=== PATIENT | female | born 1970 | race Caucasian/White ===

== ENCOUNTER 2023-01-29 20:25 | Inpatient (IN) | payer OTHER, SELFPAY ==
--- NOTE | ~2023-01-29 | XR_ITS ---
XR chest 1V portable 02/01/2023 15:18 Indication: Respiratory failure Procedure: AP portable chest Comparison: Comparison to multiple prior studies sequentially, with oldest reviewed study dated 01/20. Findings: Cardiomegaly. Central venous catheter tip in the SVC. Persistent pulmonary edema. Small rig ht pleural effusion. No significant change. No pneumothorax. No acute osseous abnormality. Impression: 1: Stable pulmonary edema are no significant interval change. Reviewed, dictated and finalized at location A. Impression: 1: Stable pulmonary edema are no significant interval change.
--- NOTE | ~2023-01-29 | XR_ITS ---
Portable chest x-ray Comparison: 02/04/2023 Clinical History: Line placement Findings: Right-sided central venous line is in satisfactory position. Probable minimal bibasilar pu lmonary edema/atelectasis. No pneumothorax. Cardiomediastinal silhouette is stable. Bones and soft t issues are unremarkable. Impression: Support line in place, as above. No pneumothorax. Minimal bibasilar pulmonary edema/atelectasis. Reviewed, dictated and finalized at location . Impression: Support line in place, as above. No pneumothorax. Minimal bibasilar pulmonary edema/atelectasis.
--- NOTE | ~2023-01-29 | XR_ITS ---
XR fl guide central line place DATE: 02/06/2023 09:04 INDICATION: Placement of right subclavian catheter TECHNIQUE: Single spot C-arm radiographic exposure of the mid and right upper chest 24.5 seconds fluoroscopy time 7.07 mGy COMPARISON: 02/04/2023 portable AP chest FINDINGS: There has been interval removal of right internal jugular large-bore dual-lumen catheter, r eplaced by a right subclavian large-bore dual-lumen catheter, distal tip overlying the lower aspect o f the superior vena cava approximately. Another catheter is noted overlying the left subclavian and brachiocephalic veins and superior vena c francesca. No obvious pneumothorax is detected. IMPRESSION: Right subclavian large-bore dual lumen catheter placement Reviewed, dictated and finalized at Location A. Reviewed, dictated and finalized at location B.
--- NOTE | ~2023-01-29 | CT_ITS ---
EXAMINATION: CT brain wo con DATE: 02/02/2023 14:34 INDICATION: Altered mental status TECHNIQUE: Computed tomography (CT) of the head was performed without intravenous contrast. Sagittal and coronal reconstructions were performed. The mA was adjusted according to patient size. Iterative reconstruction technique was employed. The dose-length product was 605.33 mGy-cm. COMPARISON: None FINDINGS: Small region of encephalomalacia at the right temporal parietal occipital region. No acute intracrani al hemorrhage, acute infarction or abnormal extra axial fluid collection. Symmetric prominence of the sulci and and subarachnoid spaces overlying the convexities consistent with mild diffuse cerebral vo lume loss. Ventricles are normal and symmetric. No mass/mass effect. The orbits are normal. Small lef t mastoid effusion. Mild mucosal thickening in the bilateral ethmoid sinuses and small amount of post erior layering fluid in the right maxillary sinus. IMPRESSION: 1. 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 No acute intracranial process. Reviewed, dictated and finalized at location A.
--- NOTE | ~2023-01-29 | XR_ITS ---
Portable chest x-ray Comparison: None Clinical History: Shortness of breath Findings: Right-sided central venous line is in satisfactory position. There is mild pulmonary edema pattern with minimal pleural effusions. Cardiomediastinal silhouette is stable. Bones and soft tiss ues are unremarkable. Impression: Mild pulmonary edema pattern with minimal pleural effusions. Support line, as above. Reviewed, dictated and finalized at location . Impression: Mild pulmonary edema pattern with minimal pleural effusions. Support line, as above.
--- NOTE | ~2023-01-29 | XR_ITS ---
EXAMINATION: XR chest 1V portable DATE: 02/03/2023 05:37 INDICATION: Hypoxia. TECHNIQUE: A single frontal view of the chest was obtained. COMPARISON: Chest single view 02/01/2023 FINDINGS: There is a diffuse interstitial pattern in the lungs. There are airspace opacities in right mid and lower lung zones and left lower lung zone. There are small pleural effusions. No pneumothora x. Cardiomegaly is noted. A right internal jugular central venous catheter is seen with tip in the hernandez perior vena cava. IMPRESSION: 1. Stable diffuse lung disease with a basilar predominance, consistent with pulmonary edema and basil ar atelectasis versus pneumonia. 2. Stable small pleural effusions. 3. Cardiomegaly. Reviewed, dictated and finalized at location E. IMPRESSION: 1. Stable diffuse lung disease with a basilar predominance, consistent with pul monary edema and basilar atelectasis versus pneumonia. 2. Stable small pleural effusions. 3. Cardiomegaly.
--- NOTE | ~2023-01-29 | XR_ITS ---
XR chest 1V portable 01/31/2023 18:24 Indication: Hypoxia Procedure: AP portable chest Comparison: 01/31/2023 Findings: Cardiomegaly. Diffuse bilateral airspace disease is unchanged. Small pleural effusions. No pneumothorax. Large bore central venous catheter tip in the SVC. Impression: 1: Stable diffuse bilateral airspace disease, most likely edema. Pneumonia less favored. 2: Small pleural effusions. Reviewed, dictated and finalized at location A. Impression: 1: Stable diffuse bilateral airspace disease, most likely edema. Pneumonia less favored. 2: Small pleural effusions.
--- NOTE | ~2023-01-29 | XR_ITS ---
Portable chest x-ray Comparison: 01/30/2023 Clinical History: Tube placement Findings: Endotracheal tube and bilateral central venous lines are in satisfactory positions. There is probable central congestive change with mild pulmonary edema pattern. Possible minimal pleural eff usions. Cardiomediastinal silhouette is stable. Bones and soft tissues are unremarkable. Impression: Support tubes, as above. Mild pulmonary edema pattern with probable minimal pleural effusions. Reviewed, dictated and finalized at [facility]. Impression: Support tubes, as above. Mild pulmonary edema pattern with probable minimal pleural effusions.
--- NOTE | ~2023-01-29 | XR_ITS ---
EXAMINATION: XR chest port-a-cath/central INDICATION: Julio catheter insertion TECHNIQUE: Portable AP chest at 1911 hours COMPARISON: 1313 hours FINDINGS: An endotracheal tube has been inserted which ends 3.7 cm above the luzma. A right internal jugular catheter ends with this tip in the right atrium. A left subclavian central venous catheter h as been inserted which ends with its tip in the proximal superior vena cava. Cardiomegaly is noted. T here is diffuse pulmonary edema with interval worsening on the left. There are small pleural effusion s. No pneumothorax is identified. IMPRESSION: 1. Left subclavian central venous catheter inserted ending with its tip in the proximal superior vena cava. 2. Intubation with endotracheal tube in satisfactory position. 3. Diffuse pulmonary edema with interval worsening on the left. 4. Cardiomegaly. Reviewed, dictated and finalized at location F.
--- NOTE | ~2023-01-29 | XR_ITS ---
EXAMINATION: XR fl guide central line place INDICATION: Julio catheter insertion TECHNIQUE: A single intraoperative fluoroscopic images submitted for review. Total fluoroscopic time was 29.6 seconds. COMPARISON: None available FINDINGS: Fluoroscopic images demonstrate a left subclavian catheter ending in the proximal superior vena cava and a right internal jugular catheter ending in the right atrium. An endotracheal tube is n oted. The luzma is not well visualized. IMPRESSION: 1. Please refer to procedure note for full details. Reviewed, dictated and finalized at location F.
--- NOTE | ~2023-01-29 | XR_ITS ---
EXAMINATION: XR chest 1V portable DATE: 02/04/2023 10:00 INDICATION: Hypoxia TECHNIQUE: frontal view of the chest was obtained. COMPARISON: Chest radiograph dated 02/03/2023 FINDINGS: Large-bore dual-lumen right internal jugular central venous catheter with distal tip at the mid super ior vena cava. There is additional smaller bore left subclavian central venous catheter with distal t ip also at the midsuperior vena cava. Opacities at the bilateral lower lung zones with blunting at co stophrenic angles consistent with small bilateral pleural effusions and associated bibasilar atelecta sis and/or pneumonia. No pneumothorax or evident pulmonary edema. Mild cardiomegaly. Chronic nonunite d left clavicle fracture. IMPRESSION: 1. Small bilateral pleural effusions with associated bibasilar atelectasis and/or pneumonia. 2. Cardiomegaly. Reviewed, dictated and finalized at location A. IMPRESSION: 1. Small bilateral pleural effusions with associated bibasilar atelectasis and/ or pneumonia. 2. Cardiomegaly.
[2023-01-29 20:29] VITALS: BP 118/52; PULSE 87; RESP 16; TEMP 36.3; O2SAT 100
[2023-01-29 23:59] VITALS: BP 134/77; PULSE 89; RESP 16; TEMP 36.1; O2SAT 99
[2023-01-30] VITALS (43 sets, daily range): BP systolic 110–163; BP diastolic 52–119; PULSE 65–96; RESP 13–22; TEMP 7–36.8; O2SAT 90–100; BMI 38.7
--- NOTE | 2023-01-30 01:05 | ECG_ITS ---
Measurements Intervals [place] Rate: 84 P: 54 RI: 133 QRS: 46 QRSD: 102 T: -6 QT: 364 QTc: 432 Interpretive Statements SINUS RHYTHM INCOMPLETE RIGHT BUNDLE BRANCH BLOCK [90+ ms QRS DURATION, TERMINAL R IN V1/V2, 40+ ms S IN I/aVL/V4/V5/V6] ST DEVIATION AND MODERATE T-WAVE ABNORMALITY, CONSIDER ANTERIOR ISCHEMIA [-0.1+ mV T WAVE IN V3/V4] ABNORMAL ECG NO PREVIOUS ECG AVAILABLE FOR COMPARISON Electronically Signed On 01-30-2023 10:30:38 CDT by Davis Vazquez M.D.
--- NOTE | 2023-01-30 01:13 | ED.GENADULT ---
HPI - General Adult General Chief complaint: Unspecified Stated complaint: new HD patient with fran cath issues Time Seen by Provider: 01/30/23 00:52 History of Present Illness HPI narrative: Patient brought to the emergency department by EMS. She had a right tunnel catheter placed [address] [facility] in [place]. She has gotten a week of dialysis at home. However she has missed the past 5 days due to the catheter being clogged. She is unsure if she is scheduled to follow-up with vascular surgery. She comes in with generalized edema and shortness of breath. Patient also appears drowsy but answers questions appropriately. At times answers are difficult to understand. Related Data Allergies Allergy/AdvReac Type Severity Reaction Status Date / Time No Known Allergies Allergy Verified 01/29/23 20:25 Review of Systems Review of Systems: Review of systems limited due to being drowsy but overall no additional review of systems other than what is documented in the HPI Exam Narrative: GENERAL: Drowsy HEAD: Normocephalic, atraumatic. EYES: PERRLA and EOMI. ENT: Nares clear, no rhinorrhea or epistaxis. Mucous membranes moist. NECK: Supple. CHEST: Clear to auscultation. No respiratory distress. Right chest tunnel catheter in place HEART: Regular rate and rhythm. ABDOMEN: Soft, nontender, nondistended. EXTREMITIES: Normal range of motion. Bilateral lower extremity edema SKIN: Warm, dry, no rash. NEURO: No focal deficits. Alert and oriented x3. PSYCH: Normal mood and affect. Course Course Emergency Course: Differential diagnosis includes but not limited to pulmonary vascular congestion, fluid overload, hyperkalemia, urinary tract infection, pneumonia Concern the patient will need to see vascular surgery due to tunnel catheter not working appropriately at her needing dialysis. We will have a very low threshold to transfer. Currently vital signs are stable and she is on a couple liters of oxygen nasal cannula Vital Signs Vital signs: Vital Signs Temperature 36.3 C L 01/29/23 20:29 Pulse Rate 87 01/29/23 20:29 Respiratory Rate 16 01/29/23 20:29 Blood Pressure 118/52 L 01/29/23 20:29 Pulse Oximetry 100 01/29/23 20:29 Oxygen Delivery Nasal Cannula 01/29/23 20:29 Oxygen Flow Rate 2 01/29/23 20:29 Temperature 36.8 C 01/30/23 06:12 Pulse Rate 78 01/30/23 06:12 Respiratory Rate 13 01/30/23 06:12 Blood Pressure 135/73 01/30/23 06:12 Pulse Oximetry 100 01/30/23 06:12 Oxygen Delivery Nasal Cannula 01/30/23 01:02 Oxygen Flow Rate 3 01/30/23 01:02 Medical Decision Making MDM Narrative Medical decision making narrative: Potassium normal. BNP significantly elevated over 30,000. Chest x-ray shows pulmonary vascular congestion consistent with fluid overload. Her hemoglobin is 6.4. This is also likely secondary to fluid overload. We will plan to transfer back to hospital where the tunneled catheter was placed Dr Bowman placed the catheter. Discussed transfer with access line at [facility] 04:50a Discussed with hospitalist at [facility]. Also transfer line talked to vascular surgery. They have accepted patient as a transfer and put her on their list Also discussed patient with hospitalist at [facility]. Patient is accepted as a transfer there and she has been placed on their list Lasix and 1 unit of packed red blood cells ordered Due to high probability of clinically significant lift threatening deterioration, the patient required my highest level of preparedness to intervene emergently. Critical care time documented not including procedures needed Vital Signs Vital Signs: Vital Signs Temperature 36.3 C L 01/29/23 20:29 Pulse Rate 87 01/29/23 20:29 Respiratory Rate 16 01/29/23 20:29 Blood Pressure 118/52 L 01/29/23 20:29 Pulse Oximetry 100 01/29/23 20:29 Oxygen Delivery Nasal Cannula 01/29/23 20:29 Oxygen
[2023-01-30 02:10] LABS: Basophils Absolute Auto 0.1 K/mm3 (0.0-0.1); Basophils Percent Auto 0.8 % (0.2-1.2); Eosinophils Absolute Auto 0.1 K/mm3 (0-0.3); Eosinophils Percent Auto 1.3 % (0-4.4); Hematocrit 21.3 % (37.0-47.0); Immature Granulocyte Absolute 0.02 K/mm3 (0.00-0.031); Immature Granulocyte Percent A 0.3 % (0-0.5); Lymphocytes Absolute Auto 2.03 K/mm3 (0.9-3.2); Lymphocytes Percent Auto 25.4 % (18.3-44.2); Mean Corpuscular Hemoglobin 29.9 pg (26-34); Mean Corpuscular Volume 99.5 fl (80-100); Mean Platelet Volume 9.8 fl (7.4-10.4); Monocytes Absolute Auto 0.4 K/mm3 (0.1-0.6); Monocytes Percent Auto 5.5 % (2.6-8.5); Neutrophils Absolute Auto 5.3 K/mm3 (1.3-6.7); Neutrophils Percent Auto 66.7 % (45.5-73.1); Platelet Count Result 262 k/mm3 (150-375); Red Blood Count 2.14 M/mm3 (4.2-5.4); Red Cell Distribution Width 17.4 % (11.5-14.5)
[2023-01-30 02:25] LABS: Alanine Aminotransferase 16 U/L (6-35); Albumin Level 3.6 g/dL (3.5-5.1); Alkaline Phosphatase 82 U/L (38-126); Anion Gap 11 mmol/L (8-16); Aspartate Amino Transferase 22 U/L (14-36); Bilirubin,Total 0.8 mg/dL (0.2-1.3); Blood Urea Nitrogen 66 mg/dL (7-17); Calcium 8.7 mg/dL (8.4-10.2); Carbon Dioxide 25 mmol/L (22-30); Chloride 101 mmol/L (98-107); Estimated CRCL calculation 10 ml/min; Estimated Glomerular Filt Rate 7; Glucose 88 mg/dL (65-110); Hemoglobin 6.4 g/dL (12.0-15.0); Potassium 4.7 mmol/L (3.4-5.0); Sodium 137 mmol/L (137-145)
[2023-01-30 02:36] LABS: NT Pro B Type Natriuretic Pept > 30000 pg/mL (19.9-100); Troponin I < 0.012 ng/mL (0.000-0.034)
[2023-01-30 03:39] LABS: INR 1.1; Prothrombin Time 14.1 Seconds (11.1-14.7)
[2023-01-30 03:40] LABS: Partial Thromboplastin Time 31.2 SECONDS (22.3-36.8)
[2023-01-30 04:01] LABS: Lactic Acid Reflex 0.9 mmol/L (0.7-2.0)
[2023-01-30 04:12] LABS: Troponin I < 0.012 ng/mL (0.000-0.034)
--- NOTE | 2023-01-30 04:49 | PC.NURSE ---
OF 447 PT ON WAIT LIST AT [facility].
--- NOTE | 2023-01-30 05:06 | PC.NURSE ---
This RN spoke derick Hyde from [facility] xfr line for triage questions. Mary Ellen requested a covid test. This RN will verbalized request to EDP Dr. Stark.
[2023-01-30] MEDS: FUROSEMIDE INJ 100 MG/10 ML VIAL 80 MG IV PUSH (05:41)
[2023-01-30 05:50] LABS: Influenza A QL RT-PCR Negative (Negative); Influenza B QL RT-PCR Negative (Negative); RSV RNA, RT-PCR Negative (Negative); SARS-CoV-2 RNA PCR Negative (Negative)
[2023-01-30 05:59] LABS: Appearance Urine Clear (Clear); Bacteria Urine None Seen /hpf; Bilirubin Urine Negative (Negative); Blood Urine Negative (Negative); Color Urine Yellow (Yellow); Glucose Urine UA Negative (Negative); Ketones Urine Negative (Negative); Leukocyte Esterase Ur Negative LEU/UL (Negative); Nitrate Urine Negative (Negative); Non Pathogenic Casts 0-2; Protein Urine 2+ mg/dL (Negative); RBC Urine 0-2 /hpf (0-2); Squamous Epithelial Cell Urine None seen /hpf (Few); Urobilinogen Urine 0.2 mg/dL (<2.0); WBC Urine 0-5 /hpf
[2023-01-30 06:10] LABS: Add Urine Microscopic? YES
[2023-01-30] MEDS: TUBING, BLOOD PLUM PUMP TUBING 1 EACH XX (06:27)
[2023-01-30] MEDS: SODIUM CHLORIDE 0.9% IV 250 ML 30 ML IV CONT (06:54)
--- NOTE | 2023-01-30 07:07 | ED.GENADULT ---
HPI - General Adult General Chief complaint: Unspecified Stated complaint: new HD patient with fran cath issues Time Seen by Provider: 01/30/23 00:52 Related Data Allergies Allergy/AdvReac Type Severity Reaction Status Date / Time No Known Allergies Allergy Verified 01/29/23 20:25 Course Vital Signs Vital signs: Vital Signs Temperature 36.3 C L 01/29/23 20:29 Pulse Rate 87 01/29/23 20:29 Respiratory Rate 16 01/29/23 20:29 Blood Pressure 118/52 L 01/29/23 20:29 Pulse Oximetry 100 01/29/23 20:29 Oxygen Delivery Nasal Cannula 01/29/23 20:29 Oxygen Flow Rate 2 01/29/23 20:29 Temperature 36.4 C 01/30/23 06:28 Pulse Rate 79 01/30/23 06:28 Respiratory Rate 14 01/30/23 06:28 Blood Pressure 134/69 01/30/23 06:28 Pulse Oximetry 100 01/30/23 06:28 Oxygen Delivery Nasal Cannula 01/30/23 01:02 Oxygen Flow Rate 3 01/30/23 01:02 Medical Decision Making Vital Signs Vital Signs: Vital Signs Temperature 36.3 C L 01/29/23 20:29 Pulse Rate 87 01/29/23 20:29 Respiratory Rate 16 01/29/23 20:29 Blood Pressure 118/52 L 01/29/23 20:29 Pulse Oximetry 100 01/29/23 20:29 Oxygen Delivery Nasal Cannula 01/29/23 20:29 Oxygen Flow Rate 2 01/29/23 20:29 Temperature 36.4 C 01/30/23 06:28 Pulse Rate 79 01/30/23 06:28 Respiratory Rate 14 01/30/23 06:28 Blood Pressure 134/69 01/30/23 06:28 Pulse Oximetry 100 01/30/23 06:28 Oxygen Delivery Nasal Cannula 01/30/23 01:02 Oxygen Flow Rate 3 01/30/23 01:02 Lab Data 01/30/23 02:04 01/30/23 02:04 Labs: Lab Results 01/30/23 01/30/23 01/30/23 Range/Units 02:04 03:20 03:43 WBC 8.0 (4.5-10.0) K/mm3 RBC 2.14 L (4.2-5.4) M/mm3 Hgb 6.4 L* (12.0-15.0) g/dL Hct 21.3 L (37.0-47.0) % MCV 99.5 (80-100) fl MCH 29.9 (26-34) pg MCHC 30.0 L (32-36) g/dl RDW 17.4 H (11.5-14.5) % Plt Count 262 (150-375) k/mm3 MPV 9.8 (7.4-10.4) fl Immature Gran % (Auto) 0.3 (0-0.5) % Neut % (Auto) 66.7 (45.5-73.1) % Lymph % (Auto) 25.4 (18.3-44.2) % [place] % (Auto) 5.5 (2.6-8.5) % Eos % (Auto) 1.3 (0-4.4) % Baso % (Auto) 0.8 (0.2-1.2) % Lymph # (Auto) 2.03 (0.9-3.2) K/mm3 [place] # (Auto) 0.4 (0.1-0.6) K/mm3 Eos # (Auto) 0.1 (0-0.3) K/mm3 Baso # (Auto) 0.1 (0.0-0.1) K/mm3 Abs Immat Gran (auto) 0.02 (0.00-0.031) K/mm3 Absolute Neuts (auto) 5.3 (1.3-6.7) K/mm3 Absolute Nucleated RBC 0.0 (0.0-0.012) K/mm3 Nucleated RBC % 0.0 (0.0-0.2) % PT 14.1 (11.1-14.7) Seconds INR 1.1 APTT 31.2 (22.3-36.8) SECONDS Sodium 137 (137-145) mmol/L Potassium 4.7 (3.4-5.0) mmol/L Chloride 101 (98-107) mmol/L Carbon Dioxide 25 (22-30) mmol/L Anion Gap 11 (8-16) mmol/L BUN 66 H (7-17) mg/dL Creatinine 6.60 H (0.7-1.0) mg/dL Estim Creat Clear Calc 10 ml/min Estimated GFR 7 L (59 - ) Glucose 88 (65-110) mg/dL Lactic Acid 0.9 (0.7-2.0) mmol/L Calcium 8.7 (8.4-10.2) mg/dL Total Bilirubin 0.8 (0.2-1.3) mg/dL AST 22 (14-36) U/L ALT 16 (6-35) U/L Alkaline Phosphatase 82 (38-126) U/L Troponin I < 0.012 < 0.012 (0.000-0.034) ng/mL NT-Pro-B Natriuret Pep > 56196 H (19.9-100) pg/mL Total Protein 7.0 (6.3-8.2) g/dL Albumin 3.6 (3.5-5.1) g/dL Urine Color (Yellow) Urine Appearance (Clear) Urine pH (5.0-9.0) Ur Specific [place] (1.001-1.035) Urine Protein (Negative) mg/dL Urine Glucose (UA) (Negative) mg/dL Urine Ketones (Negative) mg/dL Ur Blood (Man) (Negative) Urine Nitrate (Negative) Urine Bilirubin (Negative) Urine Urobilinogen (<2.0) mg/dL Leukocyte Esterase Rfl (Negative) WILLIAM/UL Urine RBC (0-2) /hpf Urine WBC /hpf Ur Squamous Epith Cells (Few) /hpf Urine Bacteria /hpf Urine Casts Influenza A (RT-PCR)
--- NOTE | 2023-01-30 07:09 | PC.NURSE ---
Report given to MISHA Coelho at this time.
--- NOTE | 2023-01-30 09:10 | ADMGEN ---
This patient, Jeanette Owens, was admitted to Medical Room 348-01. Patient/family oriented to hospital policies and general routines including ID bracelet, bed and alarms, visiting hours, pain management, procedures, bathroom and other care routines, personal items, smoking policy, room service/diet, and visiting hours. Information on how to activate the Rapid Response Team has been discussed. Patient/Family are encouraged to report perceived risks to care and to ask questions if they do not understand what they are told or what they should do.
[2023-01-30 10:12] LABS: Hepatitis B Surface Antigen Negative (Negative)
[2023-01-30 10:30] LABS: Hepatitis B Surface Anti Res Negative
--- NOTE | 2023-01-30 11:38 | PM.CNGS ---
Assessment and Plan Assessment and plan (1) Hemodialysis catheter malfunction: Code(s): T82.41XA - Breakdown (mechanical) of vascular dialysis catheter, initial encounter Status: Acute Assessment and Plan: This patient is on hemodialysis for ESRD and has missed at least one of her last dialysis treatments due to malfunction of her tunnelled dialysis catheter. She has fluid overload and Nephrology has been consulted to manage her ESRD. We have discussed the case with Nephrology, who asked us to replace her dialysis catheter today. It seems unlikely that she could tolerate lying flat due to her respiratory status, and will likely need to go to the OR rather than doing this at the bedside if possible. Will plan surgery accordingly with Dr. Painting for placement of temporary hemodialysis catheter placement today and removal of tunnelled dialysis catheter. Discussed the procedure with the patient in detail, as well as the risks, benefits, and expected outcomes. She agrees to proceed. Will keep her NPO. (2) End stage kidney disease: Code(s): N18.6 - End stage renal disease Status: Chronic (3) Fluid overload: Qualifiers: Hypervolemia type: unspecified Qualified Code(s): E87.70 - Fluid overload, unspecified Code(s): E87.70 - Fluid overload, unspecified Status: Acute (4) Anemia: Qualifiers: Anemia type: unspecified type Qualified Code(s): D64.9 - Anemia, unspecified Code(s): D64.9 - Anemia, unspecified Status: Acute Plan I have discussed the patient's case and plan of care with Dr. Painting. History of Present Illness Consult details Consult date: 01/30/23 Reason for consult: other (Replacement of dialysis catheter) Requesting physician: Claribel Stark MD Narrative: This is a 52-year-old woman with end-stage renal disease on hemodialysis who we have been asked to see in surgical consultation for replacement of her dialysis catheter. The patient is a poor historian and her history is primarily obtained by review of the electronic medical record and information that she can recall with her history. She was brought into the ER overnight via EMS from [facility] with shortness of breath and generalized edema. She reportedly missed at least her last treatment of dialysis over the weekend. She reports typically having dialysis on Saturday, , and Saturday. She reports recent confusion and cannot recall her last day of dialysis, but states she was told she was unable to be dialyzed on Saturday. She was previously living at home, but was hospitalized at [facility] a few weeks ago and was started on hemodialysis at that time. She was then discharged to [facility]. She had a temporary dialysis catheter placed at [facility] during the hospitalization and has recently been getting treatment at [facility]. In the ER, labs were significant for hemoglobin of 6.4, BUN 66, and creatinine 6.6. BNP was greater than 30,000. She was given 80 mg of IV push Lasix. She additionally was given 1 unit of packed red blood cells for her anemia. Nephrology was consulted for her end-stage renal disease. We have additionally been consulted due to her malfunctioning dialysis catheter. She is now seen on the medical floor. She is extremely short of breath and it is difficult for her to even complete a sentence due to her work of breathing. This is her only complaint at this time. Nursing has contacted the half-way for some additional history and her home medications. Per nursing, the patient is not currently on any anticoagulation. Review of Systems Review of Systems: ROS unobtainable: Yes unobtainable due to mental status (Limited history as mentioned in HPI) PMF Past Medical History Medical History End stage kidney disease Social History Social History
--- NOTE | 2023-01-30 13:15 | P.CONNP_ITS ---
Assessment and Plan Assessment and plan (1) LEMUEL (acute kidney injury): Code(s): N17.9 - Acute kidney failure, unspecified Status: Acute Assessment and Plan: * recently started on hemodialysis due to ATN secondary to septic shock * baseline creatinine ~ 1.6 - 2.0mg/dl * currently dialysis dependent * DUF today * HD tomorrow * follow electrolytes, volume status, and clearance (2) Hemodialysis catheter malfunction: Code(s): T82.41XA - Breakdown (mechanical) of vascular dialysis catheter, initial encounter Status: Acute Assessment and Plan: * HD catheter non-functional for the last week if not longer * hence, in adequate dialysis in this time frame * temporary HD catheter for dialysis * plan new tunneled HD catheter once respiratory status stabilizes * discussed case with Dr. Painting (3) Acute hypoxemic respiratory failure: Code(s): J96.01 - Acute respiratory failure with hypoxia Status: Acute Assessment and Plan: * due to volume overload/pulmonary edema +/- anemia * fluid removal with DUF/HD today and tomorrow * remains at risk for further respiratory support * continue supportive therapy (4) Anemia: Qualifiers: Anemia type: unspecified type Qualified Code(s): D64.9 - Anemia, un specified Code(s): D64.9 - Anemia, unspecified Status: Acute Assessment and Plan: * as noted on admission * presumable related to LEMUEL/dialysis dependence * GI loss?? * PRBC transfusion per protocol * Epogen with HD * follow trend of H/H Greater than 20 min was spent in detail discussion with the patient, her outpatient dialysis unit, her primary senior quality assurance analyst, Dr. Bradley, as well as ER physician earlier today. Her respiratory status appears to be quite tenuous at the time of my visit. She was informed of the 10th of planned the place a new dialysis catheter sometime today with subsequent dialysis to follow in the hopes that this will improve / stabilize her respiratory status. She appeared to voice understanding. I will continue follow patient with you while she remains hospitalized make further recommendations during her hospital course. Thank you for allowing me to participate in care this patient. History of Present Illness Reason for Consult Consult date: 01/30/23 Reason for consult: acute renal failure (requiring dialysis) Chief Complaint Chief complaint: esrd History of Present Illness Narrative: Almost all the information that I have obtained is from review of the electronic medical record, discussion with the ER physician, as well as discussion with her outpatient dialysis unit and her primary senior quality assurance analyst, Dr. Karen Bradley, as is difficult to get a full and complete history from the patient at this time. The patient is a very pleasant 52-year-old female with a past medical history as outlined below who presented from her nursing facility to [facility] emergency room earlier today with complaints of shortness of breath and difficulty breathing in association with worsening edema. Apparently, for the last week if not longer the patient is has been unable to receive her regularly scheduled dialysis. Apparently her tunneled dialysis catheter has been functioning very well and despite multiple interventions in terms of increased use of heparin, also place, patient positioning...her HD catheter continues to not work properly. She was apparently arrange to get outpatient exchange of her tunnel dialysis catheter but apparently this did not seem to happen at times. The nursing staff noted that the patient's suman
--- NOTE | 2023-01-30 13:15 | PM.CNNEP ---
Assessment and Plan Assessment and plan (1) LEMUEL (acute kidney injury): Code(s): N17.9 - Acute kidney failure, unspecified Status: Acute Assessment and Plan: recently started on hemodialysis due to ATN secondary to septic shock baseline creatinine ~ 1.6 - 2.0mg/dl currently dialysis dependent DUF today HD tomorrow follow electrolytes, volume status, and clearance (2) Hemodialysis catheter malfunction: Code(s): T82.41XA - Breakdown (mechanical) of vascular dialysis catheter, initial encounter Status: Acute Assessment and Plan: HD catheter non-functional for the last week if not longer hence, in adequate dialysis in this time frame temporary HD catheter for dialysis plan new tunneled HD catheter once respiratory status stabilizes discussed case with Dr. Painting (3) Acute hypoxemic respiratory failure: Code(s): J96.01 - Acute respiratory failure with hypoxia Status: Acute Assessment and Plan: due to volume overload/pulmonary edema +/- anemia fluid removal with DUF/HD today and tomorrow remains at risk for further respiratory support continue supportive therapy (4) Anemia: Qualifiers: Anemia type: unspecified type Qualified Code(s): D64.9 - Anemia, unspecified Code(s): D64.9 - Anemia, unspecified Status: Acute Assessment and Plan: as noted on admission presumable related to LEMUEL/dialysis dependence GI loss?? PRBC transfusion per protocol Epogen with HD follow trend of H/H Greater than 20 min was spent in detail discussion with the patient, her outpatient dialysis unit, her primary samples and repairs preparer, Dr. Bradley, as well as ER physician earlier today. Her respiratory status appears to be quite tenuous at the time of my visit. She was informed of the 10th of planned the place a new dialysis catheter sometime today with subsequent dialysis to follow in the hopes that this will improve / stabilize her respiratory status. She appeared to voice understanding. I will continue follow patient with you while she remains hospitalized make further recommendations during her hospital course. Thank you for allowing me to participate in care this patient. History of Present Illness Reason for Consult Consult date: 01/30/23 Reason for consult: acute renal failure (requiring dialysis) Chief Complaint Chief complaint: esrd History of Present Illness Narrative: Almost all the information that I have obtained is from review of the electronic medical record, discussion with the ER physician, as well as discussion with her outpatient dialysis unit and her primary samples and repairs preparer, Dr. Karen Bradley, as is difficult to get a full and complete history from the patient at this time. The patient is a very pleasant 52-year-old female with a past medical history as outlined below who presented from her nursing facility to [facility] emergency room earlier today with complaints of shortness of breath and difficulty breathing in association with worsening edema. Apparently, for the last week if not longer the patient is has been unable to receive her regularly scheduled dialysis. Apparently her tunneled dialysis catheter has been functioning very well and despite multiple interventions in terms of increased use of heparin, also place, patient positioning...her HD catheter continues to not work properly. She was apparently arrange to get outpatient exchange of her tunnel dialysis catheter but apparently this did not seem to happen at times. The nursing staff noted that the patient's breathing started become more radically in association with hypoxia. Furthermore, it was increasing swelling edema in her lower extremities and so she was sent to the emergency room for further assessed Workup and evaluation in the emergency room demonstrated labs consistent with her acute kidney injury/acute renal failure requiring renal placement therapy/d
--- NOTE | 2023-01-30 16:57 | WPDANESEPPF ---
Anes - Initial Pre Proc Eval Procedure: Operation Date: 01/30/23 17:15 Proposed Procedures p Insertion Julio Catheter - Gaudencio Painting MD Date/Time: 01/30/23 16:57 Surgeon: Katie Mares MD Pre Op Diagnosis: esrd Patient Data Age: 52 Gender: F Height: 1.6 m Weight: 99.34 kg Last Vital Signs Temp 36.4 C 01/30/23 14:21 Pulse 88 01/30/23 16:00 Resp 18 01/30/23 14:21 BP 141/79 H 01/30/23 14:21 Pulse Ox 100 01/30/23 14:21 O2 Del Method Nasal Cannula 01/30/23 01:02 O2 Flow Rate 3 01/30/23 01:02 Allergies Allergy/AdvReac Type Severity Reaction Status Date / Time metformin Allergy Unknown Verified 01/30/23 16:58 Home Medications Medication Instructions Recorded Confirmed Type albuterol sulfate 90 mcg/actuation 2 puff inhalation Q4H PRN Wheezing 01/30/23 01/30/23 History aerosol inhaler (Proventil HFA) atorvastatin 20 mg tablet 20 mg PO HS 01/30/23 01/30/23 History bisacodyl 10 mg rectal suppository 10 mg RECTAL DAILY PRN Constipation 01/30/23 01/30/23 History calcium carbonate 600 mg-vitamin 2 tablet PO DAILY 01/30/23 01/30/23 History D3 10 mcg (400 unit) tablet (Calcium 600 + D(3)) carvedilol 6.25 mg tablet 6.25 mg PO BID 01/30/23 01/30/23 History citalopram 40 mg tablet 20 mg PO DAILY 01/30/23 01/30/23 History cyclobenzaprine 10 mg tablet 10 mg PO HS PRN Muscle Spasm 01/30/23 01/30/23 History epoetin pérez 10,000 unit/mL 10,000 unit subcut USEASDIRECTD 01/30/23 01/30/23 History injection solution gabapentin 300 mg capsule 300 mg PO BID 01/30/23 01/30/23 History magnesium citrate (Citroma oral 296 ml PO DAILY PRN Constipation 01/30/23 01/30/23 History solution) magnesium hydroxide 400 mg/5 mL 30 ml PO HS PRN Constipation 01/30/23 01/30/23 History oral suspension (Milk of Magnesia) omeprazole magnesium 20 mg 20 mg PO DAILY 01/30/23 01/30/23 History tablet,delayed release (Prilosec OTC) ondansetron HCl 4 mg tablet 4 mg PO Q6H PRN Nausea And Vomiting 01/30/23 01/30/23 History oxybutynin chloride 5 mg 5 mg PO DAILY 01/30/23 01/30/23 History tablet,extended release 24 hr ropinirole 1 mg tablet 1 mg PO DAILY 01/30/23 01/30/23 History sodium phosphates 19 gram-7 See Rx Instructions .Route 01/30/23 01/30/23 History gram/118 mL enema (Fleet Enema) .COMPLEX PRN Constipation umeclidinium 62.5 mcg/actuation 1 inh inhalation DAILY 01/30/23 01/30/23 History blister powder for inhalation (Incruse Ellipta) Laboratory Tests 01/30/23 01/30/23 01/30/23 02:04 03:20 03:43 WBC 8.0 K/mm3 (4.5-10.0) RBC 2.14 L M/mm3 (4.2-5.4) Hgb 6.4 L* g/dL (12.0-15.0) Hct 21.3 L % (37.0-47.0) MCV 99.5 fl (80-100) MCH 29.9 pg (26-34) MCHC 30.0 L g/dl (32-36) RDW 17.4 H % (11.5-14.5) Plt Count 262 k/mm3 (150-375) MPV 9.8 fl (7.4-10.4) Immature Gran % (Auto) 0.3 % (0-0.5) Neut % (Auto) 66.7 % (45.5-73.1) Lymph % (Auto) 25.4 % (18.3-44.2) [place] % (Auto) 5.5 % (2.6-8.5) Eos % (Auto) 1.3 % (0-4.4) Baso % (Auto) 0.8 % (0.2-1.2) Lymph # (Auto) 2.03 K/mm3 (0.9-3.2) [place] # (Auto) 0.4 K/mm3 (0.1-0.6) Eos # (Auto) 0.1 K/mm3 (0-0.3) Baso # (Auto) 0.1 K/mm3 (0.0-0.1) Abs Immat Gran (auto) 0.02 K/mm3 (0.00-0.031) Absolute Neuts (auto) 5.3 K/mm3 (1.3-6.7) Absolute Nucleated RBC 0.0 K/mm3 (0.0-0.012) Nucleated RBC % 0.0 % (0.0-0.2) PT 14.1 Seconds (11.1-14.7) INR 1.1 APTT 31.2 SECONDS (22.3-36.8) Sodium 137 mmol/L (137-145) Potassium 4.7 mmol/L (3.4-5.0) Chloride 101 mmol/L (98-107) Carbon Dioxide 25 mmol/L (22-30) Anion Gap 11 mmol/L (8-16) BUN 66 H mg/dL (7-17) Creatinine 6.60 H mg/dL
--- NOTE | 2023-01-30 17:06 | PCRCNOTE ---
Per RN, Pt refuses CPAP at this time.
[2023-01-30 17:23] LABS: Glucose Point of Care 83 mg/dl (65-105)
--- NOTE | 2023-01-30 17:52 | WPDHPUPDATE1 ---
History and Physical Update Update Date/Time: 01/30/23 17:52 History and Physical has been reviewed, including an updated exam of the patient. There are NO changes in the patient's condition. Risks, benefits, and alternatives have been discussed and questions answered. Patient agrees to proceed with procedure.
[2023-01-30] MEDS: SODIUM CHLORIDE 0.9% IV 500 ML 30 ML IV CONT (18:04)
[2023-01-30] MEDS: ceFAZolin 2 GM/D5W 50 ML 2 GM/50 ML BAG IVPB (18:31)
--- NOTE | 2023-01-30 19:06 | W.PM.PROC2 ---
Procedure Note - Detailed Date of Procedure 01/30/23 Pre-op Diagnosis End-stage renal disease, volume overload, respiratory distress secondary to volume overload. Post-op Diagnosis Same Procedure Performed Placement of a non tunneled temporary left subclavian vein Julio hemodialysis catheter with intraoperative fluoroscopy Surgeon Gaudencio Paintign MD Anesthesia General Indications Patient is a 52-year-old female who came to the emergency room in respiratory distress. She was volume overloaded as she has end-stage renal disease but her tunneled hemodialysis catheter has not been functional for over a week and she has missed multiple hemodialysis sessions. She needs emergent temporary dialysis access and so she presents now for placement of a Julio non tunneled temporary hemodialysis catheter for hemodialysis this evening. Due to the fact she cannot lie flat due to her respiratory status she is brought to the operating room for general endotracheal intubation anesthesia to ensure adequate oxygenation and control of her airway. Findings None Description of Procedure After informed consent was obtained patient was brought to the operating room where she was placed in the supine position and then general endotracheal anesthesia was administered. The area the left upper anterior chest and neck was then prepped and draped in usual sterile fashion. A time-out was then performed correctly identifying the patient as well as procedure to be performed. She was given 2g of Ancef for perioperative IV antibiotics. I then placed the patient in the head-down Trendelenburg position. A long 18gauge needle was then used to cannulate the left subclavian vein on the 1st pass without any difficulty. There was prompt return of dark venous appearing blood. Utilizing the Seldinger technique a guidewire was then advanced through the needle into the left subclavian vein assessment down into the superior vena cava. Intraoperative fluoroscopy was used to visualize the guidewire and ensuring that it was in the proper position. I then enlarged the insertion site of the guidewire at the tip with a scalpel and then advanced dilators over the guidewire to enlarge to be not a me. Lastly a non tunneled temporary Julio hemodialysis catheter was advanced over the guidewire into the left subclavian vein subsequently down into the proximal superior vena cava. The guide wire was removed and the catheter was secured in place with sutures. All 3 ports of the catheter were then aspirated and flushed easily with good flows. I then flushed each port with heparinized saline solution. There was then cleaned and the sterile dressing was applied. The patient tolerated the procedure well no complications. All sponge, needles, and instrument counts were correct at the end the procedure. Estimated blood loss procedure was 25cc. The patient was taken to the intensive care unit intubated to have control of her airway and because of her respiratory distress prior to surgery until she can get hemodialysis sessions and removed excess fluid correct her volume status. Postprocedure chest x-ray is pending at the time of dictation Implants Non tunneled Julio hemodialysis catheter with 3rd pigtail port Estimated Blood Loss 25 Drains No Packing No Pathology None sent Complications No immediate complications Condition Stable Disposition PACU [facility] Billing Surgery - Charge Forward: Surgery Billing
[2023-01-30] MEDS: FENTANYL 2,500MCG/NS250ML(*CRX 2,500 MCG/250 ML BAG IV CONT (19:58)
[2023-01-30] MEDS: MIDAZOLAM HCL (*CRX) 2 MG/2 ML VIAL IV PUSH (19:58)
[2023-01-30 20:12] LABS: Alveolar/Arterial O2 Gradient 162.1 mmHg; Base Excess ABG -2.8 mEq/l (+/-2.0); Carboxyhemoglobin 0.2 % THb (0-2.0); Fractional Inspired Oxygen 60 %; HCO3 ABG 23.3 mEq/l (22.0-26.0); Methemoglobin ABG 0.6 %THb (0-1.5); Oxygen Content ABG 11.2 %vol (16.0-22.0); Oxygen Saturation ABG 99.4 % (95.0-100.0); Oxyhemoglobin 97.4 % THb (90.0-100.0); PCO2 ABG 46.5 mmHg (35.0-45.0); PO2 ABG 214.6 mmHg (80.0-100.0); PO2 FiO2 Ratio Arterial Blood 3.58 %; Reduced Hemoglobin 1.8 %THb (0-5.0); pH ABG 7.317 (7.350-7.450)
[2023-01-30 20:15] LABS: Device VENTILATOR; Modified Allen's Test Pass; Site Drawn LEFT RADIAL; Total Hemoglobin 7.8 g/dL (12.0-18.0)
[2023-01-30 20:16] LABS: Arterial Blood Gas PEEP 8 cmH2O; Arterial Blood Gas Tidal Volume 400 ml; Arterial Blood Gas Vent Mode CMV; Arterial Blood Gas Ventilator rate 18 /MIN
--- NOTE | 2023-01-30 21:25 | PM.IMHP ---
H&P: HPI History of Present Illness Date/Time: 01/30/23 21:25 Chief Complaint: Generalized Edema, SOB, Missed Dialysis Narrative: 52-year-old female presents here from [facility] with generalized edema, shortness of breath, malfunctioning dialysis catheter with subsequent missed dialysis with past medical history of ESRD requiring HD, COPD, cardiomegaly, diabetes and hypertension. Patient presented to the emergency department early this morning with generalized swelling, shortness of breath. Symptoms started after dialysis catheter malfunctioned, patient is estimated to have missed 1 week of dialysis. Attends dialysis on Tuesdays, , Saturdays. Dialysis catheter was placed approximately 2 weeks ago at [facility] in [place]. Initial lab work showed anemia -hemoglobin of 6.4. Transfused 1 unit and given Lasix. Patient also has a new oxygen requirement, baseline is on 2L nasal cannula and is now requiring 4L initially admitted to the floor, to await surgery for new dialysis catheter. New left-sided dialysis catheter placed this evening with difficulty arousing patient. Remains intubated and was transferred to the ICU. History obtained from ED provider report, chart review, and nursing report due to patient's current condition. Review of Systems Review of Systems: ROS unobtainable: Yes unobtainable due to endotracheal tube, unobtainable due to medical condition and unobtainable due to mental status PMFSH Past Medical History Medical History Cardiomegaly COPD (chronic obstructive pulmonary disease) Diabetes type 2, controlled End stage kidney disease Hypertension Social History Social History Social History: Patient previously lived at home independently and recently was hospitalized at [facility]. She was discharged to [facility] a few weeks ago. Smoking status: Never smoker Alcohol intake: former Substance use: never Lack of Transportation: No Lack of Food: Never True Current Housing: Decline to Answer Concerned About Future Housing: Decline to Answer Difficulty Paying Gas/Electric Bills: Decline to Answer Difficulty Paying for Meds: Decline to Answer Currently Unemployed: Decline to Answer Education: Decline to Answer Difficulty w/ Childcare or Family Care: Decline to Answer Spiritual care concerns: No Meds Home Medications and Allergies Home Medications Medication Instructions Recorded Confirmed Type albuterol sulfate 90 mcg/actuation 2 puff inhalation Q4H PRN Wheezing 01/30/23 01/30/23 History aerosol inhaler (Proventil HFA) atorvastatin 20 mg tablet 20 mg PO HS 01/30/23 01/30/23 History bisacodyl 10 mg rectal suppository 10 mg RECTAL DAILY PRN Constipation 01/30/23 01/30/23 History calcium carbonate 600 mg-vitamin 2 tablet PO DAILY 01/30/23 01/30/23 History D3 10 mcg (400 unit) tablet (Calcium 600 + D(3)) carvedilol 6.25 mg tablet 6.25 mg PO BID 01/30/23 01/30/23 History citalopram 40 mg tablet 20 mg PO DAILY 01/30/23 01/30/23 History cyclobenzaprine 10 mg tablet 10 mg PO HS PRN Muscle Spasm 01/30/23 01/30/23 History epoetin pérez 10,000 unit/mL 10,000 unit subcut USEASDIRECTD 01/30/23 01/30/23 History injection solution gabapentin 300 mg capsule 300 mg PO BID 01/30/23 01/30/23 History magnesium citrate (Citroma oral 296 ml PO DAILY PRN Constipation 01/30/23 01/30/23 History solution) magnesium hydroxide 400 mg/5 mL 30 ml PO HS PRN Constipation 01/30/23 01/30/23 History oral suspension (Milk of Magnesia) omeprazole magnesium 20 mg 20 mg PO DAILY 01/30/23 01/30/23 History tablet,delayed release (Prilosec OTC) ondansetron HCl 4 mg tablet 4 mg PO Q6H PRN Nausea And Vomiting 01/30/23 01/30/23 History oxybutynin chloride 5 mg 5 mg PO DAILY 01/30/23 01/30/23 History tablet,extended release 24 hr ropinirole 1 mg
[2023-01-30] MEDS: MINERAL OIL/WHITE PETROLATUM OINTMENT 1 APPLIC EACH EYE (22:00)
[2023-01-30] MEDS: EPOETIN ALFA-EPBX 10,000 UNITS/ML VIAL 10000 UNITS IV PUSH (22:43)
[2023-01-31] VITALS (34 sets, daily range): BP systolic 106–164; BP diastolic 65–111; PULSE 64–104; RESP 12–20; TEMP 36.5–37.1; O2SAT 88–100; BMI 38.7
[2023-01-31 04:04] LABS: Basophils Absolute Auto 0.1 K/mm3 (0.0-0.1); Basophils Percent Auto 0.9 % (0.2-1.2); Eosinophils Absolute Auto 0.1 K/mm3 (0-0.3); Eosinophils Percent Auto 0.9 % (0-4.4); Hematocrit 23.8 % (37.0-47.0); Hemoglobin 7.2 g/dL (12.0-15.0); Immature Granulocyte Absolute 0.01 K/mm3 (0.00-0.031); Immature Granulocyte Percent A 0.2 % (0-0.5); Lymphocytes Absolute Auto 1.35 K/mm3 (0.9-3.2); Mean Corpuscular HGB Conc 30.3 g/dl (32-36); Mean Corpuscular Volume 99.2 fl (80-100); Mean Platelet Volume 9.6 fl (7.4-10.4); Monocytes Absolute Auto 0.5 K/mm3 (0.1-0.6); Monocytes Percent Auto 7.7 % (2.6-8.5); Neutrophils Percent Auto 67.3 % (45.5-73.1); Platelet Count Result 257 k/mm3 (150-375); Red Cell Distribution Width 17.8 % (11.5-14.5); White Blood Count 5.9 K/mm3 (4.5-10.0)
[2023-01-31 04:16] LABS: Alanine Aminotransferase 13 U/L (6-35); Albumin Level 3.5 g/dL (3.5-5.1); Alkaline Phosphatase 80 U/L (38-126); Anion Gap 12 mmol/L (8-16); Aspartate Amino Transferase 18 U/L (14-36); Bilirubin,Total 0.7 mg/dL (0.2-1.3); Blood Urea Nitrogen 66 mg/dL (7-17); Calcium 9.2 mg/dL (8.4-10.2); Carbon Dioxide 24 mmol/L (22-30); Chloride 102 mmol/L (98-107); Estimated CRCL calculation 10 ml/min; Estimated Glomerular Filt Rate 6; Glucose 73 mg/dL (65-110); Magnesium 1.9 mg/dL (1.6-2.3); Potassium 4.9 mmol/L (3.4-5.0); Sodium 138 mmol/L (137-145)
[2023-01-31 04:56] LABS: Alveolar/Arterial O2 Gradient 152.5 mmHg; Base Excess ABG -2.6 mEq/l (+/-2.0); Carboxyhemoglobin 0.3 % THb (0-2.0); Fractional Inspired Oxygen 40 %; HCO3 ABG 23.4 mEq/l (22.0-26.0); Methemoglobin ABG 0.3 %THb (0-1.5); Oxygen Content ABG 11.9 %vol (16.0-22.0); Oxyhemoglobin 92.4 % THb (90.0-100.0); PCO2 ABG 45.8 mmHg (35.0-45.0); Total Hemoglobin 9.1 g/dL (12.0-18.0); pH ABG 7.326 (7.350-7.450)
[2023-01-31 04:57] LABS: Device VENTILATOR; Modified Allen's Test Pass; Site Drawn RIGHT RADIAL
[2023-01-31 04:58] LABS: Arterial Blood Gas PEEP 8 cmH2O; Arterial Blood Gas Tidal Volume 400 ml; Arterial Blood Gas Vent Mode CMV; Arterial Blood Gas Ventilator rate 20 /MIN
[2023-01-31] MEDS: MINERAL OIL/WHITE PETROLATUM OINTMENT 1 APPLIC EACH EYE (07:30)
--- NOTE | 2023-01-31 07:44 | PC.NURSE ---
01/30/23. Patient received from OR to ICU-9.
--- NOTE | 2023-01-31 10:16 | WPDANESPN ---
Anes - Prog Note Post-Op Date/Time: 01/31/23 10:16 Cardiovascular status: normal Respiratory status: normal Airway patency: baseline Mental status: baseline Post-Op hydration status: normal Vital Signs: Last Vital Signs Temp 97.8 F 01/31/23 08:00 Pulse 84 01/31/23 10:00 Resp 20 01/31/23 08:20 BP 140/76 01/31/23 08:00 Pulse Ox 94 01/31/23 10:00 O2 Del Method Mechanical Ventilation 01/31/23 10:00 O2 Flow Rate 3 01/30/23 18:04 FiO2 40 01/31/23 10:00 Pain Score (VAS): 0/10 I/O: Intake & Output 01/30/23 01/31/23 01/31/23 23:59 07:59 15:59 Output Total 320 450 Balance -320 -450 Laboratory Tests 01/31/23 03:52 01/31/23 03:52 01/30/23 01/30/23 01/30/23 03:43 17:16 19:59 WBC RBC Hgb Hct MCV MCH MCHC RDW Plt Count MPV Immature Gran % (Auto) Neut % (Auto) Lymph % (Auto) [place] % (Auto) Eos % (Auto) Baso % (Auto) Lymph # (Auto) [place] # (Auto) Eos # (Auto) Baso # (Auto) Abs Immat Gran (auto) Absolute Neuts (auto) Absolute Nucleated RBC Nucleated RBC % Puncture Site Left radial ABG pH 7.317 L ABG pCO2 46.5 H ABG pO2 214.6 H ABG PO2/FiO2 Ratio 3.58 ABG HCO3 23.3 ABG O2 Saturation 99.4 ABG O2 Content 11.2 L ABG Base Excess -2.8 A-a Gradient 162.1 Oxyhemoglobin 97.4 Carboxyhemoglobin 0.2 Methemoglobin 0.6 Reduced Hemoglobin 1.8 Total Hemoglobin 7.8 L* O2 Delivery Device Ventilator O2 Liters/Min Not Reportable Minute Volume Not Reportable Vent Rate 18 Vent Mode Cmv FiO2 60 Tidal Volume 400 PEEP 8 Peak Inspir Pressure Not Reportable Pressure Support Not Reportable Sodium Potassium Chloride Carbon Dioxide Anion Gap BUN Creatinine Estim Creat Clear Calc Estimated GFR Glucose POC Capillary Glucose 83 Calcium Magnesium Total Bilirubin AST ALT Alkaline Phosphatase Total Protein Albumin Hep Bs Antibody Negative 01/31/23 01/31/23 03:52 04:39 WBC 5.9 RBC 2.40 L Hgb 7.2 L Hct 23.8 L MCV 99.2 MCH 30.0 MCHC 30.3 L RDW 17.8 H Plt Count 257 MPV 9.6 Immature Gran % (Auto) 0.2 Neut % (Auto) 67.3 Lymph % (Auto) 23.0 [place] % (Auto) 7.7 Eos % (Auto) 0.9 Baso % (Auto) 0.9 Lymph # (Auto) 1.35 [place] # (Auto) 0.5 Eos # (Auto) 0.1 Baso # (Auto) 0.1 Abs Immat Gran (auto) 0.01 Absolute Neuts (auto) 4.0 Absolute Nucleated RBC 0.0 Nucleated RBC % 0.0 Puncture Site Right radial ABG pH 7.326 L ABG pCO2 45.8 H ABG pO2 80.0 ABG PO2/FiO2 Ratio 2.00 ABG HCO3 23.4 ABG O2 Saturation 95.0 ABG O2 Content 11.9 L ABG Base Excess -2.6 A-a Gradient 152.5 Oxyhemoglobin 92.4 Carboxyhemoglobin 0.3 Methemoglobin 0.3 Reduced Hemoglobin 7.0 H Total Hemoglobin 9.1 L O2 Delivery Device Ventilator O2 Liters/Min Not Reportable Minute Volume Not Reportable Vent Rate 20 Vent Mode Cmv FiO2 40 Tidal Volume 400 PEEP 8 Peak Inspir Pressure Not Reportable Pressure Support Not Reportable Sodium 138 Potassium 4.9 Chloride 102 Carbon Dioxide 24 Anion Gap 12 BUN 66 H Creatinine 7.00 H Estim Creat Clear Calc 10 Estimated GFR 6 L Glucose 73 POC Capillary Glucose Calcium 9.2 Magnesium 1.9 Total Bilirubin 0.7 AST 18 ALT 13 Alkaline Phosphatase 80 Total Protein 7.0 Albumin 3.5 Hep Bs Antibody Post-procedural complaints: none Patient Feedback: Patient satisfied with anesthetic care.
[2023-01-31 10:46] LABS: Alveolar/Arterial O2 Gradient 141.5 mmHg; Fractional Inspired Oxygen 40 %; Oxygen Saturation ABG 96.5 % (95.0-100.0); PCO2 ABG 44.3 mmHg (35.0-45.0); PO2 ABG 92.8 mmHg (80.0-100.0); PO2 FiO2 Ratio Arterial Blood 2.32 %; Total Hemoglobin 8.2 g/dL (12.0-18.0); pH ABG 7.313 (7.350-7.450)
[2023-01-31 10:47] LABS: Site Drawn RIGHT RADIAL
[2023-01-31 10:48] LABS: Device VENTILATOR; Modified Allen's Test Pass
[2023-01-31 10:49] LABS: Arterial Blood Gas PEEP 8 cmH2O; Arterial Blood Gas Pressure Support 5 cmH2O; Arterial Blood Gas Vent Mode SPONTANEOUS
[2023-01-31 10:55] LABS: Triglycerides 74 mg/dL (<150)
--- NOTE | 2023-01-31 10:58 | WPDCNINT ---
Assessment and Plan Assessment and plan (1) Acute hypoxemic respiratory failure: Code(s): J96.01 - Acute respiratory failure with hypoxia Status: Acute Assessment and Plan: Patient was intubated due to hypoxia from pulmonary edema and sedation for dialysis catheter placement I reviewed ABG chest x-ray and vent settings. She was on 8 of PEEP and 40% FiO2 She had received dialysis overnight with 4 L fluid was removed I placed patient on 5/8 PSV SBT done for more than 1 hour. Initially patient kept on going into apnea ventilation but as the sedation wore off patient respiratory rate improved. Her rSBI, ABGI and Vitals were acceptable. Pt patient now awake and following commands. I Will extubate and monitor. NPO for now. May need bipap. She is scheduled for another dialysis session today (2) End stage kidney disease: Code(s): N18.6 - End stage renal disease Status: Chronic Assessment and Plan: She received hemodialysis last night and 4 L fluid was removed Electrolytes reviewed this morning and acceptable Discussed with nephrology and plan to do another hemodialysis session today (3) Pulmonary edema: Code(s): J81.1 - Chronic pulmonary edema Status: Acute Assessment and Plan: See above Plan DVT prophylaxis -Lovenox Stress ulcer prophylaxis -PPI Nutrition - NPO Code Status - Full Code Total Critical Care Time - minutes Due to a high probability of clinically significant, life threatening deterioration, the patient required my highest level of preparedness to intervene emergently and I personally spent this critical care time directly and personally managing the patient. This critical care time included obtaining a history; examining the patient; pulse oximetry; ordering and review of studies; arranging urgent treatment with development of a management plan; evaluation of patient's response to treatment; frequent reassessment; and discussions with other providers. It was exclusive of separately billable procedures and treating other patients and teaching time. Please see Assessment and Plan section and the rest of the note for further information on patient assessment and treatment Director Pharmacovigilance Consult Note Consult date: 02/01/23 Reason for consult: Acute respiratory failure HPI: Jeanette wOens is a 52 year old female with history of end-stage renal disease on hemodialysis,, COPD, diabetes, hypertension was admitted yesterday with chief complaint of shortness of breath and missing hemodialysis. Patient had malfunctioning of her catheter and had missed 1 week of dialysis. She was found to be anemic and was given 1 unit of PRBC. Patient was hypoxic on 4 L nasal cannula. Patient was taken to operating room and left-sided temporary dialysis catheter was placed. For the procedure due to hypoxia patient was intubated and later postprocedure she was admitted to ICU intubated for further evaluation management. This morning when I saw the patient she was on mechanical ventilation. Despite low sedation patient was arousable and follows commands. She noted her head no to shortness of breath or pain. History obtained from chart and Physician sign out. Pt intubated and sedated and unable to provide detailed history. Review of Systems Review of Systems: ROS unobtainable: Yes unobtainable due to endotracheal tube PMFSH Past Medical History Medical History (Updated 01/31/23 @ 17:45 by Solitario Suero MD) Cardiomegaly COPD (chronic obstructive pulmonary disease) Diabetes type 2, controlled End stage kidney disease Hypertension Social History Social History Social History: Patient previously lived at home independently and recently was hospitalized at [facility]. She was discharged to [facility] a few weeks ago. Smoking status: Never smoker Alcohol intake: former Substance use: never Lack of Transportation: No
[2023-01-31] MEDS: ENOXAPARIN 30 MG/0.3 ML SYRINGE SUB-Q (12:30)
--- NOTE | 2023-01-31 13:16 | PM.PNGS ---
Progress Note: A&P Assessment and Plan (1) Acute hypoxemic respiratory failure: Code(s): J96.01 - Acute respiratory failure with hypoxia Status: Acute Assessment and Plan: Improved since getting hemodialysis yesterday. Has been extubated off the ventilator. Continue management as per Medicine Service And Nephrology. (2) Hemodialysis catheter malfunction: Code(s): T82.41XA - Breakdown (mechanical) of vascular dialysis catheter, initial encounter Status: Acute Assessment and Plan: The right internal jugular vein Perma catheter is nonfunctional at this time. It is not infected. We will plan on removing it next week and placement of a new Perma catheter on Saturday. (3) End stage kidney disease: Code(s): N18.6 - End stage renal disease Status: Chronic Assessment and Plan: Patient needs new tunneled hemodialysis catheter for access to continue outpatient dialysis treatments. Medical optimization over the weekend then plans are to place a new catheter Saturday. Subjective Subjective Date/Time Seen: 01/31/23 13:16 Interval history: Patient had emergent placement of a left subclavian vein temporary non tunneled Julio hemodialysis catheter last night. She remained intubated in the ICU overnight due to continued respiratory distress. She did get hemodialysis last evening and this morning she was extubated. She is tolerating extubation and appears much better. Exam Skin: Other: Left upper anterior chest quit hemodialysis catheter site dressed and dry. No redness or bleeding. The right-sided right internal jugular vein tunneled hemodialysis catheter site is clean and dry as well. This catheter is nonfunctioning at this time. Objective Data Vital Signs Vital Signs: Vital Signs - 24 hr 01/30/23 14:21 01/30/23 16:00 01/30/23 17:00 Temperature 36.4 C 36.4 C L Pulse Rate 90 88 96 Respiratory Rate 18 22 H Blood Pressure 141/79 H 112/87 Pulse Oximetry 100 98 Oxygen Delivery Nasal Cannula Oxygen Flow Rate 4 Fraction of Inspired Oxygen 01/30/23 18:04 01/30/23 19:41 01/30/23 19:58 Temperature Pulse Rate 91 79 74 Respiratory Rate 22 H 22 H Blood Pressure 110/52 L Pulse Oximetry 100 100 Oxygen Delivery Nasal Cannula Mechanical Ventilation Oxygen Flow Rate 3 Fraction of Inspired Oxygen 75 01/30/23 20:38 01/30/23 20:43 01/30/23 20:50 Temperature Pulse Rate 76 77 Respiratory Rate 18 Blood Pressure 141/70 H 147/75 H Pulse Oximetry 100 Oxygen Delivery Oxygen Flow Rate Fraction of Inspired Oxygen 40 01/30/23 21:00 01/30/23 21:15 01/30/23 21:30 Temperature Pulse Rate 72 70 65 Respiratory Rate Blood Pressure 141/79 H 132/64 140/80 Pulse Oximetry Oxygen Delivery Oxygen Flow Rate Fraction of Inspired Oxygen 01/30/23 22:37 01/30/23 21:45 01/30/23 22:00 Temperature Pulse Rate 78 72 70 Respiratory Rate Blood Pressure 143/74 H 140/77 Pulse Oximetry 97 Oxygen Delivery Mechanical Ventilation Oxygen Flow Rate Fraction of Inspired Oxygen 40 01/30/23 22:15 01/30/23 22:30 01/30/23 22:45 Temperature Pulse Rate 74 82 65 Respiratory Rate Blood Pressure 141/80 H 143/81 H 146/71 H Pulse Oximetry Oxygen Delivery Oxygen Flow Rate Fraction of Inspired Oxygen 01/30/23 23:00 01/30/23 23:15 01/30/23 23:30 Temperature Pulse Rate 68 65 66 Respiratory Rate Blood Pressure 142/119 H 127/63 126/64 Pulse Oximetry Oxygen Delivery Oxygen Flow Rate Fraction of Inspired Oxygen 01/30/23 23:45 01/31/23 01:45 01/31/23 04:51 Temperature Pulse Rate 65 75 74 Respiratory Rate Blood Pressure 130/69 Pulse Oximetry 96 96 Oxygen Delivery Mechanical Ventilation Mechanical Ventilation Oxygen Flow Rate Fraction of Inspired Oxygen 40 40 01/30/23 20:00 01/30/23 22:00 01/31/23 00:00 Temperature 36.6 C 36.5
--- NOTE | 2023-01-31 15:30 | PM.PNNEP ---
Progress Note: A&P Assessment and Plan (1) LEMUEL (acute kidney injury): Code(s): N17.9 - Acute kidney failure, unspecified Status: Acute Assessment and Plan: recently started on hemodialysis due to ATN secondary to septic shock (during hospitalization at [facility]) baseline creatinine ~ 1.6 - 2.0mg/dl currently dialysis dependent DUF yesterday HD today follow electrolytes, volume status, and clearance (2) Hemodialysis catheter malfunction: Code(s): T82.41XA - Breakdown (mechanical) of vascular dialysis catheter, initial encounter Status: Acute Assessment and Plan: right tunneled HD catheter non-functional for the last week if not longer hence, in adequate dialysis/fluid removal in this time frame left subclavian temporary HD catheter in place for dialysis plan new tunneled HD catheter next week (3) Acute hypoxemic respiratory failure: Code(s): J96.01 - Acute respiratory failure with hypoxia Status: Acute Assessment and Plan: resolving -- extubated due to volume overload/pulmonary edema +/- anemia fluid removal with HD today complicated by known history of COPD continue supportive therapy (4) Anemia: Qualifiers: Anemia type: unspecified type Qualified Code(s): D64.9 - Anemia, unspecified Code(s): D64.9 - Anemia, unspecified Status: Acute Assessment and Plan: as noted on admission presumable related to LEMUEL/dialysis dependence PRBC transfusion per protocol Epogen with HD follow trend of H/H (5) Hypertension: Code(s): I10 - Essential (primary) hypertension Status: Chronic Assessment and Plan: reasonable control follow trend of hemodynamics (6) Diabetes: Code(s): E11.9 - Type 2 diabetes mellitus without complications Status: Acute Assessment and Plan: follow accu-checks glycemic control per hospitalists Will continue to follow. Subjective Date/time seen: 01/31/23 15:30 Interval history: Follow-up for acute kidney injury/acute renal failure on hemodialysis. S/P temporary hemodialysis catheter late yesterday afternoon/evening; admitted to ICU post procedure due to being intubated and on mechanical ventilation; tolerated dry ultrafiltration session yesterday evening with 4L fluid removal; extubated earlier today and tolerating dialysis treatment at this time (seen on HD at 3:20PM). Exam Narrative: General: middle aged female in NAD Heart: normal S1 and S2; no rub Lungs: coarse breath sounds; left subclavian temporary HD catheter; tunneled HD catheter on RIJ Abdomen: soft, nontender, nondistended, positive bowel sounds Extremities: no cyanosis or clubbing; trace edema Skin: warm and dry Objective Data Vital Signs Vital Signs: Vital Signs Temp Pulse Resp BP Pulse Ox O2 Del Method O2 Flow Rate 01/31/23 15:15 90 150/74 H 01/31/23 15:09 91 153/86 H 01/31/23 15:00 89 14 145/76 H 01/31/23 14:00 79 13 133/72 97 01/31/23 14:00 79 01/31/23 12:00 95 Nasal Cannula 5 01/31/23 12:00 93 01/31/23 12:36 89 15 01/31/23 12:00 97.9 F 92 19 134/67 95 01/31/23 11:00 91 93 01/31/23 10:00 76 20 148/81 H 95 01/31/23 10:00 84 94 Mechanical Ventilation 01/31/23 10:00 78 01/31/23 08:00 97 Mechanical Ventilation 01/31/23 08:00 69 01/31/23 08:20 68 20 01/31/23 08:00 97.8 F 71 20 140/76 97 01/31/23 08:00 72 20 01/31/23 08:00 01/31/23 07:10 72 94 Mechanical Ventilation 01/30/23 21:00 86 20 01/31/23 06:00 71 20 133/74 98 01/31/23 04:00 01/31/23 00:00 01/31/23 06:00 71 01/31/23 04:00 Mechanical Ventilation 01/31/23 00:00 Mechanical Ventilation 01/30/23 20:00 Mechanical Ventilation 01/31/23 04:00 74 01/31/23 02:00
--- NOTE | 2023-01-31 15:30 | P.PNNP_ITS ---
Progress Note: A&P Assessment and Plan (1) LEMUEL (acute kidney injury): Code(s): N17.9 - Acute kidney failure, unspecified Status: Acute Assessment and Plan: * recently started on hemodialysis due to ATN secondary to septic shock (during hospitalization at [facility]) * baseline creatinine ~ 1.6 - 2.0mg/dl * currently dialysis dependent * DUF yesterday * HD today * follow electrolytes, volume status, and clearance (2) Hemodialysis catheter malfunction: Code(s): T82.41XA - Breakdown (mechanical) of vascular dialysis catheter, initial encounter Status: Acute Assessment and Plan: * right tunneled HD catheter non-functional for the last week if not longer * hence, in adequate dialysis/fluid removal in this time frame * left subclavian temporary HD catheter in place for dialysis * plan new tunneled HD catheter next week (3) Acute hypoxemic respiratory failure: Code(s): J96.01 - Acute respiratory failure with hypoxia Status: Acute Assessment and Plan: * resolving -- extubated * due to volume overload/pulmonary edema +/- anemia * fluid removal with HD today * complicated by known history of COPD * continue supportive therapy (4) Anemia: Qualifiers: Anemia type: unspecified type Qualified Code(s): D64.9 - Anemia, unspecified Code(s): D64.9 - Anemia, unspecified Status: Acute Assessment and Plan: * as noted on admission * presumable related to LEMUEL/dialysis dependence * PRBC transfusion per protocol * Epogen with HD * follow trend of H/H (5) Hypertension: Code(s): I10 - Essential (primary) hypertension Status: Chronic Assessment and Plan: * reasonable control * follow trend of hemodynamics (6) Diabetes: Code(s): E11.9 - Type 2 diabetes mellitus without complications Status: Acute Assessment and Plan: * follow accu-checks * glycemic control per hospitalists Will continue to follow. Subjective Date/time seen: 01/31/23 15:30 Interval history: Follow-up for acute kidney injury/acute renal failure on hemodialysis. S/P temporary hemodialysis catheter late yesterday afternoon/evening; admitted to ICU post procedure due to being intubated and on mechanical ventilation; tolerated dry ultrafiltration session yesterday evening with 4L fluid removal; extubated earlier today and tolerating dialysis treatment at this time (seen on HD at 3:20PM). Exam Narrative: General: middle aged female in NAD Heart: normal S1 and S2; no rub Lungs: coarse breath sounds; left subclavian temporary HD catheter; tunneled HD catheter on RIJ Abdomen: soft, nontender, nondistended, positive bowel sounds Extremities: no cyanosis or clubbing; trace edema Skin: warm and dry Objective Data Vital Signs Vital Signs: Vital Signs Temp Pulse Resp BP Pulse Ox O2 Del Method O2 Flow Rate 01/31/23 15:15 90 150/74 H 01/31/23 15:09 91 153/86 H 01/31/23 15:00 89 14 145/76 H 01/31/23 14:00 79 13 133/72 97 01/31/23 14:00 79 01/31/23 12:00 95 Nasal Cannula 5 01/31/23 12:00 93 01/31/23 12:36 89 15 01/31/23 12:00 97.9 F 92 19 134/67 95 01/31/23 11:00 91 93 01/31/23 10:00 76 20 148/81 H 95 10
--- NOTE | 2023-01-31 17:08 | PM.IMPN ---
Progress Note: A&P Assessment and Plan (1) Acute hypoxemic respiratory failure: Code(s): J96.01 - Acute respiratory failure with hypoxia Status: Acute Assessment and Plan: Patient was intubated due to hypoxia from pulmonary edema and sedation for dialysis catheter placement on 01/30. She had DUF overnight and HD today. She was placed on SBT abd did well. She was able to be extubated earlier today. -continue HFNC and wean as able -appreciate beauty operator input. (2) End stage kidney disease: Code(s): N18.6 - End stage renal disease Status: Chronic Assessment and Plan: Her baseline Cr 1.6-2.0. She developed ATN secondary to septic shock requiring HD when at [facility]. She had DUF yesterday HD today and having trouble with the line again. Appreciated nephrology input (3) Altered mental status: Code(s): R41.82 - Altered mental status, unspecified Status: Acute Assessment and Plan: Patietn confused today. Possibly related to narcotics and poor metabolism. She is improved overall and no focal findings. Will monitor for now. Check B12, TSH. Further evalaution if still confused (4) Hemodialysis catheter malfunction: Code(s): T82.41XA - Breakdown (mechanical) of vascular dialysis catheter, initial encounter Status: Acute Assessment and Plan: Her right tunneled catheter is nonfunctioning x 1 week before admission. She had missed HD resulting in the fluid overload. Left subclavian catheter placed but now having trouble with that line. Will try to continue to use this catheter until we can get another tunneled catheter. (5) Pulmonary edema: Code(s): J81.1 - Chronic pulmonary edema Status: Acute Assessment and Plan: Related to being off HD. See above (6) Anemia: Qualifiers: Anemia type: unspecified type Qualified Code(s): D64.9 - Anemia, unspecified Code(s): D64.9 - Anemia, unspecified Status: Acute Assessment and Plan: Hgb 6.4 on admission. Probably more chronic from her ESRD. bruising noted. She is not on anticoagulation. Transfused 1U PRBC. Hgb better at 7.2. Follow and transfuse as needed. (7) Cellulitis of right leg without foot: Code(s): L03.115 - Cellulitis of right lower limb Status: Acute Assessment and Plan: Rash noted with blistering to the right lower leg. No cultures obtained. Continue Cefazolin and Vanco. (8) Candidiasis of skin: Code(s): B37.2 - Candidiasis of skin and nail Status: Acute Assessment and Plan: Continue current wound care with anti-fungal (9) Diabetes: Code(s): E11.9 - Type 2 diabetes mellitus without complications Status: Acute Assessment and Plan: The patient's blood glucose was reviewed on 01/31 Glucose remains well controlled. AccuCheks covering with sliding scale. Hypoglycemia protocol to be available as needed. Continue to monitor (10) Hypertension: Code(s): I10 - Essential (primary) hypertension Status: Chronic Assessment and Plan: Patient's blood pressure was reviewed on 01/31 Blood pressure noted. Will continue to monitor Plan DVT prophylaxis -Lovenox Stress ulcer prophylaxis -PPI Nutrition - NPO Code Status - Full Code Subjective Date/time seen: 01/31/23 17:08 Interval history: 52yo female with ESRD, COPD, DM and HTN here for shortness of breath and found to be in acute respiratory failure. Patient able to be extubated today. She is somnolent but awake. She is confused and repetitive. She is unable to provide accurate hx. Patient had DUF yesterday without problems. HD tech in the room stated having problems with current line and only able to take 1.5L off. Review of Systems Review of Systems: ROS unobtainable: Yes unobtainable due to mental status Exam Narrative: AF 97.9 150/74 100 18 99% Gen - mildly tachyp
[2023-01-31 18:14] LABS: Alveolar/Arterial O2 Gradient 454.1 mmHg; Base Excess ABG -1.7 mEq/l (+/-2.0); Fractional Inspired Oxygen 80 %; HCO3 ABG 23.5 mEq/l (22.0-26.0); Oxygen Content ABG 10.9 %vol (16.0-22.0); Oxygen Saturation ABG 94.2 % (95.0-100.0); Oxyhemoglobin 91.2 % THb (90.0-100.0); PCO2 ABG 41.5 mmHg (35.0-45.0); PO2 ABG 72.7 mmHg (80.0-100.0); PO2 FiO2 Ratio Arterial Blood 0.91 %; Total Hemoglobin 8.4 g/dL (12.0-18.0)
[2023-01-31 18:16] LABS: Device HIGH FLOW NASAL CANN; Site Drawn RIGHT BRACHIAL
[2023-01-31 18:44] LABS: Glucose Point of Care 69 mg/dl (65-105)
--- NOTE | 2023-01-31 18:51 | PC.NURSE ---
Dr Hanson updated on chest Xray and ABG results. Dr. Puente also notified of results per Dr. Hanson request.
[2023-01-31] MEDS: ceFAZolin 1 GM/NS 50 ML 1 GM/50 ML BAG IVPB (20:25)
[2023-01-31] MEDS: BUMETANIDE INJ 1 MG/4 ML VIAL 3 MG IV PUSH (20:25)
[2023-02-01] VITALS (36 sets, daily range): BP systolic 130–166; BP diastolic 62–97; PULSE 77–97; RESP 8–17; TEMP 36.4–36.9; O2SAT 93–100
--- NOTE | 2023-02-01 02:19 | PCRCNOTE ---
Pt did not want to wear a bipap mask last night (01/31). Pt resting comfortably on high flow therapy 40L and 50%
[2023-02-01 04:22] LABS: Hemoglobin 7.4 g/dL (12.0-15.0); Mean Corpuscular HGB Conc 29.6 g/dl (32-36); Mean Corpuscular Hemoglobin 30.5 pg (26-34); Mean Corpuscular Volume 102.9 fl (80-100); Mean Platelet Volume 9.5 fl (7.4-10.4); Platelet Count Result 261 k/mm3 (150-375); Red Blood Count 2.43 M/mm3 (4.2-5.4); Red Cell Distribution Width 17.8 % (11.5-14.5); White Blood Count 5.8 K/mm3 (4.5-10.0)
[2023-02-01 05:24] LABS: Alanine Aminotransferase 8 U/L (6-35); Albumin Level 3.4 g/dL (3.5-5.1); Alkaline Phosphatase 78 U/L (38-126); Anion Gap 13 mmol/L (8-16); Aspartate Amino Transferase 17 U/L (14-36); Bilirubin,Total 0.8 mg/dL (0.2-1.3); Blood Urea Nitrogen 43 mg/dL (7-17); Calcium 8.8 mg/dL (8.4-10.2); Carbon Dioxide 22 mmol/L (22-30); Chloride 104 mmol/L (98-107); Estimated CRCL calculation 13 ml/min; Estimated Glomerular Filt Rate 9; Glucose 74 mg/dL (65-110); Potassium 4.4 mmol/L (3.4-5.0); Sodium 139 mmol/L (137-145)
[2023-02-01 05:51] LABS: Hemoglobin A1C 5.3 % (<5.7)
[2023-02-01 06:06] LABS: Glucose Point of Care 85 mg/dl (65-105)
[2023-02-01 06:06] LABS: Glucose Point of Care 79 mg/dl (65-105)
[2023-02-01 07:42] LABS: Folic Acid 6.5 ng/mL (2.76->20)
[2023-02-01] MEDS: ALBUTEROL SULFATE NEB 2.5 MG/3 ML INH INHALATION (08:52)
[2023-02-01] MEDS: IPRATROPIUM BR 0.02% INH SOLN 0.5 MG/2.5 ML VIAL INHALATION (08:53)
[2023-02-01] MEDS: ENOXAPARIN 30 MG/0.3 ML SYRINGE SUB-Q (08:55)
[2023-02-01] MEDS: FUROSEMIDE INJ 100 MG/10 ML VIAL 80 MG IV PUSH ×2 (08:55→18:00)
[2023-02-01] MEDS: PANTOPRAZOLE SODIUM IV 40 MG VIAL IV PUSH (08:56)
[2023-02-01 09:03] LABS: Glucose Point of Care 83 mg/dl (65-105)
--- NOTE | 2023-02-01 09:14 | WPDINTPN ---
Progress Note: A&P Assessment and Plan (1) Acute hypoxemic respiratory failure: Code(s): J96.01 - Acute respiratory failure with hypoxia Status: Acute Assessment and Plan: Patient was intubated due to hypoxia from pulmonary edema and sedation for dialysis catheter placement She received dialysis overnight and 4 L fluid was removed 01/31 extubated after a successful weaning trial Yesterday only 1.5 L fluid was removed due to issue with the catheter. Nephrology was notified about the issue with the catheter by the dialysis nurse. Patient was on nasal cannula later after dialysis became more hypoxic and was placed on Airvo. Airvo has been weaned down to 50% and fluids at 40 L. I ordered a BiPAP but patient as per reports refused to wear it. She is not in any respiratory distress although she is hypoxic. I will order bronchodilators Dialysis is again scheduled for this morning to remove additional fluids. Patient produces some monitor urine and I will give Lasix Chest x-ray done01/31 consistent with pulmonary edema. She is afebrile and has normal WBC She was negative for influenza and COVID PCR (2) End stage kidney disease: Code(s): N18.6 - End stage renal disease Status: Chronic Assessment and Plan: 01/30 She received hemodialysis and 4 L fluid was removed 01/31 only 1.5 L fluid was removed due to issue with the catheter. Nephrology was notified about the issue with the catheter by the dialysis nurse. Electrolytes reviewed this morning and acceptable Plan to do another hemodialysis session today (3) Pulmonary edema: Code(s): J81.1 - Chronic pulmonary edema Status: Acute Assessment and Plan: See above Check echo (4) Hypertension: Code(s): I10 - Essential (primary) hypertension Status: Chronic Assessment and Plan: Blood pressure controlled at this time. Monitor and treat accordingly. Coreg is on hold Plan DVT prophylaxis -Lovenox Stress ulcer prophylaxis -PPI Nutrition -clear liquid diet Code Status - Full Code Total Critical Care Time - 30 minutes Due to a high probability of clinically significant, life threatening deterioration, the patient required my highest level of preparedness to intervene emergently and I personally spent this critical care time directly and personally managing the patient. This critical care time included obtaining a history; examining the patient; pulse oximetry; ordering and review of studies; arranging urgent treatment with development of a management plan; evaluation of patient's response to treatment; frequent reassessment; and discussions with other providers. It was exclusive of separately billable procedures and treating other patients and teaching time. Please see Assessment and Plan section and the rest of the note for further information on patient assessment and treatment Subjective Date/time seen: 02/01/23 Overnight events reviewed. Afebrile Patient was extubated yesterday after a successful weaning trial but later after dialysis patient became more hypoxic and was placed on Airvo. She refused to wear BiPAP overnight as per reports Hemodialysis was limited due to issues with dialysis catheter and only 1.5 L fluid was removed. Machine Brusher was notified by the dialysis nurse. This morning patient is drowsy but easily arousable she nodes her head no to pain or shortness of breath. She does have moist cough. Patient unable to provide detailed history review of systems Sinus rhythm on the monitor. Other Vitals acceptable Interval history: 52yo female with ESRD, COPD, DM and HTN here for shortness of breath and found to be in acute respiratory failure. Extubated 01/31 Exam Narrative: General: Pt is awake but drowsy. No distress Lungs/Chest: Trachea central Coarse BS B/L, by lateral occasional wheezing. Bibasilar crackles left subclavian temporary dialysis catheter and right side tunneled dialysis catheter Ca
--- NOTE | 2023-02-01 10:06 | P.PNNP_ITS ---
Progress Note: A&P Assessment and Plan (1) LEMUEL (acute kidney injury): Code(s): N17.9 - Acute kidney failure, unspecified Status: Acute Assessment and Plan: * recently started on hemodialysis due to ATN secondary to septic shock (during hospitalization at [facility]) * baseline creatinine ~ 1.6 - 2.0mg/dl * currently dialysis dependent * DUF on admission * HD yesterday but poor treatment * DUF again today and plan HD tomorrow (normally T/T/S schedule) * follow electrolytes, volume status, and clearance (2) Hemodialysis catheter malfunction: Code(s): T82.41XA - Breakdown (mechanical) of vascular dialysis catheter, initial encounter Status: Acute Assessment and Plan: * right tunneled HD catheter non-functional for the last week if not longer * hence, in adequate dialysis/fluid removal in this time frame * left subclavian temporary HD catheter in place for dialysis -- poor function noted as well * discussed with Dr. Painting -- place guidewire exchange of temporary HD catheter this afternoon * plan new tunneled HD catheter next week (3) Acute hypoxemic respiratory failure: Code(s): J96.01 - Acute respiratory failure with hypoxia Status: Acute Assessment and Plan: * resolving -- extubated * due to volume overload/pulmonary edema +/- anemia * fluid removal with DUF today; plan more fluid removal with HD tomorrow * complicated by known history of COPD * continue supportive therapy (4) Anemia: Qualifiers: Anemia type: unspecified type Qualified Code(s): D64.9 - Anemia, uns pecified Code(s): D64.9 - Anemia, unspecified Status: Acute Assessment and Plan: * as noted on admission * presumable related to LEMUEL/dialysis dependence * PRBC transfusion per protocol * Epogen with HD * follow trend of H/H (5) Hypertension: Code(s): I10 - Essential (primary) hypertension Status: Chronic Assessment and Plan: * reasonable control * follow trend of hemodynamics (6) Diabetes: Code(s): E11.9 - Type 2 diabetes mellitus without complications Status: Acute Assessment and Plan: * follow accu-checks * glycemic control per hospitalists Will continue to follow. Subjective Date/time seen: 02/01/23 10:06 Interval history: Follow-up for acute kidney injury/acute renal failure on hemodialysis. Dialysis treatment yesterday was suboptimal due to temporary HD catheter dysfunction -- treatment ended early and limited fluid removal noted; receiving DUF treatment currently (seen on DUF at 9:55AM) and able to achieve fluid rem oval but blood flows are quite low and significant alarms noted during DUF treatment; patient somewhat frustrated by machine alarms as well; no apparent respiratory distress noted but continues to be hypoxic with CXR findings noted. Exam Narrative: General: middle aged female in NAD Heart: normal S1 and S2; no rub Lungs: coarse breath sounds with some bibasilar crackles; left subclavian temporary HD catheter; tunneled HD catheter on right Abdomen: soft, nontender, nondistended, positive bowel sounds Extremities: no cyanosis or clubbing; trace edema Skin: warm and intact Objective Data Vital Signs Vital Signs: Vital Signs Temp Pulse Resp BP Pulse Ox O2 Del Method O2 Flow Rate 02/01/23 10:00 86 148/69 H 02/01/23 09:45
--- NOTE | 2023-02-01 10:06 | PM.PNNEP ---
Progress Note: A&P Assessment and Plan (1) LEMUEL (acute kidney injury): Code(s): N17.9 - Acute kidney failure, unspecified Status: Acute Assessment and Plan: recently started on hemodialysis due to ATN secondary to septic shock (during hospitalization at [facility]) baseline creatinine ~ 1.6 - 2.0mg/dl currently dialysis dependent DUF on admission HD yesterday but poor treatment DUF again today and plan HD tomorrow (normally T/T/S schedule) follow electrolytes, volume status, and clearance (2) Hemodialysis catheter malfunction: Code(s): T82.41XA - Breakdown (mechanical) of vascular dialysis catheter, initial encounter Status: Acute Assessment and Plan: right tunneled HD catheter non-functional for the last week if not longer hence, in adequate dialysis/fluid removal in this time frame left subclavian temporary HD catheter in place for dialysis -- poor function noted as well discussed with Dr. Painting -- place guidewire exchange of temporary HD catheter this afternoon plan new tunneled HD catheter next week (3) Acute hypoxemic respiratory failure: Code(s): J96.01 - Acute respiratory failure with hypoxia Status: Acute Assessment and Plan: resolving -- extubated due to volume overload/pulmonary edema +/- anemia fluid removal with DUF today; plan more fluid removal with HD tomorrow complicated by known history of COPD continue supportive therapy (4) Anemia: Qualifiers: Anemia type: unspecified type Qualified Code(s): D64.9 - Anemia, unspecified Code(s): D64.9 - Anemia, unspecified Status: Acute Assessment and Plan: as noted on admission presumable related to LEMUEL/dialysis dependence PRBC transfusion per protocol Epogen with HD follow trend of H/H (5) Hypertension: Code(s): I10 - Essential (primary) hypertension Status: Chronic Assessment and Plan: reasonable control follow trend of hemodynamics (6) Diabetes: Code(s): E11.9 - Type 2 diabetes mellitus without complications Status: Acute Assessment and Plan: follow accu-checks glycemic control per hospitalists Will continue to follow. Subjective Date/time seen: 02/01/23 10:06 Interval history: Follow-up for acute kidney injury/acute renal failure on hemodialysis. Dialysis treatment yesterday was suboptimal due to temporary HD catheter dysfunction -- treatment ended early and limited fluid removal noted; receiving DUF treatment currently (seen on DUF at 9:55AM) and able to achieve fluid removal but blood flows are quite low and significant alarms noted during DUF treatment; patient somewhat frustrated by machine alarms as well; no apparent respiratory distress noted but continues to be hypoxic with CXR findings noted. Exam Narrative: General: middle aged female in NAD Heart: normal S1 and S2; no rub Lungs: coarse breath sounds with some bibasilar crackles; left subclavian temporary HD catheter; tunneled HD catheter on right Abdomen: soft, nontender, nondistended, positive bowel sounds Extremities: no cyanosis or clubbing; trace edema Skin: warm and intact Objective Data Vital Signs Vital Signs: Vital Signs Temp Pulse Resp BP Pulse Ox O2 Del Method O2 Flow Rate 02/01/23 10:00 86 148/69 H 02/01/23 09:45 83 148/77 H 02/01/23 09:42 82 151/75 H 02/01/23 09:42 40 02/01/23 09:30 97.6 F 87 12 147/77 H 98 02/01/23 09:18 88 10 L 02/01/23 08:00 97.6 F 87 10 L 147/77 H 98 02/01/23 08:00 98 High Flow Therapy with Na 40 02/01/23 08:00 80 02/01/23 08:55 82 10 L 02/01/23 06:00 79 12 142/84 H 100 02/01/23 06:00 82 02/01/23 02:30 84 98 High Flow Therapy with Na 40 02/01/23 04:00 97.7 F 77 10 L 141/75 H 97 02/01/23 04:00 84 11 L 98 High Flow Therapy with Na 40 02/01/23 04:00
[2023-02-01] MEDS: EPOETIN ALFA-EPBX 10,000 UNITS/ML VIAL 10000 UNITS IV PUSH (11:09)
--- NOTE | 2023-02-01 11:12 | PCFNICU ---
ICU Rounding Note: Pt current nutrition is Clear liquids. Last recorded weight is 101.3 kg, up from 99.3 kg on admit Bowel Motility:Last BM reported 01/30 Labs Reviewed:Cr 5.2, BUN 43, Hct 25.0, Hgb 7.4 Meds Noted:Lasix, Protonix Skin: Bilateral Groin-maceration. Additional Notes: Patient has advanced to a clear liquid diet. Plans for dialysis today. When diet order advances recommend a renal dialysis diet. Agree with diet orders at this time. Following daily in ICU rounds. Monitoring diet advancement, labs, weights, stool patterns, meds, plan of care every 3 days.
[2023-02-01] MEDS: HEPARIN SODIUM 1,000 UNITS/ML VIAL 1000 UNITS IV PUSH (12:58)
[2023-02-01 13:01] LABS: Glucose Point of Care 80 mg/dl (65-105)
--- NOTE | 2023-02-01 14:42 | PM.IMPN ---
Progress Note: A&P Assessment and Plan (1) Acute hypoxemic respiratory failure: Code(s): J96.01 - Acute respiratory failure with hypoxia Status: Acute Assessment and Plan: Patient was intubated due to hypoxia from pulmonary edema and sedation for dialysis catheter placement on 01/30. She had DUF 01/30 and HD 01/31. She was placed on SBT and did well. She was able to be extubated on 01/31 -continue HFNC and wean as able -appreciate visual basic developer input. (2) End stage kidney disease: Code(s): N18.6 - End stage renal disease Status: Chronic Assessment and Plan: Her baseline Cr 1.6-2.0. She developed ATN secondary to septic shock requiring HD when at [facility]. She had DUF 01/30. HD 01/31 and again today but was having trouble with the line GenSurg changed out the left SC HD line today. Appreciated nephrology and GenSurg input (3) Altered mental status: Code(s): R41.82 - Altered mental status, unspecified Status: Acute Assessment and Plan: Patient confused. Possibly related to no HD, narcotics and poor metabolism. B12 and TSH normal. She is improved overall and no focal findings. Will monitor for now. Further evaluation if still confused. ST to evaluate (4) Hemodialysis catheter malfunction: Code(s): T82.41XA - Breakdown (mechanical) of vascular dialysis catheter, initial encounter Status: Acute Assessment and Plan: Her right tunneled catheter is nonfunctioning x 1 week before admission. She had missed HD resulting in the fluid overload. Left subclavian catheter placed but now having trouble with that line. Line changed out today. Plan for tunneled catheter on Saturday. (5) Pulmonary edema: Code(s): J81.1 - Chronic pulmonary edema Status: Acute Assessment and Plan: Related to being off HD. See above (6) Anemia: Qualifiers: Anemia type: unspecified type Qualified Code(s): D64.9 - Anemia, unspecified Code(s): D64.9 - Anemia, unspecified Status: Acute Assessment and Plan: Hgb 6.4 on admission. Probably more chronic from her ESRD. bruising noted. She is not on anticoagulation. Transfused 1U PRBC. Hgb better in the 7 range and stable. Follow and transfuse as needed. (7) Cellulitis of right leg without foot: Code(s): L03.115 - Cellulitis of right lower limb Status: Acute Assessment and Plan: Rash noted with blistering to the right lower leg. No cultures obtained. Continue Cefazolin and Vanco. (8) Candidiasis of skin: Code(s): B37.2 - Candidiasis of skin and nail Status: Acute Assessment and Plan: Continue current wound care with anti-fungal (9) Diabetes: Code(s): E11.9 - Type 2 diabetes mellitus without complications Status: Acute Assessment and Plan: The patient's blood glucose was reviewed on 02/01 Glucose remains well controlled. AccuCheks covering with sliding scale. Hypoglycemia protocol to be available as needed. Continue to monitor (10) Hypertension: Code(s): I10 - Essential (primary) hypertension Status: Chronic Assessment and Plan: Patient's blood pressure was reviewed on 02/01 Blood pressure more elevated but better now Will continue to monitor Plan DVT prophylaxis -Lovenox Stress ulcer prophylaxis -PPI Nutrition - NPO Code Status - Full Code Subjective Date/time seen: 02/01/23 14:42 Interval history: 52yo female with ESRD, COPD, DM and HTN here for shortness of breath and found to be in acute respiratory failure. Patient able to be extubated today. Patient had HD catheter changed over a wire today. She has HD prior to the exchange and 2.5L removed. She remains on HFNC. She is alert but confused. Family at the bedside and state no hx of confusion. Review of Systems Review of Systems: ROS unobtainable: Yes unobtainable due to mental status Exam
--- NOTE | 2023-02-01 14:57 | PM.PNGS ---
Progress Note: A&P Assessment and Plan (1) Hemodialysis catheter malfunction: Code(s): T82.41XA - Breakdown (mechanical) of vascular dialysis catheter, initial encounter Status: Acute Assessment and Plan: Patient is having problems getting full dialysis via the left subclavian non tunneled Julio hemodialysis catheter. It is felt that putting a longer catheter further into the superior vena cava may solve this problem. We will go ahead and perform exchange of the left subclavian he Julio non tunneled hemodialysis catheter over guidewire at the bedside today. Hopefully this will get her through full treatments of hemodialysis until she can be taken to the operating room early next week to have the nonfunctioning right internal jugular vein tunneled hemodialysis catheter removed and a new tunneled hemodialysis catheter placed. Subjective Subjective Date/Time Seen: 02/01/23 14:57 Interval history: Patient remains extubated in the intensive care unit. Her breathing is better. They were able to remove about 4L of fluid with dialysis 2 days ago and yesterday on removed 1.5 L. today she had another treatment but the catheter was flowing very slowly and it was felt that the flows would not be high enough to perform full hemodialysis over the weekend. X-ray shows the tip of the existing left subclavian Julio catheter to be in the proximal superior vena cava. It was thought that longer catheter may be needed to improve the blood flows if it is deeper in the superior vena cava. She otherwise is very stable. White blood cell count is normal. Hemodynamically stable. Exam Skin: Other: Left upper anterior chest subclavian Julio hemodialysis or site is clean without any hematoma or drainage or bleeding. Objective Data Vital Signs Vital Signs: Vital Signs - 24 hr 01/31/23 15:00 01/31/23 15:09 01/31/23 15:15 Temperature Pulse Rate 89 91 90 Respiratory Rate 14 Blood Pressure 145/76 H 153/86 H 150/74 H Pulse Oximetry Oxygen Delivery Oxygen Flow Rate Fraction of Inspired Oxygen 01/31/23 16:00 01/31/23 16:25 01/31/23 17:55 Temperature Pulse Rate 100 79 Respiratory Rate 18 12 Blood Pressure Pulse Oximetry 88 L 99 99 Oxygen Delivery Nasal Cannula High Flow Therapy with Na High Flow Therapy with Na Oxygen Flow Rate 5 35 35 Fraction of Inspired Oxygen 90 80 01/31/23 16:00 01/31/23 18:00 01/31/23 16:00 Temperature 36.9 C Pulse Rate 102 H 87 102 H Respiratory Rate 14 Blood Pressure 135/65 Pulse Oximetry 88 L Oxygen Delivery Oxygen Flow Rate Fraction of Inspired Oxygen 01/31/23 18:00 01/31/23 15:30 01/31/23 17:15 Temperature Pulse Rate 98 91 98 Respiratory Rate 18 16 Blood Pressure 144/76 H 140/111 H 161/77 H Pulse Oximetry 98 Oxygen Delivery Oxygen Flow Rate Fraction of Inspired Oxygen 01/31/23 15:45 01/31/23 16:00 01/31/23 16:15 Temperature Pulse Rate 98 104 H 103 H Respiratory Rate Blood Pressure 143/76 H 135/65 160/77 H Pulse Oximetry Oxygen Delivery Oxygen Flow Rate Fraction of Inspired Oxygen 01/31/23 16:25 01/31/23 16:30 01/31/23 16:45 Temperature Pulse Rate 97 97 98 Respiratory Rate Blood Pressure 164/106 H 164/106 H 146/78 H Pulse Oximetry Oxygen Delivery Oxygen Flow Rate Fraction of Inspired Oxygen 01/31/23 17:00 01/31/23 17:04 01/31/23 20:00 Temperature Pulse Rate 92 98 64 Respiratory Rate Blood Pressure 162/69 H 131/103 H Pulse Oximetry Oxygen Delivery Oxygen Flow Rate Fraction of Inspired Oxygen 01/31/23 20:00 01/31/23 20:00 01/31/23 20:10 Temperature Pulse Rate 98 64 89 Respiratory Rate 18 12 Blood Pressure 120/85 Pulse Oximetry 98 100 100 Oxygen Delivery High Flow Therapy with Na High Flow Therapy with Na Oxygen Flow Rate 30 35 Fraction of Inspired Oxygen 80 80 01/31/23 21:00 02/01/23 01:45 01/31/23 22:0
--- NOTE | 2023-02-01 15:01 | W.PM.PROC2 ---
Procedure Note - Detailed Date of Procedure 02/01/23 Pre-op Diagnosis esrd, Malfunctioning non tunneled temporary hemodialysis catheter left subclavian vein Post-op Diagnosis Same Procedure Performed exchange of Julio non tunneled hemodialysis catheter over guidewire left subclavian vein. Surgeon Gaudencio Painting MD Anesthesia Local Indications Patient is a 52-year-old female in the intensive care unit due to volume overload after missing several treatments of hemodialysis. She had an emergent placement of a left subclavian vein non tunneled Julio hemodialysis catheter. It functioned well the 1st evening but since that time there has been problems with getting adequate flows through the catheter to perform full hemodialysis treatments. X-ray show tip of the catheter to be in the proximal superior vena cava. It was thought that exchange of the catheter over guidewire to a longer 1 where the tip is further in the superior vena cava may solve this problem. Findings None significant Description of Procedure informed consent was obtained patient was placed supine on the bed in the intensive care unit. The area the left upper anterior chest was then prepped and draped in usual sterile fashion with the existing Julio catheter in place. Time-out was then performed correctly identifying the patient as well as procedure to be performed. I then cut the securing sutures of the existing catheter to the skin. A guidewire was then advanced through the blue port of the existing 16cm non tunneled hemodialysis catheter into the superior vena cava. The existing catheter was backed out over the guidewire. A new 20cm non tunneled Julio hemodialysis catheter was advanced over the guidewire into the left subclavian vein is subsequently down into the superior vena cava. The catheter was secured at the skin level with some 2-0 nylon sutures. The 3 ports of the catheter were then aspirated eric back blood easily and then were flushed with Heparinized saline solution. A sterile dressing was then placed. As this was exchanged over guidewire without a new stick to the subclavian vein and there was no difficulty with change of her guidewire I felt there was no need to obtain a postprocedure chest x-ray. Patient tolerated the procedure well no complications. Estimated blood loss procedure was about 25cc. Patient was left in the intensive care unit in stable condition. The catheter can be used for hemodialysis. Implants 20cm non tunneled Julio hemodialysis catheter Estimated Blood Loss 25 Drains No Packing No Pathology None sent Complications No immediate complications Condition Stable Disposition ICU [facility] Billing Surgery - Charge Forward: Surgery Billing
[2023-02-01] MEDS: ceFAZolin 1 GM/NS 50 ML 1 GM/50 ML BAG IVPB (18:00)
[2023-02-01 18:12] LABS: Glucose Point of Care 130 mg/dl (65-105)
[2023-02-02] VITALS (34 sets, daily range): BP systolic 102–164; BP diastolic 56–89; PULSE 76–104; RESP 12–20; TEMP 31.6–37.1; O2SAT 84–100
--- NOTE | 2023-02-02 | ECHO_ITS ---
Patient Info Name: Jeanette Owens Age: 52 years : 1970 Gender: Female Ht: 63 in Wt: 223 lbs BSA: 2.17 m2 HR: 82 bpm BP: 155 / 76 mmHg Heart Rhythm: Sinus Rhythm Technical Quality: Good Exam Date: 02/02/2023 9:56 AM Exam Location: [facility] Patient Status: Inpatient Admit Date: 01/30/2023 Staff Ordering Physician: Rodrigo Hanson MD Drying Supervisor: Robert Rocha RDCS Attending Provider: Katie Mares MD Exam Type: CA echo doppler color flow Study Info Indications - CHF, ESRD Complete two-dimensional, color flow and Doppler transthoracic echocardiogram is performed. Summary 1. Complete two-dimensional, color flow and Doppler transthoracic echocardiogram is performed. 2. Mild LVH, borderline LV enlargement, normal LV systolic function, ejection fraction about 55%. Diastolic dysfunction is present. Normal RV size and systolic function. Mild left atrial enlargement. Normal mitral valve structure, mild MR. No aortic stenosis or regurgitation. Trace TR. Unable to assess RVSP due to inadequate TR jet. Left Ventricle Left ventricular chamber dimension is mildly enlarged. Left ventricular systolic function is normal, estimated at 50-55%. There is mildly increased left ventricular wall thickness. The left ventricular diastolic function is abnormal. Left Atria Left atrial chamber dimension is mildly enlarged. Right Atria Right atrial chamber dimension is normal. Aortic Valve The aortic valve is normal. There is no aortic valve stenosis. Pulmonic Valve The pulmonic valve is not well visualized. Mitral Valve The mitral valve has normal leaflets. There is mild mitral valve regurgitation. Tricuspid Valve The tricuspid valve leaflets are normal. There is trace tricuspid valve regurgitation. Pericardium/Pleural The pericardium appears epicardial fat pad. Aorta The aortic root size at the sinus of Valsalva is normal. Left Ventricular Outflow Tract Name Value Normal LVOT 2D LVOT Diameter 2.3 cm LVOT Doppler LVOT Peak Gradient 3 mmHg LVOT Mean Gradient 2 mmHg LVOT VTI 22 cm LVOT VTI/AV VTI Ratio 0.8 LVOT Stroke Volume 91 ml LVOT CO 7.1 l/min LVOT CI 3.3 l/min/m2 Pulmonic Valve Name Value Normal RVOT Doppler RVOT Peak Gradient 3 mmHg PV Doppler PV Peak Gradient 3 mmHg Mitral Valve Name Value Normal MV Regurgitation Doppler MR Peak Gradient 119 m
[2023-02-02 00:08] LABS: Glucose Point of Care 85 mg/dl (65-105)
[2023-02-02 05:12] LABS: Hematocrit 24.4 % (37.0-47.0); Hemoglobin 7.4 g/dL (12.0-15.0); Mean Corpuscular HGB Conc 30.3 g/dl (32-36); Mean Corpuscular Hemoglobin 30.5 pg (26-34); Mean Corpuscular Volume 100.4 fl (80-100); Mean Platelet Volume 9.4 fl (7.4-10.4); Platelet Count Result 244 k/mm3 (150-375); Red Blood Count 2.43 M/mm3 (4.2-5.4); Red Cell Distribution Width 17.6 % (11.5-14.5); White Blood Count 5.3 K/mm3 (4.5-10.0)
[2023-02-02 05:21] LABS: Alanine Aminotransferase 7 U/L (6-35); Albumin Level 3.3 g/dL (3.5-5.1); Alkaline Phosphatase 79 U/L (38-126); Anion Gap 8 mmol/L (8-16); Aspartate Amino Transferase 16 U/L (14-36); Bilirubin,Total 0.8 mg/dL (0.2-1.3); Blood Urea Nitrogen 42 mg/dL (7-17); Calcium 8.8 mg/dL (8.4-10.2); Carbon Dioxide 27 mmol/L (22-30); Chloride 105 mmol/L (98-107); Estimated CRCL calculation 11 ml/min; Estimated Glomerular Filt Rate 7; Glucose 89 mg/dL (65-110); Magnesium 1.7 mg/dL (1.6-2.3); Potassium 3.7 mmol/L (3.4-5.0); Sodium 140 mmol/L (137-145)
--- NOTE | 2023-02-02 08:42 | WPDINTPN ---
Progress Note: A&P Assessment and Plan (1) Acute hypoxemic respiratory failure: Code(s): J96.01 - Acute respiratory failure with hypoxia Status: Acute Assessment and Plan: Patient was intubated due to hypoxia from pulmonary edema and sedation for dialysis catheter placement She received dialysis overnight and 4 L fluid was removed 01/31 extubated after a successful weaning trial 01/31 only 1.5 L fluid was removed due to issue with the catheter. Nephrology was notified about the issue with the catheter by the dialysis nurse. Patient was on nasal cannula later after dialysis became more hypoxic and was placed on Airvo. Airvo was weaned down to 50% and fluids at 40 L. I ordered a BiPAP but patient as per reports refused to wear it. She is not in any respiratory distress although she is hypoxic. 02/01 patient received another session of dialysis and 2.5 L fluid was removed. HD catheter was exchanged by surgery Plan for hemodialysis again today to remove additional fluid Currently on BiPAP 40% FiO2 saturating 100%. Will transition to Airvo during the day continue p.r.n. bronchodilators Dialysis is again scheduled for this morning to remove additional fluids. Patient produces some urine and will continue diuretics Chest x-ray reviewed and is consistent with pulmonary edema. She is afebrile and has normal WBC She was negative for influenza and COVID PCR (2) End stage kidney disease: Code(s): N18.6 - End stage renal disease Status: Chronic Assessment and Plan: 01/30 She received hemodialysis and 4 L fluid was removed 01/31 only 1.5 L fluid was removed due to issue with the catheter. Nephrology was notified about the issue with the catheter by the dialysis nurse. 02/01 patient received hemodialysis 2 L fluid was removed Electrolytes reviewed this morning and acceptable Plan to do another hemodialysis session today (3) Pulmonary edema: Code(s): J81.1 - Chronic pulmonary edema Status: Acute Assessment and Plan: See above Pending echo (4) Hypertension: Code(s): I10 - Essential (primary) hypertension Status: Chronic Assessment and Plan: Resume Coreg P.r.n. labetalol Plan DVT prophylaxis -Lovenox Stress ulcer prophylaxis -PPI Nutrition -clear liquid diet Code Status - Full Code Total Critical Care Time - 30 minutes Due to a high probability of clinically significant, life threatening deterioration, the patient required my highest level of preparedness to intervene emergently and I personally spent this critical care time directly and personally managing the patient. This critical care time included obtaining a history; examining the patient; pulse oximetry; ordering and review of studies; arranging urgent treatment with development of a management plan; evaluation of patient's response to treatment; frequent reassessment; and discussions with other providers. It was exclusive of separately billable procedures and treating other patients and teaching time. Please see Assessment and Plan section and the rest of the note for further information on patient assessment and treatment Subjective Date/time seen: 02/02/23 Patient was dialyzed yesterday and post dialysis her dialysis catheter was exchanged by general surgeon. Patient was on airway yesterday and was placed on BiPAP overnight. She slept well and denies any complaints this morning. She has BiPAP mask on and hence history and review of system is limited. She nodes her head no to pain or shortness of breath. Interval history: 52yo female with ESRD, COPD, DM and HTN here for shortness of breath and found to be in acute respiratory failure. Extubated 01/31 Exam Narrative: General: Pt is awake but drowsy. No distress Lungs/Chest: Trachea central Coarse BS B/L, by lateral occasional wheezing. Bibasilar crackles left subclavian temporary dialysis catheter and right side tunneled dialysis catheter Ca
--- NOTE | 2023-02-02 10:05 | PCSTNOTE ---
Therapist attempted to see patient for a bedside swallow study. Informed by nursing staff pt. was beginning dialysis for the next 3-4 hours.
[2023-02-02] MEDS: FUROSEMIDE INJ 100 MG/10 ML VIAL 80 MG IV PUSH ×2 (10:19→17:04)
[2023-02-02] MEDS: ENOXAPARIN 30 MG/0.3 ML SYRINGE SUB-Q (10:19)
[2023-02-02] MEDS: PANTOPRAZOLE SODIUM IV 40 MG VIAL IV PUSH (10:19)
[2023-02-02] MEDS: carvediloL 6.25 MG TABLET PO ×2 (10:25→21:09)
[2023-02-02 11:04] LABS: Triglycerides 73 mg/dL (<150)
--- NOTE | 2023-02-02 11:33 | PM.IMPN ---
Progress Note: A&P Assessment and Plan (1) Acute hypoxemic respiratory failure: Code(s): J96.01 - Acute respiratory failure with hypoxia Status: Acute Assessment and Plan: Patient was intubated due to hypoxia from pulmonary edema and sedation for dialysis catheter placement on 01/30. She had DUF 01/30 and HD 01/31. She was placed on SBT and did well. She was able to be extubated on 01/31 HD again on 02/01 with plans today. -transition back to HFNC and wean as able -appreciate water treatment plant engineer input. Discussed with water treatment plant engineer. (2) End stage kidney disease: Code(s): N18.6 - End stage renal disease Status: Chronic Assessment and Plan: Her baseline Cr 1.6-2.0. She developed ATN secondary to septic shock requiring HD when at [facility]. She had HD catheter malfunction. HD catheter placed left Subclavian on 01/30 She had DUF 01/30. HD 01/31 and 02/01; plan for HD again today. Catheter was working poorly so GenSurg changed out the left SC HD line over a wire on 02/01 Continue HD. Plan for tunnelled catheter on saturday Appreciated nephrology and GenSurg input (3) Altered mental status: Code(s): R41.82 - Altered mental status, unspecified Status: Acute Assessment and Plan: Patient confused. Possibly related to no HD, narcotics and poor metabolism. B12 and TSH normal. She is improved overall and no focal findings. Check CT brain. ST/PT/OT ordered. (4) Hemodialysis catheter malfunction: Code(s): T82.41XA - Breakdown (mechanical) of vascular dialysis catheter, initial encounter Status: Acute Assessment and Plan: Her right tunneled catheter was nonfunctioning x 1 week before admission resulting in the fluid overload. Left subclavian catheter placed but now having trouble with that line. Line changed out . Plan for tunneled catheter on Saturday. (5) Pulmonary edema: Code(s): J81.1 - Chronic pulmonary edema Status: Acute Assessment and Plan: Related to being off HD. See above (6) Anemia: Qualifiers: Anemia type: unspecified type Qualified Code(s): D64.9 - Anemia, unspecified Code(s): D64.9 - Anemia, unspecified Status: Acute Assessment and Plan: Hgb 6.4 on admission. Probably more chronic from her ESRD. bruising noted. She is not on anticoagulation. Transfused 1U PRBC. EPO started. Hgb better in the 7 range and stable. Follow and transfuse as needed. (7) Cellulitis of right leg without foot: Code(s): L03.115 - Cellulitis of right lower limb Status: Acute Assessment and Plan: Rash noted with blistering to the right lower leg. No cultures obtained. Started on Cefazolin and Vanco. Rash has resolved. Okay to stop abx if okay with others. (8) Candidiasis of skin: Code(s): B37.2 - Candidiasis of skin and nail Status: Acute Assessment and Plan: Skin much improved. Continue current wound care with anti-fungal (9) Diabetes: Code(s): E11.9 - Type 2 diabetes mellitus without complications Status: Acute Assessment and Plan: The patient's blood glucose was reviewed on 02/02 Glucose remains well controlled. AccuCheks covering with sliding scale. Hypoglycemia protocol to be available as needed. Continue to monitor (10) Hypertension: Code(s): I10 - Essential (primary) hypertension Status: Chronic Assessment and Plan: Patient's blood pressure was reviewed on 02/02 Blood pressure more elevated. medications adjusted. Follow. Will continue to monitor Plan DVT prophylaxis -Lovenox Stress ulcer prophylaxis -PPI Nutrition - NPO Code Status - Full Code Subjective Date/time seen: 02/02/23 11:33 Interval history: 52yo female with ESRD, COPD, DM and HTN here for shortness of breath and found to be in acute respiratory failure. Patient able to be extubated today. Patient agreed to wear BiPAP
[2023-02-02] MEDS: EPOETIN ALFA-EPBX 10,000 UNITS/ML VIAL 10000 UNITS IV PUSH (11:38)
--- NOTE | 2023-02-02 11:44 | P.PNNP_ITS ---
Progress Note: A&P Assessment and Plan (1) LEMUEL (acute kidney injury): Code(s): N17.9 - Acute kidney failure, unspecified Status: Acute Assessment and Plan: * recently started on hemodialysis due to ATN secondary to septic shock (during hospitalization at [facility]) * baseline creatinine ~ 1.6 - 2.0mg/dl * currently dialysis dependent * DUF on admission * HD yesterday but poor treatment today's blood flow seems to be better. * With see how the numbers are tomorrow but probably the next hemodialysis will be on Saturday * Volume status shows fluid overload. Will try for 4L if her blood pressure will tolerate it. * Potassium is okay and bicarbonate is okay as well (2) Hemodialysis catheter malfunction: Code(s): T82.41XA - Breakdown (mechanical) of vascular dialysis catheter, initial encounter Status: Acute Assessment and Plan: * right tunneled HD catheter non-functional for the last week if not longer * hence, in adequate dialysis/fluid removal in this time frame * left subclavian temporary HD catheter in place for dialysis -- poor function noted as well * discussed with Dr. Painting -- place guidewire exchange of temporary HD catheter this afternoon * plan new tunneled HD catheter next week (3) Acute hypoxemic respiratory failure: Code(s): J96.01 - Acute respiratory failure with hypoxia Status: Acute Assessment and Plan: * resolving -- extubated * due to volume overload/pulmonary edema +/- anemia * fluid removal with hemodialysis today. * continue supportive therapy (4) Anemia: Qualifiers: Anemia type: unspecified type Qualified Code(s): D64.9 - Anemia, unspecified Code(s): D64.9 - Anemia, unspecified Status: Acute Assessment and Plan: * as noted on admission * presumable related to LEMUEL/dialysis dependence * PRBC transfusion per protocol * Epogen with HD * Hemoglobin 7.4 today, stable. (5) Hypertension: Code(s): I10 - Essential (primary) hypertension Status: Chronic Assessment and Plan: * Systolic running in the 140s and 150s. It did drop to 119 as soon as she was placed on HD so nurse cut back from4L to3L. I instructed her to increase back to4L in 20minutes if the blood pressures looks stable at that point. (6) Diabetes: Code(s): E11.9 - Type 2 diabetes mellitus without complications Status: Acute Assessment and Plan: * follow accu-checks * glycemic control per hospitalists Subjective Date/time seen: 02/02/23 11:44 Interval history: Jeanette is awake but very weak and tired. Somewhat distracted. She is not short of breath. She is in no pain She is on dialysis and tolerating it well. She was seen at 10 30 a.m. Exam Narrative: General: middle aged female in NAD Heart: normal S1 and S2; no rub Lungs: coarse breath sounds with some bibasilar crackles; left subclavian temporary HD catheter; tunneled HD catheter on right Abdomen: soft, nontender, nondistended, positive bowel sounds Extremities: no cyanosis or clubbing; trace edema Skin: warm and intact Objective Data Vital Signs Vital Signs: Vital Signs - 24 hr 02/01/23 11:45 02/01/23 12:00 02/01/23 12:15 Temperature Pulse Rate 82 80 83 Respiratory Rate Blood Pressure 150/76 H 158/83 H 153/79 H Pulse Oximetry Oxygen Delive
--- NOTE | 2023-02-02 11:44 | PM.PNNEP ---
Progress Note: A&P Assessment and Plan (1) LEMUEL (acute kidney injury): Code(s): N17.9 - Acute kidney failure, unspecified Status: Acute Assessment and Plan: recently started on hemodialysis due to ATN secondary to septic shock (during hospitalization at [facility]) baseline creatinine ~ 1.6 - 2.0mg/dl currently dialysis dependent DUF on admission HD yesterday but poor treatment today's blood flow seems to be better. With see how the numbers are tomorrow but probably the next hemodialysis will be on Saturday Volume status shows fluid overload. Will try for 4L if her blood pressure will tolerate it. Potassium is okay and bicarbonate is okay as well (2) Hemodialysis catheter malfunction: Code(s): T82.41XA - Breakdown (mechanical) of vascular dialysis catheter, initial encounter Status: Acute Assessment and Plan: right tunneled HD catheter non-functional for the last week if not longer hence, in adequate dialysis/fluid removal in this time frame left subclavian temporary HD catheter in place for dialysis -- poor function noted as well discussed with Dr. Painting -- place guidewire exchange of temporary HD catheter this afternoon plan new tunneled HD catheter next week (3) Acute hypoxemic respiratory failure: Code(s): J96.01 - Acute respiratory failure with hypoxia Status: Acute Assessment and Plan: resolving -- extubated due to volume overload/pulmonary edema +/- anemia fluid removal with hemodialysis today. continue supportive therapy (4) Anemia: Qualifiers: Anemia type: unspecified type Qualified Code(s): D64.9 - Anemia, unspecified Code(s): D64.9 - Anemia, unspecified Status: Acute Assessment and Plan: as noted on admission presumable related to LEMUEL/dialysis dependence PRBC transfusion per protocol Epogen with HD Hemoglobin 7.4 today, stable. (5) Hypertension: Code(s): I10 - Essential (primary) hypertension Status: Chronic Assessment and Plan: Systolic running in the 140s and 150s. It did drop to 119 as soon as she was placed on HD so nurse cut back from4L to3L. I instructed her to increase back to4L in 20minutes if the blood pressures looks stable at that point. (6) Diabetes: Code(s): E11.9 - Type 2 diabetes mellitus without complications Status: Acute Assessment and Plan: follow accu-checks glycemic control per hospitalists Subjective Date/time seen: 02/02/23 11:44 Interval history: Jeanette is awake but very weak and tired. Somewhat distracted. She is not short of breath. She is in no pain She is on dialysis and tolerating it well. She was seen at 10 30 a.m. Exam Narrative: General: middle aged female in NAD Heart: normal S1 and S2; no rub Lungs: coarse breath sounds with some bibasilar crackles; left subclavian temporary HD catheter; tunneled HD catheter on right Abdomen: soft, nontender, nondistended, positive bowel sounds Extremities: no cyanosis or clubbing; trace edema Skin: warm and intact Objective Data Vital Signs Vital Signs: Vital Signs - 24 hr 02/01/23 11:45 02/01/23 12:00 02/01/23 12:15 Temperature Pulse Rate 82 80 83 Respiratory Rate Blood Pressure 150/76 H 158/83 H 153/79 H Pulse Oximetry Oxygen Delivery Oxygen Flow Rate Fraction of Inspired Oxygen 02/01/23 12:30 02/01/23 12:00 02/01/23 12:00 Temperature Pulse Rate 82 78 Respiratory Rate Blood Pressure 155/85 H Pulse Oximetry 99 Oxygen Delivery High Flow Therapy with Na Oxygen Flow Rate 40 Fraction of Inspired Oxygen 50 02/01/23 12:00 02/01/23 12:42 02/01/23 12:50 Temperature 97.6 F 97.6 F Pulse Rate 85 85 85 Respiratory Rate 12 12 Blood Pressure 153/79 H 156/97 H 166/85 H Pulse Oximetry 98 99 Oxygen Delivery Oxygen Flow Rate Fraction of Inspired Oxygen 02/01/23 15:01
[2023-02-02 14:07] LABS: Glucose Point of Care 175 mg/dl (65-105)
[2023-02-02] MEDS: ceFAZolin 1 GM/NS 50 ML 1 GM/50 ML BAG IVPB (17:04)
[2023-02-02] MEDS: INSULIN ASPART (*BKC) 100 UNITS/ML SUB-Q (17:17)
[2023-02-02 17:24] LABS: Glucose Point of Care 285 mg/dl (65-105)
[2023-02-03] VITALS (19 sets, daily range): BP systolic 106–132; BP diastolic 34–68; PULSE 72–100; RESP 10–20; TEMP 36.3–37.3; O2SAT 93–100
[2023-02-03 00:21] LABS: Glucose Point of Care 92 mg/dl (65-105)
[2023-02-03 05:49] LABS: Hematocrit 25.5 % (37.0-47.0); Hemoglobin 7.7 g/dL (12.0-15.0); Mean Corpuscular HGB Conc 30.2 g/dl (32-36); Mean Corpuscular Hemoglobin 30.1 pg (26-34); Mean Corpuscular Volume 99.6 fl (80-100); Mean Platelet Volume 9.6 fl (7.4-10.4); Platelet Count Result 237 k/mm3 (150-375); Red Blood Count 2.56 M/mm3 (4.2-5.4); Red Cell Distribution Width 17.8 % (11.5-14.5); White Blood Count 5.1 K/mm3 (4.5-10.0)
[2023-02-03 06:32] LABS: Alanine Aminotransferase 6 U/L (6-35); Albumin Level 3.3 g/dL (3.5-5.1); Alkaline Phosphatase 82 U/L (38-126); Anion Gap 9 mmol/L (8-16); Aspartate Amino Transferase 15 U/L (14-36); Bilirubin,Total 0.8 mg/dL (0.2-1.3); Blood Urea Nitrogen 31 mg/dL (7-17); Carbon Dioxide 29 mmol/L (22-30); Chloride 102 mmol/L (98-107); Estimated CRCL calculation 12 ml/min; Estimated Glomerular Filt Rate 8; Glucose 95 mg/dL (65-110); Magnesium 1.6 mg/dL (1.6-2.3); Phosphorus 5.4 mg/dL (2.5-4.5); Potassium 3.4 mmol/L (3.4-5.0); Sodium 140 mmol/L (137-145)
--- NOTE | 2023-02-03 08:23 | PM.IMPN ---
Progress Note: A&P Assessment and Plan (1) Acute hypoxemic respiratory failure: Code(s): J96.01 - Acute respiratory failure with hypoxia Status: Acute Assessment and Plan: Patient was intubated due to hypoxia from pulmonary edema and sedation for dialysis catheter placement on 01/30. She had DUF 01/30 and HD 01/31. She was placed on SBT and did well. She was able to be extubated on 01/31 HD on 02/01 and 02/02 Negative fluid balance -10L -transitioned to 2L NC. Wean as able -appreciate blast setter input. Discussed with blast setter. (2) End stage kidney disease: Code(s): N18.6 - End stage renal disease Status: Chronic Assessment and Plan: Her baseline Cr was 1.6-2.0. She developed ATN secondary to septic shock requiring HD when at [facility]. She had Rt tunneled HD catheter malfunction. A new HD catheter placed left subclavian on 01/30 She had DUF 01/30. HD 01/31- New catheter was working poorly so GenSurg changed out the left SC HD line over a wire on 02/01 Continue HD. Plan for tunnelled catheter on Saturday Remove [place] Appreciated nephrology and GenSurg input (3) Altered mental status: Code(s): R41.82 - Altered mental status, unspecified Status: Acute Assessment and Plan: Patient confused. 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 B12 and TSH normal. Possibly related to no HD, narcotics and poor metabolism. She is improved overall and no focal findings. Continue ST/PT/OT. (4) Hemodialysis catheter malfunction: Code(s): T82.41XA - Breakdown (mechanical) of vascular dialysis catheter, initial encounter Status: Acute Assessment and Plan: Her right tunneled catheter was nonfunctioning x 1 week before admission resulting in the fluid overload. Left subclavian catheter placed but then had trouble with that line. Line changed out 02/01. Plan for tunneled catheter on Saturday. Appreciate GenSurg input (5) Pulmonary edema: Code(s): J81.1 - Chronic pulmonary edema Status: Acute Assessment and Plan: Related to being off HD. Much better with reinstituting HD -10L fluid balance (6) Anemia: Qualifiers: Anemia type: unspecified type Qualified Code(s): D64.9 - Anemia, unspecified Code(s): D64.9 - Anemia, unspecified Status: Acute Assessment and Plan: Hgb 6.4 on admission. Probably more chronic from her ESRD. bruising noted. She is not on anticoagulation. Transfused 1U PRBC. EPO started. Hgb better in the 7 range and stable. Follow and transfuse as needed. (7) Cellulitis of right leg without foot: Code(s): L03.115 - Cellulitis of right lower limb Status: Acute Assessment and Plan: Rash noted with blistering to the right lower leg. No cultures obtained. Started on Cefazolin and Vanco. Rash has resolved. Okay to stop abx if okay with others. (8) Candidiasis of skin: Code(s): B37.2 - Candidiasis of skin and nail Status: Acute Assessment and Plan: Skin much improved. Continue current wound care with anti-fungal (9) Diabetes: Code(s): E11.9 - Type 2 diabetes mellitus without complications Status: Acute Assessment and Plan: The patient's blood glucose was reviewed on 02/03 Glucose remains well controlled. AccuCheks covering with sliding scale. Hypoglycemia protocol to be available as needed. Continue to monitor (10) Hypertension: Code(s): I10 - Essential (primary) hypertension Status: Chronic Assessment and Plan: Patient's blood pressure was reviewed on 02/03 Blood pressure well controlled Will continue to monitor Plan DVT prophylaxis -Lovenox Stress ulcer prophylaxis -PPI Code Status - Full Code Subjective Date/time seen: 02/03/23 08:23 Interval history: 52yo female with ESRD, COPD, DM and HTN here for shortness of br
[2023-02-03] MEDS: ENOXAPARIN 30 MG/0.3 ML SYRINGE SUB-Q (09:26)
[2023-02-03] MEDS: PANTOPRAZOLE SODIUM IV 40 MG VIAL IV PUSH (09:27)
[2023-02-03] MEDS: carvediloL 6.25 MG TABLET PO ×2 (09:27→21:45)
[2023-02-03] MEDS: BUMETANIDE 1 MG TABLET 2 MG PO ×2 (09:27→17:39)
--- NOTE | 2023-02-03 09:57 | PCSTNOTE ---
Please refer to the Bedside Swallow Evaluation in the EMR. Please note, silent aspiration cannot be ruled out at bedside.
[2023-02-03 11:56] LABS: Glucose Point of Care 242 mg/dl (65-105)
[2023-02-03] MEDS: INSULIN ASPART (*BKC) 100 UNITS/ML SUB-Q (11:57)
--- NOTE | 2023-02-03 13:24 | WPDINTPN ---
Progress Note: A&P Assessment and Plan (1) Acute hypoxemic respiratory failure: Code(s): J96.01 - Acute respiratory failure with hypoxia Status: Acute Assessment and Plan: Patient was intubated due to hypoxia from pulmonary edema and sedation for dialysis catheter placement She received dialysis overnight and 4 L fluid was removed 01/31 extubated after a successful weaning trial 01/31 only 1.5 L fluid was removed due to issue with the catheter. Nephrology was notified about the issue with the catheter by the dialysis nurse. Patient was on nasal cannula later after dialysis became more hypoxic and was placed on Airvo. Airvo was weaned down to 50% and fluids at 40 L. I ordered a BiPAP but patient as per reports refused to wear it. She is not in any respiratory distress although she is hypoxic. 02/01 patient received another session of dialysis and 2.5 L fluid was removed. HD catheter was exchanged by surgery -02/02: 3500 mL in fluid removed with dialysis -on 2 L nasal cannula with adequate O2 sats. (patient does use 2 L oxygen at home) - continue p.r.n. bronchodilators -dialysis per Nephrology -patient does make urine, Chest x-ray this morning: ?Stable diffuse lung disease with a basilar predominance, consistent with pulmonary edema and basilar atelectasis versus pneumonia. She was negative for influenza and COVID PCR (2) End stage kidney disease: Code(s): N18.6 - End stage renal disease Status: Chronic Assessment and Plan: 01/30 She received hemodialysis and 4 L fluid was removed 01/31 only 1.5 L fluid was removed due to issue with the catheter. Nephrology was notified about the issue with the catheter by the dialysis nurse. 02/01 patient received hemodialysis 2 L fluid was removed 05/05: 3500 mL in fluid removal with dialysis Electrolytes reviewed this morning and acceptable Nephrology following, will leave dialysis up to Nephrology (3) Pulmonary edema: Code(s): J81.1 - Chronic pulmonary edema Status: Acute Assessment and Plan: See above 02/02/2023 echocardiogram showed EF of 55%, diastolic dysfunction was present, normal RV size and systolic function. Normal mitral valve structure. No aortic stenosis or regurgitation, no pulmonary hypertension (4) Hypertension: Code(s): I10 - Essential (primary) hypertension Status: Chronic Assessment and Plan: Continue Coreg, bumetanide P.r.n. labetalol Plan DVT prophylaxis -Lovenox Stress ulcer prophylaxis -PPI Nutrition -clear liquid diet, advance as tolerated Code Status - Full Code Total Critical Care Time - 32 minutes Discuss with hospitalist, yung to transfer out of the ICU Due to a high probability of clinically significant, life threatening deterioration, the patient required my highest level of preparedness to intervene emergently and I personally spent this critical care time directly and personally managing the patient. This critical care time included obtaining a history; examining the patient; pulse oximetry; ordering and review of studies; arranging urgent treatment with development of a management plan; evaluation of patient's response to treatment; frequent reassessment; and discussions with other providers. It was exclusive of separately billable procedures and treating other patients and teaching time. Please see Assessment and Plan section and the rest of the note for further information on patient assessment and treatment Subjective Date/time seen: 02/03/23 13:24 Interval history: 52yo female with ESRD, COPD, DM and HTN here for shortness of breath and found to be in acute respiratory failure. Extubated 01/3102/03/2023: Patient seen and examined the ICU. Patient is awake, alert, answers to questions appropriately. Denies any shortness of breath, abdominal pain, nausea vomiting at this time. She is afebrile, hemodynamically stable, 2 L nasal cannula with good O2 sats. Patient w
--- NOTE | 2023-02-03 14:03 | P.PNNP_ITS ---
Progress Note: A&P Assessment and Plan (1) LEMUEL (acute kidney injury): Code(s): N17.9 - Acute kidney failure, unspecified Status: Acute Assessment and Plan: * recently started on hemodialysis due to ATN secondary to septic shock (during hospitalization at [facility]) * baseline creatinine ~ 1.6 - 2.0mg/dl * currently dialysis dependent * yesterday's dialysis went well. * Will do another treatment tomorrow. (2) Hemodialysis catheter malfunction: Code(s): T82.41XA - Breakdown (mechanical) of vascular dialysis catheter, initial encounter Status: Acute Assessment and Plan: * Temporary dialysis catheter in now. * It worked well yesterday. * She will need another tunneled line shortly. (3) Acute hypoxemic respiratory failure: Code(s): J96.01 - Acute respiratory failure with hypoxia Status: Acute Assessment and Plan: * resolving -- extubated * Now back on baseline oxygen support. * continue supportive therapy with oxygen, inhalers etc. (4) Anemia: Qualifiers: Anemia type: unspecified type Qualified Code(s): D64.9 - Anemia, unspecified Code(s): D64.9 - Anemia, unspecified Status: Acute Assessment and Plan: * as noted on admission * presumable related to LEMUEL * Epogen with HD * Hemoglobin 7.7 today, stable. (5) Hypertension: Code(s): I10 - Essential (primary) hypertension Status: Chronic Assessment and Plan: * Systolic running 106 to 125. * on no antihypertensives. (6) Diabetes: Code(s): E11.9 - Type 2 diabetes mellitus without complications Status: Acute Assessment and Plan: * follow accu-checks * glycemic control per hospitalists Subjective Date/time seen: 02/03/23 14:03 Interval history: Jeanette is feeling a little better. She is up in a chair. She is back on her baseline oxygen [id number]/minute. Exam Narrative: General: middle aged female in NAD Heart: normal S1 and S2; no rub or gallop Lungs: coarse breath sounds with some bibasilar crackles; left subclavian temporary HD catheter; tunneled HD catheter on right Abdomen: bowel sounds positive nontender Extremities: no cyanosis or clubbing; trace edema Skin: No rash Objective Data Vital Signs Vital Signs: Vital Signs - 24 hr 02/02/23 16:00 02/02/23 16:00 02/02/23 18:00 Temperature 98.4 F Pulse Rate 84 90 76 Respiratory Rate 12 Blood Pressure 121/56 L Pulse Oximetry 100 Oxygen Delivery Oxygen Flow Rate 02/02/23 16:00 02/02/23 18:00 02/02/23 20:45 Temperature Pulse Rate 77 Respiratory Rate 12 Blood Pressure 121/64 Pulse Oximetry 96 96 96 Oxygen Delivery High Flow Nasal Cannula High Flow Nasal Cannula Oxygen Flow Rate 8 5 02/02/23 21:09 02/02/23 20:00 02/02/23 20:00 Temperature Pulse Rate 84 80 Respiratory Rate Blood Pressure Pulse Oximetry 96 Oxygen Delivery High Flow Nasal Cannula Oxygen Flow Rate 5 02/03/23 00:00 02/02/23 22:00 02/03/23 00:00 Temperature 98.7 F 98.8 F Pulse Rate 76 77 Respiratory Rate 13 10 L
--- NOTE | 2023-02-03 14:03 | PM.PNNEP ---
Progress Note: A&P Assessment and Plan (1) LEMUEL (acute kidney injury): Code(s): N17.9 - Acute kidney failure, unspecified Status: Acute Assessment and Plan: recently started on hemodialysis due to ATN secondary to septic shock (during hospitalization at [facility]) baseline creatinine ~ 1.6 - 2.0mg/dl currently dialysis dependent yesterday's dialysis went well. Will do another treatment tomorrow. (2) Hemodialysis catheter malfunction: Code(s): T82.41XA - Breakdown (mechanical) of vascular dialysis catheter, initial encounter Status: Acute Assessment and Plan: Temporary dialysis catheter in now. It worked well yesterday. She will need another tunneled line shortly. (3) Acute hypoxemic respiratory failure: Code(s): J96.01 - Acute respiratory failure with hypoxia Status: Acute Assessment and Plan: resolving -- extubated Now back on baseline oxygen support. continue supportive therapy with oxygen, inhalers etc. (4) Anemia: Qualifiers: Anemia type: unspecified type Qualified Code(s): D64.9 - Anemia, unspecified Code(s): D64.9 - Anemia, unspecified Status: Acute Assessment and Plan: as noted on admission presumable related to LEMUEL Epogen with HD Hemoglobin 7.7 today, stable. (5) Hypertension: Code(s): I10 - Essential (primary) hypertension Status: Chronic Assessment and Plan: Systolic running 106 to 125. on no antihypertensives. (6) Diabetes: Code(s): E11.9 - Type 2 diabetes mellitus without complications Status: Acute Assessment and Plan: follow accu-checks glycemic control per hospitalists Subjective Date/time seen: 02/03/23 14:03 Interval history: Jeanette is feeling a little better. She is up in a chair. She is back on her baseline oxygen [id number]/minute. Exam Narrative: General: middle aged female in NAD Heart: normal S1 and S2; no rub or gallop Lungs: coarse breath sounds with some bibasilar crackles; left subclavian temporary HD catheter; tunneled HD catheter on right Abdomen: bowel sounds positive nontender Extremities: no cyanosis or clubbing; trace edema Skin: No rash Objective Data Vital Signs Vital Signs: Vital Signs - 24 hr 02/02/23 16:00 02/02/23 16:00 02/02/23 18:00 Temperature 98.4 F Pulse Rate 84 90 76 Respiratory Rate 12 Blood Pressure 121/56 L Pulse Oximetry 100 Oxygen Delivery Oxygen Flow Rate 02/02/23 16:00 02/02/23 18:00 02/02/23 20:45 Temperature Pulse Rate 77 Respiratory Rate 12 Blood Pressure 121/64 Pulse Oximetry 96 96 96 Oxygen Delivery High Flow Nasal Cannula High Flow Nasal Cannula Oxygen Flow Rate 8 5 02/02/23 21:09 02/02/23 20:00 02/02/23 20:00 Temperature Pulse Rate 84 80 Respiratory Rate Blood Pressure Pulse Oximetry 96 Oxygen Delivery High Flow Nasal Cannula Oxygen Flow Rate 5 02/03/23 00:00 02/02/23 22:00 02/03/23 00:00 Temperature 98.7 F 98.8 F Pulse Rate 76 77 Respiratory Rate 13 10 L Blood Pressure 102/68 114/54 L Pulse Oximetry 97 100 97 Oxygen Delivery High Flow Nasal Cannula Oxygen Flow Rate 5 02/02/23 22:00 02/03/23 00:00 02/03/23 02:00 Temperature Pulse Rate 76 77 75 Respiratory Rate 10 L Blood Pressure 116/53 L Pulse Oximetry 97 Oxygen Delivery Oxygen Flow Rate 02/03/23 02:00 02/03/23 04:00 02/03/23 04:00 Temperature Pulse Rate 75 81 Respiratory Rate Blood Pressure Pulse Oximetry 100 Oxygen Delivery High Flow Nasal Cannula Oxygen Flow Rate 4 02/03/23 06:00 02/03/23 06:49 02/03/23 04:00 Temperature 99.1 F Pulse Rate 72 81 Respiratory Rate 15 Blood Pressure 110/53 L Pulse Oximetry 100 99 Oxygen Delivery High Flow Nasal Cannula Oxygen Flow Rate 3 02/03/23 06:00 02/03/23 07:29 02/03/23 07:57 Temperature 99.2
[2023-02-03 16:52] LABS: Glucose Point of Care 98 mg/dl (65-105)
[2023-02-03] MEDS: ceFAZolin 1 GM/NS 50 ML 1 GM/50 ML BAG IVPB (17:38)
[2023-02-03 20:28] LABS: Glucose Point of Care 120 mg/dl (65-105)
[2023-02-04] VITALS (19 sets, daily range): BP systolic 96–148; BP diastolic 52–65; PULSE 69–86; RESP 18–24; TEMP 36.2–36.5; O2SAT 94–99
[2023-02-04 07:28] LABS: Glucose Point of Care 86 mg/dl (65-105)
[2023-02-04 08:15] LABS: Basophils Percent Auto 0.5 % (0.2-1.2); Eosinophils Absolute Auto 0.1 K/mm3 (0-0.3); Eosinophils Percent Auto 2.5 % (0-4.4); Hematocrit 25.4 % (37.0-47.0); Hemoglobin 7.7 g/dL (12.0-15.0); Immature Granulocyte Absolute 0.02 K/mm3 (0.00-0.031); Immature Granulocyte Percent A 0.4 % (0-0.5); Lymphocytes Absolute Auto 1.45 K/mm3 (0.9-3.2); Lymphocytes Percent Auto 25.4 % (18.3-44.2); Mean Corpuscular HGB Conc 30.3 g/dl (32-36); Mean Corpuscular Hemoglobin 29.8 pg (26-34); Mean Corpuscular Volume 98.4 fl (80-100); Mean Platelet Volume 9.4 fl (7.4-10.4); Monocytes Absolute Auto 0.8 K/mm3 (0.1-0.6); Monocytes Percent Auto 13.5 % (2.6-8.5); Neutrophils Absolute Auto 3.3 K/mm3 (1.3-6.7); Neutrophils Percent Auto 57.7 % (45.5-73.1); Platelet Count Result 239 k/mm3 (150-375); Red Blood Count 2.58 M/mm3 (4.2-5.4); White Blood Count 5.7 K/mm3 (4.5-10.0)
[2023-02-04 08:24] LABS: Alanine Aminotransferase 6 U/L (6-35); Albumin Level 3.4 g/dL (3.5-5.1); Alkaline Phosphatase 73 U/L (38-126); Anion Gap 8 mmol/L (8-16); Aspartate Amino Transferase 16 U/L (14-36); Bilirubin,Total 0.9 mg/dL (0.2-1.3); Blood Urea Nitrogen 43 mg/dL (7-17); Calcium 8.9 mg/dL (8.4-10.2); Carbon Dioxide 28 mmol/L (22-30); Chloride 99 mmol/L (98-107); Estimated CRCL calculation 12 ml/min; Estimated Glomerular Filt Rate 8; Glucose 96 mg/dL (65-110); Magnesium 1.5 mg/dL (1.6-2.3); Phosphorus 5.8 mg/dL (2.5-4.5); Potassium 3.4 mmol/L (3.4-5.0); Sodium 135 mmol/L (137-145); Triglycerides 82 mg/dL (<150)
[2023-02-04] MEDS: carvediloL 6.25 MG TABLET PO ×2 (08:35→20:40)
--- NOTE | 2023-02-04 09:17 | PM.IMPN ---
Progress Note: A&P Assessment and Plan (1) Acute hypoxemic respiratory failure: Code(s): J96.01 - Acute respiratory failure with hypoxia Status: Acute Assessment and Plan: Patient was intubated due to hypoxia from pulmonary edema and sedation for dialysis catheter placement on 01/30. She had DUF 01/30 and HD 01/31. She was placed on SBT and did well. She was able to be extubated on 01/31. HD on 02/01 and 02/02 Negative fluid balance -10L -transitioned to 2L NC but higher o2 requirement again this morning. She did not wear BiPAP last night. Check ABG, CXR. (2) End stage kidney disease: Code(s): N18.6 - End stage renal disease Status: Chronic Assessment and Plan: Her baseline Cr was 1.6-2.0. She developed ATN secondary to septic shock requiring HD when at [facility]. She had Rt tunneled HD catheter malfunction prompting this admission. A new HD catheter placed left subclavian on 01/30 She had DUF 01/30. HD 01/31- New catheter was working poorly so GenSurg changed out the left SC HD line over a wire on 02/01 Continue HD. Plan was for tunnelled catheter today but now more hypoxic. As above Appreciated nephrology and GenSurg input (3) Altered mental status: Code(s): R41.82 - Altered mental status, unspecified Status: Acute Assessment and Plan: Patient confused but better. 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 B12 and TSH normal. [place] related to no HD, narcotics and poor metabolism. She continues to improve overall and no focal findings. Continue ST/PT/OT. (4) Hemodialysis catheter malfunction: Code(s): T82.41XA - Breakdown (mechanical) of vascular dialysis catheter, initial encounter Status: Acute Assessment and Plan: Her right tunneled catheter was nonfunctioning x 1 week before admission resulting in the fluid overload. Left subclavian catheter placed but then had trouble with that line. Line changed out 02/01. Plan for tunneled catheter but now on hold Appreciate GenSurg input (5) Pulmonary edema: Code(s): J81.1 - Chronic pulmonary edema Status: Acute Assessment and Plan: Related to being off HD. Much better with reinstituting HD Negative fluid balance (6) Anemia: Qualifiers: Anemia type: unspecified type Qualified Code(s): D64.9 - Anemia, unspecified Code(s): D64.9 - Anemia, unspecified Status: Acute Assessment and Plan: Hgb 6.4 on admission. Probably more chronic from her ESRD. bruising noted. She is not on anticoagulation. Transfused 1U PRBC. EPO started. Hgb better in the 7 range and stable. Follow and transfuse as needed. (7) Cellulitis of right leg without foot: Code(s): L03.115 - Cellulitis of right lower limb Status: Acute Assessment and Plan: Rash noted with blistering to the right lower leg. No cultures obtained. Started on Cefazolin and Vanco. Rash has resolved. Okay to stop abx if okay with others. (8) Candidiasis of skin: Code(s): B37.2 - Candidiasis of skin and nail Status: Acute Assessment and Plan: Skin much improved. Continue current wound care (9) Diabetes: Code(s): E11.9 - Type 2 diabetes mellitus without complications Status: Acute Assessment and Plan: The patient's blood glucose was reviewed on 02/04 Glucose remains well controlled. AccuCheks covering with sliding scale. Hypoglycemia protocol to be available as needed. Continue to monitor (10) Hypertension: Code(s): I10 - Essential (primary) hypertension Status: Chronic Assessment and Plan: Patient's blood pressure was reviewed on 02/04 Blood pressure well controlled Will continue to monitor Plan DVT prophylaxis -Lovenox on hold; SCDs Stress ulcer prophylaxis -PPI Code Status - Full Code Subjective Date/time seen: 02/04/23
--- NOTE | 2023-02-04 10:48 | PM.PNNEP ---
Progress Note: A&P Assessment and Plan (1) LEMUEL (acute kidney injury): Code(s): N17.9 - Acute kidney failure, unspecified Status: Acute Assessment and Plan: recently started on hemodialysis due to ATN secondary to septic shock ([facility] baseline creatinine ~ 1.6 - 2.0mg/dl currently dialysis dependent plan HD tomorrow (normally does T/T/S) (2) Hemodialysis catheter malfunction: Code(s): T82.41XA - Breakdown (mechanical) of vascular dialysis catheter, initial encounter Status: Acute Assessment and Plan: temporary dialysis catheter in now. will keep using this for now planning new HD catheter this week for ongoing outpatient dialysis needs (3) Acute hypoxemic respiratory failure: Code(s): J96.01 - Acute respiratory failure with hypoxia Status: Acute Assessment and Plan: resolving however, worsening hypoxia noted this AM continue supportive therapy with oxygen, inhalers etc. (4) Anemia: Qualifiers: Anemia type: unspecified type Qualified Code(s): D64.9 - Anemia, unspecified Code(s): D64.9 - Anemia, unspecified Status: Acute Assessment and Plan: as noted on admission presumable related to LEMUEL Epogen with HD follow trend of H/H (5) Hypertension: Code(s): I10 - Essential (primary) hypertension Status: Chronic Assessment and Plan: reasonable control follow trend of hemodynamics (6) Diabetes: Code(s): E11.9 - Type 2 diabetes mellitus without complications Status: Acute Assessment and Plan: follow accu-checks glycemic control per hospitalists Will continue to follow. Subjective Date/time seen: 02/04/23 10:48 Interval history: Follow-up for acute kidney injury/acute renal failure on hemodialysis. Noted to be more hypoxic this AM requiring an increase in supplemental oxygen although she denied any complaints of shortness of breath; no other apparent complaints voiced at the the time of my visit; no events overnight noted. Exam Narrative: General: middle aged female in NAD Heart: normal S1 and S2; no rub or gallop Lungs: coarse breath sounds with some bibasilar crackles; left subclavian temporary HD catheter; tunneled HD catheter on right Abdomen: soft, nontender, + BS Extremities: no cyanosis or clubbing; trace edema Skin: No nodules Objective Data Vital Signs Vital Signs: Vital Signs Temp Pulse Resp BP Pulse Ox O2 Del Method O2 Flow Rate 02/04/23 10:00 86 02/04/23 08:00 84 02/04/23 08:00 96 High Flow Nasal Cannula 8 02/04/23 09:38 99 High Flow Nasal Cannula 3 02/04/23 08:51 98 High Flow Nasal Cannula 8 02/04/23 08:35 81 02/04/23 08:00 97.3 F L 81 24 H 125/54 L 95 02/04/23 06:00 76 02/04/23 04:00 70 02/04/23 04:00 75 18 97 High Flow Nasal Cannula 2 02/04/23 03:28 97.7 F 75 18 96/53 L 97 02/04/23 02:00 69 02/03/23 22:00 75 02/04/23 00:00 79 02/03/23 20:00 91 02/04/23 00:00 98 High Flow Nasal Cannula 2 02/03/23 23:35 97.4 F L 79 16 132/68 96 02/03/23 20:00 90 20 100 High Flow Nasal Cannula 2 02/03/23 20:00 98.1 F 90 20 127/62 100 02/03/23 18:00 84 Intake/Output Intake/Output: Intake & Output 02/01/23 02/02/23 02/03/23 02/04/23 23:59 23:59 23:59 23:59 Intake Total 652 068 6388 120 Output Total 3225 4900 750 550 Balance -0735 -0719 368 -430 Meds/Results Medications: Active Medications Generic Name Dose Route Start Last Admin Trade Name Freq PRN Reason Stop Dose Admin Albuterol 2.5 mg 02/01/23 08:36 02/01/23 08:52 Albuterol Sulfate Neb 2.5 Mg/3 Ml Inh INHALATION 2.5 mg Q4HRT PRN Administration Shortness Of Breath Or Wheezing Bumetanide 2 mg 02/03/23 09:00 02/04/23 11:39 Bumetanide 1 Mg Tablet PO
[2023-02-04 10:51] LABS: Alveolar/Arterial O2 Gradient 91.9 mmHg; Base Excess ABG 2.6 mEq/l (+/-2.0); Fractional Inspired Oxygen 28 %; HCO3 ABG 26.9 mEq/l (22.0-26.0); Oxygen Saturation ABG 92.3 % (95.0-100.0); Oxyhemoglobin 89.2 % THb (90.0-100.0); PCO2 ABG 39.9 mmHg (35.0-45.0); PO2 ABG 60.7 mmHg (80.0-100.0); PO2 FiO2 Ratio Arterial Blood 2.17 %; Total Hemoglobin 9.5 g/dL (12.0-18.0); pH ABG 7.446 (7.350-7.450)
[2023-02-04 10:52] LABS: Device NASAL CANNULA; Modified Allen's Test Pass; Site Drawn LEFT RADIAL
[2023-02-04] MEDS: PANTOPRAZOLE SODIUM IV 40 MG VIAL IV PUSH (11:39)
[2023-02-04] MEDS: BUMETANIDE 1 MG TABLET 2 MG PO ×2 (11:39→18:30)
[2023-02-04 12:33] LABS: Glucose Point of Care 151 mg/dl (65-105)
--- NOTE | 2023-02-04 13:25 | PCNFU ---
Nutrition Follow-Up Complete: Increased protein energy needs related to hemodialysis as evidenced by ESRD Goal:Meet estimated protein energy needs Pt current nutrition is Renal / Diabetic consistent carb. Nutrition recommendation: Add Nepro shakes daily Last recorded weight is 87.1 kg. Bowel Motility: +BM 02/03 Labs Reviewed: Hgb:7.7, HCT:25.4, Alb:3.4, NA:135, BUN:43, Cr:5.4 Meds Noted: bumex, lovenox, protonix Skin: cellulitis BLE Additional Notes: Pt is now on a renal diabetic consistent carb diet, intake 25-50% at this time. Pt agrees to Nepro shakes for additional caloric and protein intake. Monitor intake, labs, weights Follow up in 5 days.
[2023-02-04 18:16] LABS: Glucose Point of Care 115 mg/dl (65-105)
[2023-02-04] MEDS: ceFAZolin 1 GM/NS 50 ML 1 GM/50 ML BAG IVPB (18:30)
[2023-02-04 20:47] LABS: Glucose Point of Care 144 mg/dl (65-105)
[2023-02-05] VITALS (30 sets, daily range): BP systolic 109–151; BP diastolic 49–87; PULSE 69–91; RESP 18–20; TEMP 36.4–37; O2SAT 96–98
[2023-02-05 05:33] LABS: Hematocrit 24.2 % (37.0-47.0); Hemoglobin 7.5 g/dL (12.0-15.0); Mean Corpuscular Volume 96.8 fl (80-100); Mean Platelet Volume 9.1 fl (7.4-10.4); Platelet Count Result 218 k/mm3 (150-375); Red Cell Distribution Width 17.6 % (11.5-14.5); White Blood Count 5.5 K/mm3 (4.5-10.0)
[2023-02-05 05:43] LABS: Albumin Level 3.3 g/dL (3.5-5.1); Alkaline Phosphatase 72 U/L (38-126); Anion Gap 11 mmol/L (8-16); Aspartate Amino Transferase 18 U/L (14-36); Bilirubin,Total 0.8 mg/dL (0.2-1.3); Blood Urea Nitrogen 52 mg/dL (7-17); Calcium 8.6 mg/dL (8.4-10.2); Carbon Dioxide 27 mmol/L (22-30); Chloride 97 mmol/L (98-107); Estimated CRCL calculation 10 ml/min; Estimated Glomerular Filt Rate 7; Glucose 120 mg/dL (65-110); Magnesium 1.4 mg/dL (1.6-2.3); Potassium 3.6 mmol/L (3.4-5.0); Sodium 135 mmol/L (137-145)
[2023-02-05 05:53] LABS: Alanine Aminotransferase < 6 U/L (6-35)
[2023-02-05] MEDS: PANTOPRAZOLE SODIUM IV 40 MG VIAL IV PUSH (08:32)
[2023-02-05] MEDS: carvediloL 6.25 MG TABLET PO ×2 (08:32→20:32)
[2023-02-05] MEDS: BUMETANIDE 1 MG TABLET 2 MG PO ×2 (08:32→16:40)
[2023-02-05] MEDS: MAGNESIUM SULF 1 GM/D5W 100 ML 1 GM/100 ML BAG IVPB (08:33)
--- NOTE | 2023-02-05 09:55 | PC.NURSE ---
Pt to dialysis via bed
--- NOTE | 2023-02-05 10:10 | PCOTNOTE ---
Patient out of the room at this time. Per RN, Patient is in dialysis this A.M.
--- NOTE | 2023-02-05 10:45 | PM.PNNEP ---
Progress Note: A&P Assessment and Plan (1) LEMUEL (acute kidney injury): Code(s): N17.9 - Acute kidney failure, unspecified Status: Acute Assessment and Plan: recently started on hemodialysis due to ATN secondary to septic shock (during hospitalization at [facility]) baseline creatinine ~ 1.6 - 2.0mg/dl currently dialysis dependent HD today since outpatient schedule is T/T/S (2) Hemodialysis catheter malfunction: Code(s): T82.41XA - Breakdown (mechanical) of vascular dialysis catheter, initial encounter Status: Acute Assessment and Plan: temporary dialysis catheter in place will keep using this for now planning new HD catheter tentatively tomorrow (3) Acute hypoxemic respiratory failure: Code(s): J96.01 - Acute respiratory failure with hypoxia Status: Acute Assessment and Plan: resolving continue supportive therapy with oxygen, inhalers etc. continue fluid removal to maintain euvolemia (4) Anemia: Qualifiers: Anemia type: unspecified type Qualified Code(s): D64.9 - Anemia, unspecified Code(s): D64.9 - Anemia, unspecified Status: Acute Assessment and Plan: as noted on admission presumable related to LEMUEL Epogen with HD follow trend of H/H (5) Hypertension: Code(s): I10 - Essential (primary) hypertension Status: Chronic Assessment and Plan: reasonable control follow trend of hemodynamics (6) Diabetes: Code(s): E11.9 - Type 2 diabetes mellitus without complications Status: Acute Assessment and Plan: follow accu-checks glycemic control per hospitalists Will continue to follow. Subjective Date/time seen: 02/05/23 10:45 Interval history: Follow-up for acute kidney injury/acute renal failure on hemodialysis. Tolerating hemodialysis treatment at the time of my visit (seen at 10:30AM); breathing/respiratory status seems stable; no apparent distress noted; Exam Narrative: General: middle aged female in NAD Heart: normal S1 and S2; no rub Lungs: coarse breath sounds and decreased at bases; left subclavian temporary HD catheter; tunneled HD catheter on right Abdomen: soft, nontender, + BS Extremities: no cyanosis or clubbing; trace edema Skin: Warm and dry Objective Data Vital Signs Vital Signs: Vital Signs Temp Pulse Resp BP Pulse Ox O2 Del Method O2 Flow Rate 02/05/23 10:00 76 02/05/23 08:00 81 02/05/23 08:00 97 Nasal Cannula 2 02/05/23 08:32 83 02/05/23 07:43 98.1 F 82 18 131/53 L 97 02/05/23 06:00 72 02/05/23 04:00 72 02/05/23 02:00 81 02/05/23 00:00 75 02/05/23 04:00 76 20 98 Nasal Cannula 2 02/05/23 04:00 97.7 F 79 20 144/63 H 96 02/05/23 00:00 76 20 98 Nasal Cannula 2 02/05/23 00:00 97.8 F 76 20 139/62 98 02/04/23 22:00 76 02/04/23 20:00 81 02/04/23 20:40 81 02/04/23 20:00 79 20 98 Nasal Cannula 2 02/04/23 16:00 94 Nasal Cannula 2 02/04/23 18:00 84 02/04/23 16:00 85 02/04/23 19:36 97.4 F L 79 20 146/53 H 98 02/04/23 15:47 97.6 F 79 22 H 148/65 H 94 02/04/23 14:00 77 Intake/Output Intake/Output: Intake & Output 02/02/23 02/03/23 02/04/23 02/05/23 23:59 23:59 23:59 23:59 Intake Total 609 1303 690 360 Output Total 4900 750 1250 500 Balance -4291 553 -560 -140 Meds/Results Medications: Active Medications Generic Name Dose Route Start Last Admin Trade Name Freq PRN Reason Stop Dose Admin Albuterol 2.5 mg 02/01/23 08:36 02/01/23 08:52 Albuterol Sulfate Neb 2.5 Mg/3 Ml Inh INHALATION 2.5 mg Q4HRT PRN Administration Shortness Of Breath Or Wheezing Bumetanide 2 mg 02/03/23 09:00 02/05/23 08:32 Bumetanide 1 Mg Tablet PO 2 mg BID ISSAC Administration Carvedilol 6.25 mg 02/02/23 09:00 02/05/23
--- NOTE | 2023-02-05 11:17 | PCPTNOTE ---
The patient treatment was not able to be completed due to patient out of room for dialysis. Will plan to continue treatment per plan of care.
--- NOTE | 2023-02-05 14:20 | PC.NURSE ---
Pt returned from dialysis via bed, with no issues noted.
--- NOTE | 2023-02-05 14:22 | PM.PNGS ---
Progress Note: A&P Assessment and Plan (1) Hemodialysis catheter malfunction: Code(s): T82.41XA - Breakdown (mechanical) of vascular dialysis catheter, initial encounter Status: Acute Assessment and Plan: Will try to add patient onto surgery schedule tomorrow for removal and replacement of tunneled dialysis catheter by Dr. Painting. Description of the procedure, alternatives, risks, and benefits were discussed with the patient and she agrees to proceed. Will make her NPO after midnight. Plan I have discussed the patient's case and plan of care with Dr. Painting. Subjective Subjective Date/Time Seen: 02/05/23 12:22 Patient reports: no new complaints Interval history: Yesterday, patient was scheduled to have her permacath placed and she had some hypoxia with increased oxygen requirements. She went from 2 liters to reportedly 12 liters of O2 requirements. At that point, surgery was cancelled. Per nursing, this was a short event and she was quickly able to be titrated back down to her baseline 2 liters of O2. Patient is now seen in dialysis. Per dialysis nurse, they are able to do their treatment. They had an issue at first with not having any blood draw back on the venous port, but this improved after heparin. She is being dialyzed without any issues at this time. She is back on 2 liters O2 and is doing well with no respiratory complaints today. Exam Narrative: Right chest tunneled dialysis cath with dressing dry and intact. Left chest Julio catheter with some bloody drainage, currently on hemodialysis. Resp: Effort & Inspection: normal respiratory effort Auscultation: clear to auscultation bilaterally Objective Data Vital Signs Vital Signs: Vital Signs - 24 hr 02/04/23 15:47 02/04/23 19:36 02/04/23 16:00 Temperature 97.6 F 97.4 F L Pulse Rate 79 79 85 Respiratory Rate 22 H 20 Blood Pressure 148/65 H 146/53 H Pulse Oximetry 94 98 Oxygen Delivery Oxygen Flow Rate Fraction of Inspired Oxygen 02/04/23 18:00 02/04/23 16:00 02/04/23 20:00 Temperature Pulse Rate 84 79 Respiratory Rate 20 Blood Pressure Pulse Oximetry 94 98 Oxygen Delivery Nasal Cannula Nasal Cannula Oxygen Flow Rate 2 2 Fraction of Inspired Oxygen 60 02/04/23 20:40 02/04/23 20:00 02/04/23 22:00 Temperature Pulse Rate 81 81 76 Respiratory Rate Blood Pressure Pulse Oximetry Oxygen Delivery Oxygen Flow Rate Fraction of Inspired Oxygen 02/05/23 00:00 02/05/23 00:00 02/05/23 04:00 Temperature 97.8 F 97.7 F Pulse Rate 76 76 79 Respiratory Rate 20 20 20 Blood Pressure 139/62 144/63 H Pulse Oximetry 98 98 96 Oxygen Delivery Nasal Cannula Oxygen Flow Rate 2 Fraction of Inspired Oxygen 60 02/05/23 04:00 02/05/23 00:00 02/05/23 02:00 Temperature Pulse Rate 76 75 81 Respiratory Rate 20 Blood Pressure Pulse Oximetry 98 Oxygen Delivery Nasal Cannula Oxygen Flow Rate 2 Fraction of Inspired Oxygen 60 02/05/23 04:00 02/05/23 06:00 02/05/23 07:43 Temperature 98.1 F Pulse Rate 72 72 82 Respiratory Rate 18 Blood Pressure 131/53 L Pulse Oximetry 97 Oxygen Delivery Oxygen Flow Rate Fraction of Inspired Oxygen 02/05/23 08:32 02/05/23 08:00 02/05/23 08:00 Temperature Pulse Rate 83 81 Respiratory Rate Blood Pressure Pulse Oximetry 97 Oxygen Delivery Nasal Cannula Oxygen Flow Rate 2 Fraction of Inspired Oxygen 02/05/23 10:00 02/05/23 12:00 02/05/23 10:07 Temperature Pulse Rate 76 81 Respiratory Rate Blood Pressure Pulse Oximetry Oxygen Delivery Oxygen Flow Rate 2 Fraction of Inspired Oxygen Intake/Output Intake/Output: Intake & Output 02/02/23 02/03/23 02/04/23 02/05/23 23:59 23:59 23:59 23:59 Intake Total 609 1303 690 360 Output Total 3506 750 1250 500 [facility] -4291 553 -560 -140 Meds/Results Medications: Active Medications Generic Name Dose Route St
[2023-02-05] MEDS: INSULIN ASPART (*BKC) 100 UNITS/ML SUB-Q (16:40)
[2023-02-05 16:46] LABS: Glucose Point of Care 207 mg/dl (65-105)
[2023-02-05] MEDS: ACETAMINOPHEN 325 MG TABLET 650 MG PO (16:52)
--- NOTE | 2023-02-05 17:07 | PM.IMPN ---
Progress Note: A&P Assessment and Plan (1) Acute hypoxemic respiratory failure: Code(s): J96.01 - Acute respiratory failure with hypoxia Status: Acute Assessment and Plan: Patient was intubated due to hypoxia from pulmonary edema and sedation for dialysis catheter placement on 01/30. She had DUF 01/30 and HD 01/31. She was placed on SBT and did well. She was able to be extubated on 01/31. HD used to control fluid balance with negative fluid balance -10L Transitioned to 2L NC. She is not wearing BiPAP at night. CXR 02/04:Small bilateral pleural effusions with associated airspace disease. Follow (2) End stage kidney disease: Code(s): N18.6 - End stage renal disease Status: Chronic Assessment and Plan: Her baseline Cr was 1.6-2.0. She developed ATN secondary to septic shock requiring HD when at [facility]. She ws discharged with Rt tunneled HD catheter for chronic HD but the catheter malfunctioned prompting this admission. A new HD catheter placed left subclavian on 01/30. HD with sluggish flow b/c new catheter was working poorly so GenSurg changed out the left SC HD line over a wire on 02/01 This newest cathaeter also performing poorly. Continue HD as tolerated. Plan was for tunnelled catheter tomorrow Appreciated nephrology and GenSurg input (3) Altered mental status: Code(s): R41.82 - Altered mental status, unspecified Status: Acute Assessment and Plan: Patient confused on admission and post extubation. 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 B12 and TSH normal. [place] related to no HD, narcotics and poor metabolism. Mental status continues to improve overall Continue ST/PT/OT. (4) Hemodialysis catheter malfunction: Code(s): T82.41XA - Breakdown (mechanical) of vascular dialysis catheter, initial encounter Status: Acute Assessment and Plan: Her right tunneled catheter was nonfunctioning x 1 week before admission resulting in the fluid overload. Left subclavian catheter placed but then had trouble with that line. Line changed out 02/01 but again having trouble. Plan for tunneled catheter tomorrow Appreciate GenSurg input (5) Pulmonary edema: Code(s): J81.1 - Chronic pulmonary edema Status: Acute Assessment and Plan: Related to being off HD. Much better with reinstituting HD Negative fluid balance (6) Anemia: Qualifiers: Anemia type: unspecified type Qualified Code(s): D64.9 - Anemia, unspecified Code(s): D64.9 - Anemia, unspecified Status: Acute Assessment and Plan: Hgb 6.4 on admission. Probably more chronic from her ESRD. Bruising noted. She is not on anticoagulation. Transfused 1U PRBC. EPO started. B12/folate normal. Hgb better in the 7 range and stable. Follow and transfuse as needed. Check iron studies (7) Cellulitis of right leg without foot: Code(s): L03.115 - Cellulitis of right lower limb Status: Acute Assessment and Plan: Rash noted with blistering to the right lower leg. No cultures obtained. Started on Cefazolin and Vanco. Rash has resolved. Okay to stop abx if okay with others. (8) Candidiasis of skin: Code(s): B37.2 - Candidiasis of skin and nail Status: Acute Assessment and Plan: Skin much improved. Continue current wound care (9) Diabetes: Code(s): E11.9 - Type 2 diabetes mellitus without complications Status: Acute Assessment and Plan: The patient's blood glucose was reviewed on 02/05 Glucose remains reasonably well controlled. AccuCheks covering with sliding scale. Hypoglycemia protocol to be available as needed. Continue to monitor (10) Hypertension: Code(s): I10 - Essential (primary) hypertension Status: Chronic Assessment and Plan: Patient's blood pressure was reviewed on 02/05 Blood pressure well
[2023-02-05] MEDS: ceFAZolin 1 GM/NS 50 ML 1 GM/50 ML BAG IVPB (17:29)
[2023-02-05 20:20] LABS: Glucose Point of Care 160 mg/dl (65-105)
--- NOTE | 2023-02-05 21:34 | PC.NURSE ---
Report given to Mabel RN. Patient to 315. All patient belongings gathered.
[2023-02-06] VITALS (16 sets, daily range): BP systolic 105–144; BP diastolic 51–83; PULSE 66–81; RESP 12–20; TEMP 35.8–36.7; O2SAT 93–100
[2023-02-06 06:01] LABS: Basophils Percent Auto 0.7 % (0.2-1.2); Eosinophils Absolute Auto 0.1 K/mm3 (0-0.3); Eosinophils Percent Auto 1.1 % (0-4.4); Hematocrit 24.6 % (37.0-47.0); Hemoglobin 7.4 g/dL (12.0-15.0); Immature Granulocyte Absolute 0.04 K/mm3 (0.00-0.031); Immature Granulocyte Percent A 0.7 % (0-0.5); Lymphocytes Absolute Auto 1.66 K/mm3 (0.9-3.2); Lymphocytes Percent Auto 29.3 % (18.3-44.2); Mean Corpuscular HGB Conc 30.1 g/dl (32-36); Mean Corpuscular Hemoglobin 29.5 pg (26-34); Mean Platelet Volume 9.9 fl (7.4-10.4); Monocytes Absolute Auto 1.2 K/mm3 (0.1-0.6); Monocytes Percent Auto 20.5 % (2.6-8.5); Neutrophils Absolute Auto 2.7 K/mm3 (1.3-6.7); Neutrophils Percent Auto 47.7 % (45.5-73.1); Platelet Count Result 213 k/mm3 (150-375); Red Blood Count 2.51 M/mm3 (4.2-5.4); Red Cell Distribution Width 18.4 % (11.5-14.5); White Blood Count 5.7 K/mm3 (4.5-10.0)
[2023-02-06 06:15] LABS: Albumin Level 3.3 g/dL (3.5-5.1); Anion Gap 11 mmol/L (8-16); Blood Urea Nitrogen 30 mg/dL (7-17); Calcium 8.9 mg/dL (8.4-10.2); Carbon Dioxide 24 mmol/L (22-30); Chloride 100 mmol/L (98-107); Estimated CRCL calculation 16 ml/min; Estimated Glomerular Filt Rate 12; Glucose 94 mg/dL (65-110); Magnesium 1.8 mg/dL (1.6-2.3); Phosphorus 4.7 mg/dL (2.5-4.5); Potassium 3.7 mmol/L (3.4-5.0); Sodium 135 mmol/L (137-145)
[2023-02-06 06:18] LABS: Triglycerides 59 mg/dL (<150)
[2023-02-06 06:32] LABS: Iron 22 ug/dL (37-170)
[2023-02-06 06:41] LABS: Percent Iron Saturation 12 % (20-50)
--- NOTE | 2023-02-06 07:19 | WPDANESEPPF ---
Anes - Initial Pre Proc Eval Procedure: Operation Date: 01/30/23 17:15 Proposed Procedures p Insertion Julio Catheter - Gaudencio Painting MD Operation Date: 02/06/23 07:30 Proposed Procedures p Removal and Replacement of Tunneled Dialysis Catheter - Gaudencio Painting MD s Insertion Permacath - Gaudencio Painting MD Date/Time: 02/06/23 07:19 Surgeon: Katie Mares MD Pre Op Diagnosis: esrd Patient Data Age: 52 Gender: F Height: 1.6 m Weight: 86.2 kg Last Vital Signs Temp 35.8 C L 02/06/23 04:45 Pulse 81 02/06/23 04:45 Resp 16 02/06/23 04:45 BP 113/57 L 02/06/23 04:45 Pulse Ox 93 02/06/23 04:45 O2 Del Method Nasal Cannula 02/05/23 16:00 O2 Flow Rate 2 02/05/23 16:00 FiO2 60 02/05/23 04:00 Allergies Allergy/AdvReac Type Severity Reaction Status Date / Time metformin Allergy Unknown Verified 01/30/23 16:58 Home Medications Medication Instructions Recorded Confirmed Type albuterol sulfate 90 mcg/actuation 2 puff inhalation Q4H PRN Wheezing 01/30/23 01/30/23 History aerosol inhaler (Proventil HFA) atorvastatin 20 mg tablet 20 mg PO HS 01/30/23 01/30/23 History bisacodyl 10 mg rectal suppository 10 mg RECTAL DAILY PRN Constipation 01/30/23 01/30/23 History calcium carbonate 600 mg-vitamin 2 tablet PO DAILY 01/30/23 01/30/23 History D3 10 mcg (400 unit) tablet (Calcium 600 + D(3)) carvedilol 6.25 mg tablet 6.25 mg PO BID 01/30/23 01/30/23 History citalopram 40 mg tablet 20 mg PO DAILY 01/30/23 01/30/23 History cyclobenzaprine 10 mg tablet 10 mg PO HS PRN Muscle Spasm 01/30/23 01/30/23 History epoetin pérez 10,000 unit/mL 10,000 unit subcut USEASDIRECTD 01/30/23 01/30/23 History injection solution gabapentin 300 mg capsule 300 mg PO BID 01/30/23 01/30/23 History magnesium citrate (Citroma oral 296 ml PO DAILY PRN Constipation 01/30/23 01/30/23 History solution) magnesium hydroxide 400 mg/5 mL 30 ml PO HS PRN Constipation 01/30/23 01/30/23 History oral suspension (Milk of Magnesia) omeprazole magnesium 20 mg 20 mg PO DAILY 01/30/23 01/30/23 History tablet,delayed release (Prilosec OTC) ondansetron HCl 4 mg tablet 4 mg PO Q6H PRN Nausea And Vomiting 01/30/23 01/30/23 History oxybutynin chloride 5 mg 5 mg PO DAILY 01/30/23 01/30/23 History tablet,extended release 24 hr ropinirole 1 mg tablet 1 mg PO DAILY 01/30/23 01/30/23 History sodium phosphates 19 gram-7 See Rx Instructions .Route 01/30/23 01/30/23 History gram/118 mL enema (Fleet Enema) .COMPLEX PRN Constipation umeclidinium 62.5 mcg/actuation 1 inh inhalation DAILY 01/30/23 01/30/23 History blister powder for inhalation (Incruse Ellipta) Laboratory Tests 02/05/23 02/05/23 02/06/23 16:12 19:49 05:38 WBC 5.7 K/mm3 (4.5-10.0) RBC 2.51 L M/mm3 (4.2-5.4) Hgb 7.4 L g/dL (12.0-15.0) Hct 24.6 L % (37.0-47.0) MCV 98.0 fl (80-100) MCH 29.5 pg (26-34) MCHC 30.1 L g/dl (32-36) RDW 18.4 H % (11.5-14.5) Plt Count 213 k/mm3 (150-375) MPV 9.9 fl (7.4-10.4) Immature Gran % (Auto) 0.7 H % (0-0.5) Neut % (Auto) 47.7 % (45.5-73.1) Lymph % (Auto) 29.3 % (18.3-44.2) [place] % (Auto) 20.5 H % (2.6-8.5) Eos % (Auto) 1.1 % (0-4.4) Baso % (Auto) 0.7 % (0.2-1.2) Lymph # (Auto) 1.66 K/mm3 (0.9-3.2) [place] # (Auto) 1.2 H K/mm3 (0.1-0.6) Eos # (Auto) 0.1 K/mm3 (0-0.3) Baso # (Auto) 0.0 K/mm3 (0.0-0.1) Abs Immat Gran (auto) 0.04 H K/mm3 (0.00-0.031) Absolute Neuts (auto) 2.7 K/mm3 (1.3-6.7) Absolute Nucleated RBC 0.0 K/mm3 (0.0-0.012) Nucleated RBC % 0.0 % (0.0-0.2) Sodium 135 L mmol/L (137-145) Potassium 3.7 mmol/L (3.4-5.0) Chloride 100 mmol/L (98-107) Carbon Dioxide 24 mmol/L (22-30)
[2023-02-06 07:23] LABS: Glucose Point of Care 101 mg/dl (65-105)
--- NOTE | 2023-02-06 07:23 | WPDHPUPDATE1 ---
History and Physical Update Update Date/Time: 02/06/23 07:23 History and Physical has been reviewed, including an updated exam of the patient. There are NO changes in the patient's condition. Risks, benefits, and alternatives have been discussed and questions answered. Patient agrees to proceed with procedure.
[2023-02-06] MEDS: SODIUM CHLORIDE 0.9% IV 500 ML 30 ML IV CONT (07:45)
[2023-02-06] MEDS: BUPivacaine HCL 0.5% PF 30 ML VIAL INFILTRATE (08:15)
[2023-02-06] MEDS: LIDO 1%/EPINEPHRINE 1:100,000 50 ML VIAL 30 ML INFILTRATE (08:15)
[2023-02-06] MEDS: HEPARIN SODIUM 5,000 UNITS/ML VIAL 5000 UNITS XX (08:20)
[2023-02-06] MEDS: HEPARIN SODIUM 5,000 UNITS/ML VIAL 5000 UNITS IRRIGATION (08:22)
--- NOTE | 2023-02-06 09:17 | PCPTNOTE ---
The patient treatment was not able to be completed due to patient out of room for dialysis catheter procedure. Will plan to continue treatment per plan of care.
[2023-02-06 09:18] LABS: Glucose Point of Care 90 mg/dl (65-105)
--- NOTE | 2023-02-06 09:24 | W.PM.PROC2 ---
Procedure Note - Detailed Date of Procedure 02/06/23 Pre-op Diagnosis esrd, malfunctioning right internal jugular vein tunneled hemodialysis catheter Post-op Diagnosis Same Procedure Performed Placement of right subclavian vein tunneled hemodialysis catheter with intraoperative fluoroscopy, removal of right internal jugular vein malfunctioning tunneled hemodialysis catheter, and removal of non tunneled left subclavian vein hemodialysis catheter. Surgeon Gaudencio Painting MD Surfacing Technician DINA Mccarty Anesthesia General Indications Patient is a 52-year-old female who has end-stage renal disease and has a malfunctioning right internal jugular vein tunneled hemodialysis catheter in place. Is not infected. She has a temporary non tunneled left subclavian vein Julio hemodialysis catheter in place for hemodialysis currently well in the hospital. She presents now for removal of the nonfunctioning right internal jugular vein tunneled hemodialysis catheter with placement of a new tunneled hemodialysis catheter and removal of the temporary left subclavian vein non tunneled Julio hemodialysis catheter. Findings None significant. Description of Procedure After informed consent was obtained patient brought to the operating room she was placed supine position and then general LMA anesthesia was administered. The bilateral upper anterior chest and neck and existing catheters were then prepped sterilely into the same field. A time-out was then performed correctly identifying the patient as well as procedure to be performed. She was given 500mg of vancomycin perioperatively. I 1st started by attempting to place a guidewire through the existing right internal jugular vein tunneled hemodialysis catheter. This was unsuccessful as the guidewire would not pass. I then anesthetized the area over the cuff of the catheter in the right anterior lateral neck region and then made an incision was area dissected down to the subcutaneous cuff. The cuff was then dissected out circumferentially freeing the catheter from the subcutaneous tissues. I then placed a clamp distal to the cuff and cut the catheter off and then removed the tunneled portion of the catheter. With control of the distal portion of the catheter I attempted placement of the guidewire through the catheter once more. This again was unsuccessful. At this point I just removed the remaining ports catheter from the right internal jugular vein held pressure on the area for hemostasis. Once hemostasis was assured on the right internal jugular vein area, I then proceeded to try to cannulate the right subclavian vein. 1% lidocaine mixed with 0.5% Marcaine was then injected just below the medial 3rd of the right clavicle. A long 18gauge needle was then used to percutaneously cannulate the right internal jugular vein on the 2nd pass. There was prompt return of dark venous appearing blood. A guidewire was then passed through the needle into the right subclavian vein 70 down into the right atrium of the heart. Intraoperative fluoroscopy was then used to visualize the tip of the guidewire which showed in the proper position. I then proceeded to tunnel the new hemodialysis catheter along the right anterior chest. A scalp was then used to incise the skin and then the tunneling device attached to the tip of the new Perma catheter was placed to the subcutaneous tunnel and the catheter was brought out at the insertion site of the guidewire. The be not a me on the right subclavian vein was enlarged with serial dilation. Lastly a large dilator and sheath advanced over the guidewire. The dilator and guidewire were removed leaving the sheath in place. The catheter was then advanced through the sheath into the right subclavian vein and subsequent down into the distal superior vena cava. The sheath was then torn away leaving the catheter in place. Intraoperative fluoroscopy was then used to visualize the tip of the catheter once morning
[2023-02-06] MEDS: PANTOPRAZOLE SODIUM IV 40 MG VIAL IV PUSH (10:30)
[2023-02-06 11:50] LABS: Glucose Point of Care 85 mg/dl (65-105)
[2023-02-06] MEDS: oxyBUTYnin CHLORIDE XL 5 MG TAB.ER.24 PO (12:35)
[2023-02-06] MEDS: GABAPENTIN 300 MG CAPSULE PO ×2 (12:35→17:30)
[2023-02-06] MEDS: CITALOPRAM HYDROBROMIDE 20 MG TABLET PO (12:35)
[2023-02-06] MEDS: rOPINIRole HCL 1 MG TABLET PO (12:35)
[2023-02-06] MEDS: MORPHINE SULFATE (*CRX) 4 MG/ML INJ 2 MG IV PUSH ×2 (12:44→17:29)
--- NOTE | 2023-02-06 13:46 | PM.PNNEP ---
Progress Note: A&P Assessment and Plan (1) LEMUEL (acute kidney injury): Code(s): N17.9 - Acute kidney failure, unspecified Status: Acute Assessment and Plan: recently started on hemodialysis due to ATN secondary to septic shock (during hospitalization at [facility]) baseline creatinine ~ 1.6 - 2.0mg/dl currently dialysis dependent HD tomorrow -- outpatient dialysis schedule is T/T/S follow trend of repeat labs and UOP for potential recovery (2) Hemodialysis catheter malfunction: Code(s): T82.41XA - Breakdown (mechanical) of vascular dialysis catheter, initial encounter Status: Acute Assessment and Plan: temporary dialysis catheter was being used s/p new tunneled HD catheter today (3) Acute hypoxemic respiratory failure: Code(s): J96.01 - Acute respiratory failure with hypoxia Status: Acute Assessment and Plan: resolving continue supportive therapy with oxygen, inhalers etc. continue fluid removal to maintain euvolemia (4) Anemia: Qualifiers: Anemia type: unspecified type Qualified Code(s): D64.9 - Anemia, unspecified Code(s): D64.9 - Anemia, unspecified Status: Acute Assessment and Plan: as noted on admission presumable related to LEMUEL Epogen with HD follow trend of H/H (5) Hypertension: Code(s): I10 - Essential (primary) hypertension Status: Chronic Assessment and Plan: reasonable control follow trend of hemodynamics (6) Diabetes: Code(s): E11.9 - Type 2 diabetes mellitus without complications Status: Acute Assessment and Plan: follow accu-checks glycemic control per hospitalists Would not be opposed to discharge tomorrow after dialysis if otherwise medically stable. Will continue to follow. Subjective Date/time seen: 02/06/23 13:46 Interval history: Follow-up for acute kidney injury/acute renal failure on hemodialysis. S/P new tunneled HD catheter placement earlier today and tolerated this intervention without any issues or problems; no apparent distress voiced; no other events overnight or earlier this AM. Exam Narrative: General: middle aged female in NAD Heart: normal S1 and S2; no rub Lungs: coarse breath sounds and decreased at bases Abdomen: soft, nontender, + BS Extremities: no cyanosis or clubbing; trace edema Skin: Warm and intact Objective Data Vital Signs Vital Signs: Vital Signs Temp Pulse Resp BP Pulse Ox O2 Del Method O2 Flow Rate 02/06/23 13:33 97.7 F 78 20 134/62 99 02/06/23 11:10 97.7 F 75 14 144/78 H 100 02/06/23 10:30 97 Nasal Cannula 2 02/06/23 10:40 97.4 F L 72 20 138/75 99 02/06/23 10:25 97.4 F L 68 18 105/83 100 02/06/23 10:05 70 18 127/67 96 Nasal Cannula 2 02/06/23 09:50 70 18 126/56 L 93 Nasal Cannula 2 02/06/23 09:20 76 14 121/51 L 100 Nasal Cannula 2 02/06/23 09:35 72 16 108/58 L 96 Nasal Cannula 2 02/06/23 09:06 98.0 F 79 12 125/77 100 Simple Face Mask 6 02/06/23 07:46 97.9 F 77 14 120/54 L 98 Room Air 02/06/23 04:45 96.5 F L 81 16 113/57 L 93 02/05/23 20:32 84 02/05/23 19:46 97.5 F L 87 18 109/51 L 97 Intake/Output Intake/Output: Intake & Output 02/03/23 02/04/23 02/05/23 02/06/23 23:59 23:59 23:59 23:59 Intake Total 3114 022 6332 370 Output Total 750 1250 3509 700 Balance 312 -011 -5045 -330 Meds/Results Medications: Active Medications Generic Name Dose Route Start Last Admin Trade Name Freq PRN Reason Stop Dose Admin Acetaminophen 650 mg 02/05/23 16:46 02/05/23 16:52 Acetaminophen 325 Mg Tablet PO 650 mg Q6H PRN Administration Mild Pain (1-3) or Fever Albuterol 2.5 mg 02/01/23 08:36 02/01/23 08:52 Albuterol Sulfate Neb 2.5 Mg/3 Ml Inh INHALATION 2.5 mg Q4HRT PRN Administration Shortness Of Breath Or Wheezing Albuter
--- NOTE | 2023-02-06 15:07 | PM.IMPN ---
Progress Note: A&P Assessment and Plan (1) Acute hypoxemic respiratory failure: Code(s): J96.01 - Acute respiratory failure with hypoxia Status: Acute Assessment and Plan: Patient was intubated due to hypoxia from pulmonary edema and sedation for dialysis catheter placement on 01/30. She had DUF 01/30 and HD 01/31. She was placed on SBT and did well. She was able to be extubated on 01/31. HD used to control fluid balance with negative fluid balance -10L Transitioned to 2L NC. She is not wearing BiPAP at night. CXR 02/04:Small bilateral pleural effusions with associated airspace disease. Follow (2) End stage kidney disease: Code(s): N18.6 - End stage renal disease Status: Chronic Assessment and Plan: Her baseline Cr was 1.6-2.0. She developed ATN secondary to septic shock requiring HD when at [facility]. She ws discharged with Rt tunneled HD catheter for chronic HD but the catheter malfunctioned prompting this admission. A new HD catheter placed left subclavian on 01/30. HD with sluggish flow b/c new catheter was working poorly so GenSurg changed out the left SC HD line over a wire on 02/01 This newest catheter also performing poorly. Continue HD as tolerated. tunnelled catheter placed 02/06 Appreciated nephrology and GenSurg input (3) Altered mental status: Code(s): R41.82 - Altered mental status, unspecified Status: Acute Assessment and Plan: Patient confused on admission and post extubation. 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 B12 and TSH normal. [place] related to no HD, narcotics and poor metabolism. Mental status continues to improve overall Continue ST/PT/OT. Resolved (4) Hemodialysis catheter malfunction: Code(s): T82.41XA - Breakdown (mechanical) of vascular dialysis catheter, initial encounter Status: Acute Assessment and Plan: Her right tunneled catheter was nonfunctioning x 1 week before admission resulting in the fluid overload. Left subclavian catheter placed but then had trouble with that line. Line changed out 02/01 but again having trouble. Tunnel catheter placed 02/06 Appreciate GenSurg input (5) Pulmonary edema: Code(s): J81.1 - Chronic pulmonary edema Status: Acute Assessment and Plan: Related to being off HD. Much better with reinstituting HD Negative fluid balance (6) Anemia: Qualifiers: Anemia type: unspecified type Qualified Code(s): D64.9 - Anemia, unspecified Code(s): D64.9 - Anemia, unspecified Status: Acute Assessment and Plan: Hgb 6.4 on admission. Probably more chronic from her ESRD. Bruising noted. She is not on anticoagulation. Transfused 1U PRBC. EPO started. B12/folate normal. Hgb better in the 7 range and stable. Follow and transfuse as needed. Check iron studies (7) Cellulitis of right leg without foot: Code(s): L03.115 - Cellulitis of right lower limb Status: Acute Assessment and Plan: Rash noted with blistering to the right lower leg. No cultures obtained. Started on Cefazolin and Vanco. Rash has resolved. Okay to stop abx if okay with others. (8) Candidiasis of skin: Code(s): B37.2 - Candidiasis of skin and nail Status: Acute Assessment and Plan: Skin much improved. Continue current wound care (9) Diabetes: Code(s): E11.9 - Type 2 diabetes mellitus without complications Status: Acute Assessment and Plan: The patient's blood glucose was reviewed on 02/06 Glucose remains reasonably well controlled. AccuCheks covering with sliding scale. Hypoglycemia protocol to be available as needed. Continue to monitor (10) Hypertension: Code(s): I10 - Essential (primary) hypertension Status: Chronic Assessment and Plan: Patient's blood pressure was reviewed on 02/06 Blood pressure well contr
[2023-02-06 16:48] LABS: Glucose Point of Care 113 mg/dl (65-105)
[2023-02-06] MEDS: BUMETANIDE 1 MG TABLET 2 MG PO (17:30)
[2023-02-06] MEDS: carvediloL 6.25 MG TABLET PO (17:30)
[2023-02-06] MEDS: ceFAZolin 1 GM/NS 50 ML 1 GM/50 ML BAG IVPB (17:30)
[2023-02-06] MEDS: ATORVASTATIN 20 MG TABLET PO (20:34)
[2023-02-06 20:42] LABS: Glucose Point of Care 152 mg/dl (65-105)
[2023-02-07] VITALS (26 sets, daily range): BP systolic 96–139; BP diastolic 45–92; PULSE 65–80; RESP 2–18; TEMP 35.8–37; O2SAT 94–100
[2023-02-07 06:29] LABS: Hematocrit 25.5 % (37.0-47.0); Hemoglobin 7.6 g/dL (12.0-15.0); Mean Corpuscular HGB Conc 29.8 g/dl (32-36); Mean Corpuscular Volume 100.8 fl (80-100); Mean Platelet Volume 10.2 fl (7.4-10.4); Platelet Count Result 220 k/mm3 (150-375); Red Blood Count 2.53 M/mm3 (4.2-5.4); Red Cell Distribution Width 17.9 % (11.5-14.5); White Blood Count 5.5 K/mm3 (4.5-10.0)
[2023-02-07 06:50] LABS: Albumin Level 3.4 g/dL (3.5-5.1); Anion Gap 13 mmol/L (8-16); Blood Urea Nitrogen 44 mg/dL (7-17); Calcium 9.1 mg/dL (8.4-10.2); Carbon Dioxide 23 mmol/L (22-30); Chloride 99 mmol/L (98-107); Estimated CRCL calculation 13 ml/min; Estimated Glomerular Filt Rate 9; Glucose 83 mg/dL (65-110); Phosphorus 7.4 mg/dL (2.5-4.5); Potassium 4.1 mmol/L (3.4-5.0); Sodium 135 mmol/L (137-145)
[2023-02-07 07:56] LABS: Glucose Point of Care 65 mg/dl (65-105)
[2023-02-07 08:42] LABS: Glucose Point of Care 72 mg/dl (65-105)
[2023-02-07] MEDS: UMECLIDINIUM BROMIDE 62.5 MCG ELLIPTA 1 PUFF INHALATION (08:56)
[2023-02-07] MEDS: carvediloL 6.25 MG TABLET PO ×2 (10:09→17:54)
[2023-02-07] MEDS: CITALOPRAM HYDROBROMIDE 20 MG TABLET PO (10:13)
[2023-02-07] MEDS: PANTOPRAZOLE SODIUM IV 40 MG VIAL IV PUSH (10:13)
[2023-02-07] MEDS: oxyBUTYnin CHLORIDE XL 5 MG TAB.ER.24 PO (10:13)
[2023-02-07] MEDS: GABAPENTIN 300 MG CAPSULE PO ×2 (10:13→17:54)
[2023-02-07] MEDS: rOPINIRole HCL 1 MG TABLET PO (10:13)
[2023-02-07] MEDS: BUMETANIDE 1 MG TABLET 2 MG PO ×2 (10:14→17:54)
[2023-02-07 10:19] LABS: Glucose Point of Care 107 mg/dl (65-105)
[2023-02-07] MEDS: ENOXAPARIN 30 MG/0.3 ML SYRINGE SUB-Q (10:25)
--- NOTE | 2023-02-07 10:31 | PM.PNGS ---
Progress Note: A&P Assessment and Plan (1) Hemodialysis catheter malfunction: Code(s): T82.41XA - Breakdown (mechanical) of vascular dialysis catheter, initial encounter Status: Acute Assessment and Plan: Malfunctioning right internal jugular vein tunneled hemodialysis catheter has been removed. A new right subclavian tunneled hemodialysis catheter has been placed. He will be used this afternoon for hemodialysis. Hopefully will work well. The temporary left subclavian non tunneled Julio catheter has been removed as well. At this point she is dialyzing well then I have no reason the feels she needs to stay in hospital from surgery standpoint. Can follow up with surgery p.r.n.. Subjective Subjective Date/Time Seen: 02/07/23 10:31 Interval history: Patient is clinically stable today after removal of a malfunctioning right internal jugular vein tunneled hemodialysis catheter yesterday. She have placement of right subclavian vein tunneled hemodialysis catheter. That catheter has not been used yet. The dressings are dry. The wounds at the sites of removal of the right internal jugular vein catheter and temporary left subclavian vein catheter are clean and dry. She is breathing her baseline and feels okay. Exam Skin: Other: All the incisions are clean and dry. No bleeding and no drainage. The right subclavian vein Perma catheter is in place without any bleeding around the exit site. Objective Data Vital Signs Vital Signs: Vital Signs - 24 hr 02/06/23 10:40 02/06/23 11:10 02/06/23 13:43 Temperature 36.3 C L 36.5 C 36.5 C Pulse Rate 72 75 78 Respiratory Rate 20 14 20 Blood Pressure 138/75 144/78 H 134/62 Pulse Oximetry 99 100 99 Oxygen Delivery Oxygen Flow Rate Fraction of Inspired Oxygen 02/06/23 17:30 02/06/23 17:36 02/06/23 20:00 Temperature Pulse Rate 78 66 66 Respiratory Rate 14 14 Blood Pressure 121/57 L Pulse Oximetry 100 100 Oxygen Delivery Nasal Cannula Oxygen Flow Rate 2 Fraction of Inspired Oxygen 60 02/06/23 21:08 02/07/23 00:00 02/07/23 06:00 Temperature 36.4 C L 36.3 C L 35.8 C L Pulse Rate 72 71 70 Respiratory Rate 14 15 18 Blood Pressure 113/59 L 101/45 L 123/49 L Pulse Oximetry 100 100 97 Oxygen Delivery Oxygen Flow Rate Fraction of Inspired Oxygen 02/07/23 08:59 02/07/23 10:09 02/07/23 10:17 Temperature Pulse Rate 74 74 Respiratory Rate 14 Blood Pressure 116/50 L Pulse Oximetry 94 99 Oxygen Delivery Nasal Cannula Oxygen Flow Rate 2 Fraction of Inspired Oxygen Intake/Output Intake/Output: Intake & Output 02/04/23 02/05/23 02/06/23 02/07/23 23:59 23:59 23:59 23:59 Intake Total 740 1200 540 168 Output Total 1250 3509 700 [facility] -510 -2309 -160 168 Meds/Results Medications: Active Medications Generic Name Dose Route Start Last Admin Trade Name Freq PRN Reason Stop Dose Admin Acetaminophen 650 mg 02/05/23 16:46 02/05/23 16:52 Acetaminophen 325 Mg Tablet PO 650 mg Q6H PRN Administration Mild Pain (1-3) or Fever Albuterol 2.5 mg 02/01/23 08:36 02/01/23 08:52 Albuterol Sulfate Neb 2.5 Mg/3 Ml Inh INHALATION 2.5 mg Q4HRT PRN Administration Shortness Of Breath Or Wheezing Albuterol 2 puff 02/06/23 10:07 Albuterol Sulfate (*Sp) Aerosol 1 Puff INHALATION Q4H PRN Wheezing Atorvastatin Calcium 20 mg 02/06/23 21:00 02/06/23 20:34 Atorvastatin 20 Mg Tablet PO 20 mg HS ISSAC Administration Bisacodyl 10 mg 02/06/23 10:07 Bisacodyl 10 Mg Suppository RECTAL DAILY PRN Constipation Bumetanide 2 mg 02/03/23 09:00 02/07/23 10:14 Bumetanide 1 Mg Tablet PO 2 mg BID ISSAC Administration Calcium Carbonate 1,000 mg 02/06/23 12:00 02/07/23 10:12 Calcium/Vitamin D 500 Mg Tablet PO 03/09/23 11:59 1,000 mg DAILY ISSAC Administration Carvedilol 6.25 mg 02/06/23 10:25 02/07/23 10:09 Carvedilol 6.25 Mg Tablet PO
[2023-02-07 11:55] LABS: Glucose Point of Care 110 mg/dl (65-105)
--- NOTE | 2023-02-07 13:18 | WPDANESPN ---
Anes - Prog Note Post-Op Date/Time: 02/07/23 13:18 Cardiovascular status: normal Respiratory status: normal Airway patency: baseline Mental status: baseline Post-Op hydration status: normal Vital Signs: Last Vital Signs Temp 35.8 C L 02/07/23 06:00 Pulse 74 02/07/23 10:17 Resp 14 02/07/23 10:17 BP 116/50 L 02/07/23 10:17 Pulse Ox 99 02/07/23 10:17 O2 Del Method Nasal Cannula 02/07/23 08:59 O2 Flow Rate 2 02/07/23 08:59 FiO2 60 02/06/23 20:00 Pain Score (VAS): 0 I/O: Intake & Output 02/06/23 02/07/23 02/07/23 23:59 07:59 15:59 Intake Total 420 50 118 Balance 420 50 118 Laboratory Tests 02/07/23 05:44 02/07/23 05:44 02/06/23 02/06/23 02/07/23 16:42 20:37 05:44 WBC 5.5 RBC 2.53 L Hgb 7.6 L Hct 25.5 L MCV 100.8 H MCH 30.0 MCHC 29.8 L RDW 17.9 H Plt Count 220 MPV 10.2 Sodium 135 L Potassium 4.1 Chloride 99 Carbon Dioxide 23 Anion Gap 13 BUN 44 H D Creatinine 4.90 H Estim Creat Clear Calc 13 Estimated GFR 9 L Glucose 83 POC Capillary Glucose 113 H 152 H Calcium 9.1 Phosphorus 7.4 H Albumin 3.4 L SARS-CoV-2 RNA (RT-PCR) 02/07/23 02/07/23 02/07/23 07:43 08:38 10:16 WBC RBC Hgb Hct MCV MCH MCHC RDW Plt Count MPV Sodium Potassium Chloride Carbon Dioxide Anion Gap BUN Creatinine Estim Creat Clear Calc Estimated GFR Glucose POC Capillary Glucose 65 72 107 H Calcium Phosphorus Albumin SARS-CoV-2 RNA (RT-PCR) 02/07/23 02/07/23 11:53 12:47 WBC RBC Hgb Hct MCV MCH MCHC RDW Plt Count MPV Sodium Potassium Chloride Carbon Dioxide Anion Gap BUN Creatinine Estim Creat Clear Calc Estimated GFR Glucose POC Capillary Glucose 110 H Calcium Phosphorus Albumin SARS-CoV-2 RNA (RT-PCR) Pending Post-procedural complaints: none Patient Feedback: Patient satisfied with anesthetic care.
[2023-02-07 13:44] LABS: SARS-CoV-2 RNA PCR Negative (Negative)
--- NOTE | 2023-02-07 14:15 | P.PNNP_ITS ---
Progress Note: A&P Assessment and Plan (1) LEMUEL (acute kidney injury): Code(s): N17.9 - Acute kidney failure, unspecified Status: Acute Assessment and Plan: * recently started on hemodialysis due to ATN secondary to septic shock (during hospitalization at [facility]) * baseline creatinine ~ 1.6 - 2.0mg/dl * currently dialysis dependent * HD today -- outpatient dialysis schedule is T/T/S * follow trend of repeat labs and UOP for potential recovery * primary expansion joint builder = Dr. Karen Bradley (2) Hemodialysis catheter malfunction: Code(s): T82.41XA - Breakdown (mechanical) of vascular dialysis catheter, initial encounter Status: Acute Assessment and Plan: * temporary dialysis catheter was being used * s/p new tunneled HD catheter on 02/06/23 * appears to be working well (3) Acute hypoxemic respiratory failure: Code(s): J96.01 - Acute respiratory failure with hypoxia Status: Acute Assessment and Plan: * resolving * continue supportive therapy with oxygen, inhalers etc. * continue fluid removal to maintain euvolemia (4) Anemia: Qualifiers: Anemia type: unspecified type Qualified Code(s): D64.9 - Anemia, unspecified Code(s): D64.9 - Anemia, unspecified Status: Acute Assessment and Plan: * as noted on admission * presumable related to LEMUEL * Epogen with HD * follow trend of H/H (5) Hypertension: Code(s): I10 - Essential (primary) hypertension Status: Chronic Assessment and Plan: * reasonable control * follow trend of hemodynamics (6) Diabetes: Code(s): E11.9 - Type 2 diabetes mellitus without complications Status: Acute Assessment and Plan: * follow accu-checks * glycemic control per hospitalists Would not be opposed to discharge todat after dialysis if otherwise medically stable. Will continue to follow. Subjective Date/time seen: 02/07/23 14:15 Interval history: Follow-up for acute kidney injury/acute renal failure on hemodialysis. Tolerating hemodialysis treatment at the time of my visit (seen on HD at 2:00pm); new tunneled HD catheter which was placed yesterday morning appears to be working quite well; brathing/respiratory status remains stable if not better; making some urine with diuretic therapy; no apparent distress voiced at this time; anxious for discharge. Exam Narrative: General: middle aged female in NAD Heart: normal S1 and S2; no rub Lungs: coarse breath sounds Abdomen: soft, nontender, + BS Extremities: no cyanosis or clubbing; trace edema Skin: no rash or nodules Objective Data Vital Signs Vital Signs: Vital Signs Temp Pulse Resp BP Pulse Ox O2 Del Method O2 Flow Rate 02/07/23 14:15 74 113/65 02/07/23 14:00 66 119/69 02/07/23 13:45 65 139/78 02/07/23 13:30 76 136/81 02/07/23 13:26 71 124/70 02/07/23 13:26 2 02/07/23 13:14 97.8 F 72 16 126/71 02/07/23 08:00 99 Nasal Cannula 2 02/07/23 10:17 74 14 116/50 L 99 02/07/23 10:09 74 02/07/23 08:59 94 Nasal Cannula 2 02/07/23 06:00 96.5 F L 70 18 123/49 L 97 02/07/23 00:00 97.3 F L 71 15 101/45 L 100 02/06/23 21:08 97.5 F L 72 14 113/59
--- NOTE | 2023-02-07 14:15 | PM.PNNEP ---
Progress Note: A&P Assessment and Plan (1) LEMUEL (acute kidney injury): Code(s): N17.9 - Acute kidney failure, unspecified Status: Acute Assessment and Plan: recently started on hemodialysis due to ATN secondary to septic shock (during hospitalization at [facility]) baseline creatinine ~ 1.6 - 2.0mg/dl currently dialysis dependent HD today -- outpatient dialysis schedule is T/T/S follow trend of repeat labs and UOP for potential recovery primary weigher and grader = Dr. Karen Bradley (2) Hemodialysis catheter malfunction: Code(s): T82.41XA - Breakdown (mechanical) of vascular dialysis catheter, initial encounter Status: Acute Assessment and Plan: temporary dialysis catheter was being used s/p new tunneled HD catheter on 02/06/23 appears to be working well (3) Acute hypoxemic respiratory failure: Code(s): J96.01 - Acute respiratory failure with hypoxia Status: Acute Assessment and Plan: resolving continue supportive therapy with oxygen, inhalers etc. continue fluid removal to maintain euvolemia (4) Anemia: Qualifiers: Anemia type: unspecified type Qualified Code(s): D64.9 - Anemia, unspecified Code(s): D64.9 - Anemia, unspecified Status: Acute Assessment and Plan: as noted on admission presumable related to LEMUEL Epogen with HD follow trend of H/H (5) Hypertension: Code(s): I10 - Essential (primary) hypertension Status: Chronic Assessment and Plan: reasonable control follow trend of hemodynamics (6) Diabetes: Code(s): E11.9 - Type 2 diabetes mellitus without complications Status: Acute Assessment and Plan: follow accu-checks glycemic control per hospitalists Would not be opposed to discharge todat after dialysis if otherwise medically stable. Will continue to follow. Subjective Date/time seen: 02/07/23 14:15 Interval history: Follow-up for acute kidney injury/acute renal failure on hemodialysis. Tolerating hemodialysis treatment at the time of my visit (seen on HD at 2:00pm); new tunneled HD catheter which was placed yesterday morning appears to be working quite well; brathing/respiratory status remains stable if not better; making some urine with diuretic therapy; no apparent distress voiced at this time; anxious for discharge. Exam Narrative: General: middle aged female in NAD Heart: normal S1 and S2; no rub Lungs: coarse breath sounds Abdomen: soft, nontender, + BS Extremities: no cyanosis or clubbing; trace edema Skin: no rash or nodules Objective Data Vital Signs Vital Signs: Vital Signs Temp Pulse Resp BP Pulse Ox O2 Del Method O2 Flow Rate 02/07/23 14:15 74 113/65 02/07/23 14:00 66 119/69 02/07/23 13:45 65 139/78 02/07/23 13:30 76 136/81 02/07/23 13:26 71 124/70 02/07/23 13:26 2 02/07/23 13:14 97.8 F 72 16 126/71 02/07/23 08:00 99 Nasal Cannula 2 02/07/23 10:17 74 14 116/50 L 99 02/07/23 10:09 74 02/07/23 08:59 94 Nasal Cannula 2 02/07/23 06:00 96.5 F L 70 18 123/49 L 97 02/07/23 00:00 97.3 F L 71 15 101/45 L 100 02/06/23 21:08 97.5 F L 72 14 113/59 L 100 02/06/23 20:00 66 14 100 Nasal Cannula 2 02/06/23 17:36 66 14 121/57 L 100 02/06/23 17:30 78 Intake/Output Intake/Output: Intake & Output 02/04/23 02/05/23 02/06/23 02/07/23 23:59 23:59 23:59 23:59 Intake Total 740 1200 540 168 Output Total 1250 3509 700 [facility] [phone] Meds/Results Medications: Active Medications Generic Name Dose Route Start Last Admin Trade Name Freq PRN Reason Stop Dose Admin Acetaminophen 650 mg 02/05/23 16:46 02/05/23 16:52 Acetaminophen 325 Mg Tablet PO 650 mg Q6H PRN Administration Mild Pain (1-3) or Fever Albuterol 2.5 mg 02/01/23 08:36 02/01
--- NOTE | 2023-02-07 15:56 | P.DS_ITS ---
DS: Admitting Diagnosis Discharge Date 02/07/23 Admitting Diagnosis sob DS: Discharge Diagnosis Discharge Diagnosis (1) Acute hypoxemic respiratory failure: Code(s): J96.01 - Acute respiratory failure with hypoxia Status: Acute Assessment and Plan: Patient was intubated due to hypoxia from pulmonary edema and sedation for dialysis catheter placement on 01/30. She had DUF 01/30 and HD 01/31. She was placed on SBT and did well. She was able to be extubated on 01/31. HD used to control fluid balance with negative fluid balance -10L Transitioned to 2L NC. She is not wearing BiPAP at night. CXR 02/04:Small bilateral pleural effusions with associated airspace disease. Follow (2) End stage kidney disease: Code(s): N18.6 - End stage renal disease Status: Chronic Assessment and Plan: Her baseline Cr was 1.6-2.0. She developed ATN secondary to septic shock requiring HD when at [facility]. She ws discharged with Rt tunneled HD catheter for chronic HD but the catheter malfunctioned prompting this admission. A new HD catheter placed left subclavian on 01/30. HD with sluggish flow b/c new catheter was working poorly so GenSurg changed out the left SC HD line over a wire on 02/01 This newest catheter also performing poorly. Continue HD as tolerated. tunnelled catheter placed 02/06 Appreciated nephrology and GenSurg input (3) Altered mental status: Code(s): R41.82 - Altered mental status, unspecified Status: Acute Assessment and Plan: Patient confused on admission and post extubation. 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 B12 and TSH normal. Mcclure related to no HD, narcotics and poor metabolism. Mental status continues to improve overall Continue ST/PT/OT. Resolved (4) Hemodialysis catheter malfunction: Code(s): T82.41XA - Breakdown (mechanical) of vascular dialysis catheter, initial encounter Status: Acute Assessment and Plan: Her right tunneled catheter was nonfunctioning x 1 week before admission resulting in the fluid overload. Left subclavian catheter placed but then had trouble with that line. Line changed out 02/01 but again having trouble. Tunnel catheter placed 02/06 Appreciate GenSurg input (5) Pulmonary edema: Code(s): J81.1 - Chronic pulmonary edema Status: Acute Assessment and Plan: Related to being off HD. Much better with reinstituting HD Negative fluid balance (6) Anemia: Qualifiers: Anemia type: unspecified type Qualified Code(s): D64.9 - Anemia, unspecified Code(s): D64.9 - Anemia, unspecified Status: Acute Assessment and Plan: Hgb 6.4 on admission. Probably more chronic from her ESRD. Bruising noted. She is not on anticoagulation. Transfused 1U PRBC. EPO started. B12/folate normal. Hgb better in the 7 range and stable. Follow and transfuse as needed. Check iron studies (7) Cellulitis of right leg without foot: Code(s): L03.115 - Cellulitis of right lower limb Status: Acute Assessment and Plan: Rash noted with blistering to the right lower leg. No cultures obtained. Started on Cefazolin and Vanco. Rash has resolved. Okay to stop abx if okay with others. (8) Candidiasis of skin: Code(s): B37.2 - Candidiasis of skin and nail Status: Acute Assessment and Plan: Skin much improved. Continue current wound care (9) Diabetes: Code(s):
[2023-02-07] MEDS: EPOETIN ALFA 20,000 UNITS/ML VIAL 20000 UNITS IV PUSH (16:15)
[2023-02-07 16:57] LABS: Glucose Point of Care 90 mg/dl (65-105)
[2023-02-07] MEDS: HEPARIN SODIUM 1,000 UNITS/ML VIAL 5000 UNITS IV PUSH (17:13)
== END 2023-02-07 18:35 | DRG 466 ==
LOC: ANHED 01-30 07:30 → ANH3MED 01-30 14:30 → ANHICU 01-31 06:48 → ANHIMU 02-04 09:31 → ANH3MEDSUR 02-07 11:06 → ANH3MED 02-08 09:11 → ANH3MEDSUR 02-08 09:11 → ANHICU 02-08 09:11 → ANHIMU 02-08 09:11
PROVIDERS: Internal Medicine; Internal Medicine Nephrology; Nurse Practitioner; Surgery; Admitting Provider General Practice; Emergency Provider Emergency Medicine; PCP Internal Medicine; Visit Provider Student in an Organized Health Care Education/Training Program
PROC: 02HV33Z Insertion of Infusion Device into Superior Vena Cava, Percutaneous Approach (ICD-10-PCS; CPT 36908; principal; 2023-01-30 17:15)
PROC: 02HV33Z Insertion of Infusion Device into Superior Vena Cava, Percutaneous Approach (ICD-10-PCS; CPT 36589; 2023-02-06 07:30)
DX: T82.41XA Breakdown (mechanical) of vascular dialysis catheter, initial encounter (principal); I12.0 Hypertensive chronic kidney disease with stage 5 chronic kidney disease or end stage renal disease; J96.01 Acute respiratory failure with hypoxia; N17.9 Acute kidney failure, unspecified; N18.6 End stage renal disease; D63.1 Anemia in chronic kidney disease; L03.115 Cellulitis of right lower limb; B37.2 Candidiasis of skin and nail; E87.70 Fluid overload, unspecified; E11.22 Type 2 diabetes mellitus with diabetic chronic kidney disease; J44.9 Chronic obstructive pulmonary disease, unspecified; J81.1 Chronic pulmonary edema; Z66 Do not resuscitate; Z20.822 Contact with and (suspected) exposure to COVID-19; Z99.2 Dependence on renal dialysis; Z86.73 Personal history of transient ischemic attack (TIA), and cerebral infarction without residual deficits
CPT/HCPCS: 36415; 36430; 36600; 70450; 71045; 77001; 80053; 80069; 81001; 82375; 82607; 82728; 82746; 82805; 82948; 83036; 83050; 83540; 83550; 83605; 83735; 83880; 84100; 84443; 84478; 84484; 85025; 85027; 85610; 85730; 86706; 86850; 86900; 86901; 86923; 87340; 87635; 87637; 92610; 93005; 93306; 94002; 94640; 96361; 96374; 97110; 97161; 97165; 97530; 99285; A9270; C1750; C1752; C9113; G0257; J0690; J1644; J1650; J1815; J1940; J2250; J2270; J2405; J2704; J3010; J3370; J3475; J7030; J7040; J7050; P9016; P9047; Q4081; Q5105